=== PATIENT | female | born 1990 | race Caucasian/White ===

== ENCOUNTER → 2022-05-14 09:16 | Outpatient (CLI) | payer OTHER, SELFPAY | PROVIDERS: Visit Provider Obstetrics & Gynecology | DX: N39.0 Urinary tract infection, site not specified (principal) | CPT/HCPCS: 87086 ==

== ENCOUNTER 2022-07-12 09:39 | Emergency (ER) | payer OTHER, SELFPAY ==
[2022-07-12 10:25] VITALS: BP 140/89; PULSE 85; RESP 19; TEMP 36.8; O2SAT 98; BMI 41.3
--- NOTE | 2022-07-12 10:51 | EXP.UTC ---
Discharge Plan Disposition Patient Disposition: Home, Self-Care Condition: Good Prescriptions Prescriptions: New methylprednisolone [Medrol (Isreal)] 4 mg tablets,dose pack See Rx Instructions .Route .COMPLEX 6 Days Qty: 21 0RF Rx Instructions: taper pack; gsjiqhyxykxlhij-cvxcclscu-YY [Bromfed DM] 2-30-10 mg/5 mL Syrup 10 ml PO Q4H PRN (Reason: Cough) Qty: 240 0RF amoxicillin-pot clavulanate 875-125 mg Tablet 1 tab PO Q12H Qty: 20 0RF No Action cholecalciferol (vitamin D3) 1,250 mcg (50,000 unit) capsule 1,250 mcg PO WEEKLY ascorbic acid (vitamin C) 500 mg capsule PO omeprazole magnesium [Acid [employer] Programs Director (omeprazole)] 20 mg capsule,delayed release(DR/EC) 20 mg PO DAILY Referrals Follow up/Referrals: Provider,Referral, MD [Primary Care Provider] - See instructions Activity Restrictions/Add. Instructions Additional Instructions/Restrictions: *Monitor Temp, Over the counter Motrin or Tylenol as directed/as needed Tylenol every 4 hours and Motrin every 6 hours (as long as your family doctor has told you that you can take it) for fever or pain. and straight to ER if unable to lower temp less than 101.0 after medication given *Warm salt water gargles may help to soothe the throat *Throat Lozenges? *Warm fluids like tea with honey may help to soothe the throat? *Sleep elevated *Humidifier/Vaporizer *Bromfed may cause drowsiness. Know how it effects you (your child) before driving, caring for small child, or sending your child to school. Not other antihistamines/allergy medications while taking bromfed Follow up IMMEDIATELY for new or worsening symptoms or no Noticeable improvement over the next 48-72 hours. 911 for difficulty breathing or swallowing Clinical Impressions Clinical Impression: Sinusitis Instructions Patient Instructions: DI for Sinusitis, Sinusitis Discharge ED Provider: Gill Tsai [facility] HPI General Stated complaint: Congestion, cough Mode of Arrival: Ambulatory Source of Information: Patient Limitations: No Limitations Time Seen by Provider: 07/12/22 10:52 Description of Symptoms (Recalled from Triage Doc. by RN): PATIENT C/O PRODUCTIVE COUGH X 1 WEEK HEENT Symptoms (Recalled from RN notes): No Resp Symptoms (Recalled from RN notes): Yes Skin Symptoms (Recalled from RN notes): No MS Symptoms (Recalled from RN notes): No Functional Status (Recalled from RN notes): WNL History of Present Illness Provider Complaint: Patient states that she has been having sinus pain and pressure, cough and when she wakes up in the morning at times she can cough up some mucous States that today she was still having pressure behind her eyes so she came in to get checked Related Data Home Medications Medication Instructions Recorded Confirmed ascorbic acid (vitamin C) 500 mg mg PO 05/13/22 05/13/22 capsule cholecalciferol (vitamin D3) 1,250 1,250 mcg PO WEEKLY 05/13/22 05/13/22 mcg (50,000 unit) capsule omeprazole magnesium 20 mg 20 mg PO DAILY 05/13/22 05/13/22 capsule,delayed release (Acid [employer] Programs Director (omeprazole)) Previous Rx's Medication Instructions Recorded amoxicillin 875 mg-potassium 1 tab PO Q12H #20 tabs 07/12/22 clavulanate 125 mg tablet ssjgbczrxsmuyst-ripshiewxdxfkhw-FD 10 ml PO Q4H PRN Cough #240 mL 07/12/22 2 mg-30 mg-10 mg/5 mL oral syrup (Bromfed DM) methylprednisolone 4 mg tablets in See Rx Instructions .Route 07/12/22 a dose pack (Medrol (Isreal)) .COMPLEX 6 days #21 tabs Allergies Allergy/AdvReac Type Severity Reaction Status Date / Time codeine Allergy Mild nauseated Verified 05/13/22 14:18 Worker's Comp Is this a Worker's Comp case?: No PFSH PFSH Medical History (Updated 07/12/22 @ 11:03 by Gill Tsai APRN) Anxiety Depression Social History (Updated 07/12/22 @ 10:39 by Nohemi David RN) Smoking Status: Never smoker second hand exposure: No alcohol intake: never
[2022-07-12 11:03] VITALS: BP 140/89; PULSE 85; RESP 19; TEMP 36.8; O2SAT 98
== END 2022-07-12 11:09 | disposition home or self-care (01) ==
PROVIDERS: Emergency Provider Nurse Practitioner
DX: J32.9 Chronic sinusitis, unspecified (principal)
CPT/HCPCS: 99212; G0463

== ENCOUNTER 2022-07-31 14:28 | Emergency (ER) | payer OTHER, SELFPAY ==
[2022-07-31 15:45] VITALS: BP 141/77; PULSE 78; RESP 18; TEMP 36.6; O2SAT 99; BMI 46.0
--- NOTE | 2022-07-31 16:07 | EXP.UTC ---
Discharge Plan Disposition Patient Disposition: Home, Self-Care Condition: Good Prescriptions Prescriptions: New phenazopyridine [Pyridium] 200 mg tablet 200 mg PO Q8H 2 Days Qty: 6 0RF nitrofurantoin monohyd/m-cryst [Macrobid] 100 mg capsule 100 mg PO Q12H 5 Days Qty: 10 0RF Rx Instructions: must administer with a meal/food No Action cholecalciferol (vitamin D3) 1,250 mcg (50,000 unit) capsule 1,250 mcg PO WEEKLY ascorbic acid (vitamin C) 500 mg capsule PO omeprazole magnesium [Acid [employer]ler (omeprazole)] 20 mg capsule,delayed release(DR/EC) 20 mg PO DAILY methylprednisolone [Medrol (Isreal)] 4 mg tablets,dose pack See Rx Instructions .Route .COMPLEX 6 Days Qty: 21 0RF Rx Instructions: taper pack; kvoyuxeazwhqvee-protorszf-AM [Bromfed DM] 2-30-10 mg/5 mL Syrup 10 ml PO Q4H PRN (Reason: Cough) Qty: 240 0RF amoxicillin-pot clavulanate 875-125 mg Tablet 1 tab PO Q12H Qty: 20 0RF Referrals Follow up/Referrals: Ish Deng [Primary Care Provider] - See instructions Activity Restrictions/Add. Instructions Additional Instructions/Restrictions: *Increase fluids. Water not Soda or Tea *Start antibiotic immediately and be sure to take as ordered for the FULL length of time although you should start to see improvement over the next 48 hours *Pyridium as needed Remember this medication will turn your urine . This is normal but it will stain what ever it gets on *You should not use Pyridium for more than 48 hours. If so , follow up with your primary physician to review urine culture and ensure that antibiotic is adequate for infection *Be SURE to follow up anytime for new or worsening symptoms with your family doctor. AND in 48 hours for urine culture results with your family doctor, if you do not have a doctor then you may call back to the [facility] for urine culture results and further treatment. We do recommend that you choose and establish care with a Primary Care Physician. ?AND follow up with them ?in 10-14 days to repeat UA to ensure infection is resolved and blood no longer present *Be sure to let your PCP know that we sent urine cultures from the [facility] so they can follow up to ensure that you area the on the correct antibiotic Call your doctor office and make appointment for 48 hours (2 days from today) ?to follow up and get the results of your urine culture and further treatment Clinical Impressions Clinical Impression: Urinary tract infection Instructions Patient Instructions: DI for Urinary Tract Infection (UTI) Discharge ED Provider: Gill Tsai [facility] HPI General Stated complaint: Possible bladder infection, burning, urgency, pain Mode of Arrival: Ambulatory Source of Information: Patient Limitations: No Limitations Time Seen by Provider: 07/31/22 16:08 Description of Symptoms (Recalled from Triage Doc. by RN): PATIENT C/O BLADDER PRESSURE AND BURNING WITH URINATION THAT STARTED THIS MORNING HEENT Symptoms (Recalled from RN notes): No Resp Symptoms (Recalled from RN notes): No Skin Symptoms (Recalled from RN notes): No MS Symptoms (Recalled from RN notes): No Functional Status (Recalled from RN notes): WNL History of Present Illness Provider Complaint: Patient states that this morning she started having some burning with urination and the feeling like she had to go States that she has been having pressure and urinating more frequently than usual and feels like it did when she had UTI Related Data Home Medications Medication Instructions Recorded Confirmed ascorbic acid (vitamin C) 500 mg mg PO 05/13/22 05/13/22 capsule cholecalciferol (vitamin D3) 1,250 1,250 mcg PO WEEKLY 05/13/22 05/13/22 mcg (50,000 unit) capsule omeprazole magnesium 20 mg 20 mg PO DAILY 05/13/22 05/13/22 capsule,delayed release (Acid [employer]ler (omeprazole)) Previous Rx's Medication Instructions Recorded amoxicillin 875 mg-potassium 1 tab PO Q12H #20 tabs 07/12/22 c
[2022-07-31 16:13] VITALS: BP 141/77; PULSE 78; RESP 18; TEMP 36.6; O2SAT 99
[2022-07-31 16:15] LABS: Apearance,Urine Clear (Clear); Bilirubin,Urine Negative (Negative); Blood, Urine Trace (Negative); Color,Urine Yellow (Yellow); Glucose,Urine (UA) Negative (Negative); Ketones,Urine Negative (Negative); Protein,Urine Negative (Negative); UTC Leukocyte Esterase,Urine Negative (Negative); UTC Nitrate,Urine Negative (Negative); Urobilinogen,Urine 1 EU/dl (0.2)
== END 2022-07-31 16:24 | disposition home or self-care (01) ==
PROVIDERS: Emergency Provider Nurse Practitioner; PCP Pediatrics
DX: N39.0 Urinary tract infection, site not specified (principal)
CPT/HCPCS: 81003; 87086; 87088; 87186; 99212; G0463

== ENCOUNTER 2022-09-03 09:59 | Emergency (ER) | payer OTHER, SELFPAY ==
[2022-09-03 10:18] VITALS: BP 145/80; PULSE 60; RESP 19; TEMP 36.8; O2SAT 98; BMI 46.0
--- NOTE | 2022-09-03 10:32 | EXP.UTC ---
Discharge Plan Disposition Patient Disposition: Home, Self-Care Condition: Good Prescriptions Prescriptions: New onwtqwifgqhjfoc-ikexforkc-ZS [Bromfed DM] 2-30-10 mg/5 mL Syrup 10 ml PO Q4H PRN (Reason: Cough) Qty: 240 0RF amoxicillin-pot clavulanate 875-125 mg Tablet 1 tab PO Q12H Qty: 20 0RF polymyxin B sulf-trimethoprim [Polytrim] 10,000 unit- 1 mg/mL drops 2 drp ophthalmic (eye) Q6H 7 Days Qty: 10 0RF Rx Instructions: right eye while awake; do not exceed 6 doses in 24 hours methylprednisolone [Medrol (Isreal)] 4 mg tablets,dose pack See Rx Instructions .Route .COMPLEX 6 Days Qty: 21 0RF Rx Instructions: taper pack; No Action cholecalciferol (vitamin D3) 1,250 mcg (50,000 unit) capsule 1,250 mcg PO WEEKLY ascorbic acid (vitamin C) 500 mg capsule PO omeprazole magnesium [Acid Program Support Assistant (omeprazole)] 20 mg capsule,delayed release(DR/EC) 20 mg PO DAILY methylprednisolone [Medrol (Isreal)] 4 mg tablets,dose pack See Rx Instructions .Route .COMPLEX 6 Days Qty: 21 0RF Rx Instructions: taper pack; adnfyxolmjidwyu-zqyfpucua-UN [Bromfed DM] 2-30-10 mg/5 mL Syrup 10 ml PO Q4H PRN (Reason: Cough) Qty: 240 0RF amoxicillin-pot clavulanate 875-125 mg Tablet 1 tab PO Q12H Qty: 20 0RF phenazopyridine [Pyridium] 200 mg tablet 200 mg PO Q8H 2 Days Qty: 6 0RF nitrofurantoin monohyd/m-cryst [Macrobid] 100 mg capsule 100 mg PO Q12H 5 Days Qty: 10 0RF Rx Instructions: must administer with a meal/food Referrals Follow up/Referrals: Ish Sherwood MD [Primary Care Provider] - See instructions Activity Restrictions/Add. Instructions Additional Instructions/Restrictions: *Monitor Temp, Over the counter Motrin or Tylenol as directed/as needed Tylenol every 4 hours and Motrin every 6 hours (as long as your family doctor has told you that you can take it) for fever or pain. and straight to ER if unable to lower temp less than 101.0 after medication given *Warm salt water gargles may help to soothe the throat *Throat Lozenges? *Warm fluids like tea with honey may help to soothe the throat? *Sleep elevated *Humidifier/Vaporizer *Flonase 2 sprays in each nostril daily but be aware that it may take 2-3 days before you notice improvement Follow up IMMEDIATELY for new or worsening symptoms or no Noticeable improvement over the next 48-72 hours. 911 for difficulty breathing or swallowing Clinical Impressions Clinical Impression: Sinusitis, Conjunctivitis Instructions Patient Instructions: Conjunctivitis, DI for Conjunctivitis, DI for Sinusitis, Sinusitis Discharge ED Provider: Gill Tsai [facility] [place] General Stated complaint: Sinus pain, drainage, congestion, RT eye redness Mode of Arrival: Ambulatory Source of Information: Patient Limitations: No Limitations Time Seen by Provider: 09/03/22 10:32 Description of Symptoms (Recalled from Triage Doc. by RN): sinus pressure, nasal drainage (Yellow/green), and right eye is pink HEENT Symptoms (Recalled from RN notes): Yes Resp Symptoms (Recalled from RN notes): Yes Skin Symptoms (Recalled from RN notes): No MS Symptoms (Recalled from RN notes): No Functional Status (Recalled from RN notes): n/a History of Present Illness Provider Complaint: Patient states that for about a week she has been having sinus congestion and pressure along with cough States that today she woke up and her right eye was matted shut so she came in to get checked Related Data Home Medications Medication Instructions Recorded Confirmed ascorbic acid (vitamin C) 500 mg mg PO 05/13/22 05/13/22 capsule cholecalciferol (vitamin D3) 1,250 1,250 mcg PO WEEKLY 05/13/22 05/13/22 mcg (50,000 unit) capsule omeprazole magnesium 20 mg 20 mg PO DAILY 05/13/22 05/13/22 capsule,delayed release (Acid Program Support Assistant (omeprazole)) Previous Rx's Medication Instructions Recorded amoxicillin 875 mg-p
[2022-09-03 11:02] VITALS: BP 145/80; PULSE 60; RESP 19; TEMP 36.8; O2SAT 98
== END 2022-09-03 11:02 | disposition home or self-care (01) ==
PROVIDERS: Emergency Provider Nurse Practitioner; PCP Pediatrics
DX: J32.9 Chronic sinusitis, unspecified (principal); H10.9 Unspecified conjunctivitis
CPT/HCPCS: 99212; 99213; G0463

== ENCOUNTER → 2023-06-24 08:12 | Outpatient (CLI) | payer OTHER, SELFPAY ==
--- NOTE | 2023-06-24 08:16 | XR_ITS ---
FINAL REPORT CLINICAL HISTORY: Lt Hand Pain..fx 4th ring finger..shielded COMPARISON: None FINDINGS: LEFT HAND: 3 views of the left hand were obtained. There is an oblique nondisplaced fracture of the fourth metacarpal diaphysis. Dorsal soft tissue swelling is identified. Visualized joint spaces are normally aligned. Soft tissues are unremarkable. IMPRESSION: Oblique nondisplaced fracture fourth metacarpal diaphysis as described with associated soft tissue swelling. Reviewed, Interpreted and Dictated by Acosta Arita III, MD Transcribed by Ewa Soto Authenticated and [facility]
== END ==
PROVIDERS: PCP Pediatrics; Visit Provider Orthopaedic Surgery
DX: M79.642 Pain in left hand (principal)
CPT/HCPCS: 73130

== ENCOUNTER → 2023-07-15 08:47 | Outpatient (CLI) | payer OTHER, SELFPAY ==
--- NOTE | 2023-07-15 08:52 | XR_ITS ---
FINAL REPORT CLINICAL HISTORY: left hand fx 3 weeks ago COMPARISON: 06/24/2023 FINDINGS: Left hand Three views were obtained. There is a healing fracture of the proximal 4th metacarpal diaphysis with callus formation. The joint spaces appear normal. No soft tissue abnormality is identified. IMPRESSION: Healing fracture as above. Reviewed, Interpreted and Dictated by Justin Garcia MD Transcribed by Ree Malloy Authenticated and [facility]
== END ==
PROVIDERS: PCP Pediatrics; Visit Provider Orthopaedic Surgery
DX: S62.92XA Unspecified fracture of left hand, initial encounter for closed fracture (principal); Y99.9 Unspecified external cause status
CPT/HCPCS: 73120

== ENCOUNTER 2023-07-30 09:48 | Emergency (ER) | payer OTHER, SELFPAY ==
[2023-07-30 09:55] VITALS: BP 141/92; PULSE 70; RESP 18; TEMP 36.7; O2SAT 98; BMI 49.6
--- NOTE | 2023-07-30 10:11 | EXP.UTC ---
Discharge Plan Disposition Patient Disposition: Home, Self-Care Condition: Good Prescriptions Prescriptions: New methylprednisolone [Medrol (Isreal)] 4 mg tablets,dose pack See Rx Instructions .Route .COMPLEX 6 Days Qty: 21 0RF Rx Instructions: taper pack; ondansetron 4 mg tablet,disintegrating 4 mg PO Q8H PRN (Reason: nausea and vomiting) Qty: 10 0RF amoxicillin-pot clavulanate 875-125 mg Tablet 1 tab PO Q12H Qty: 20 0RF guaifenesin [Mucinex] 600 mg tablet extended release 12hr 1,200 mg PO BID PRN (Reason: cough) Qty: 20 0RF No Action paroxetine HCl 20 mg tablet 20 mg PO DAILY Patient Comments: TAKE 1 TABLET BY MOUTH ONCE DAILY omeprazole 20 mg Capsule,Delayed Release(Dr/Ec) 20 mg PO DAILY Referrals Follow up/Referrals: Ish Sherwood MD [Primary Care Provider] - See instructions Activity Restrictions/Add. Instructions Additional Instructions/Restrictions: *Monitor Temp, Over the counter Motrin or Tylenol as directed/as needed Tylenol every 4 hours and Motrin every 6 hours (as long as your family doctor has told you that you can take it) for fever or pain. and straight to ER if unable to lower temp less than 101.0 after medication given *Warm salt water gargles may help to soothe the throat *Throat Lozenges? *Warm fluids like tea with honey may help to soothe the throat? *Sleep elevated *Humidifier/Vaporizer Take medication as prescribed Follow up IMMEDIATELY for new or worsening symptoms or no Noticeable improvement over the next 48-72 hours. 911 for difficulty breathing or swallowing Clinical Impressions Clinical Impression: Sinusitis Qualifiers: Sinusitis location: unspecified location Chronicity: unspecified Qualified Code(s): J32.9 - Chronic sinusitis, unspecified Instructions Patient Instructions: DI for Sinusitis, Sinusitis Discharge ED Provider: Gill Tsai [facility] General Stated complaint: congestion, headache, nauseous Mode of Arrival: Ambulatory Source of Information: Patient Limitations: No Limitations Time Seen by Provider: 07/30/23 10:11 Description of Symptoms (Recalled from Triage Doc. by RN): PATIENT C/O HEADACHE, COUGH, AND NAUSEA SINCE YESTERDAY HEENT Symptoms (Recalled from RN notes): Yes Resp Symptoms (Recalled from RN notes): Yes Skin Symptoms (Recalled from RN notes): No MS Symptoms (Recalled from RN notes): No Functional Status (Recalled from RN notes): WNL History of Present Illness Provider Complaint: Patient states that she has been having sinus congsetion and pressure for about 2 weeks that has continued to get worse States that yesterday she started with cough and nausea so today when she was still not feeling any better she came in to get checked Related Data Home Medications Medication Instructions Recorded Confirmed omeprazole 20 mg capsule,delayed 20 mg PO DAILY 07/30/23 07/30/23 release paroxetine HCl 20 mg tablet 20 mg PO DAILY 07/30/23 07/30/23 Previous Rx's Medication Instructions Recorded amoxicillin 875 mg-potassium 1 tab PO Q12H #20 tabs 07/30/23 clavulanate 125 mg tablet guaifenesin 600 mg tablet, 1,200 mg PO BID PRN cough #20 tabs 07/30/23 extended release 12 hr (Mucinex) methylprednisolone 4 mg tablets in See Rx Instructions .Route 07/30/23 a dose pack (Medrol (Isreal)) .COMPLEX 6 days #21 tabs ondansetron 4 mg disintegrating 4 mg PO Q8H PRN nausea and 07/30/23 tablet vomiting #10 tabs Allergies Allergy/AdvReac Type Severity Reaction Status Date / Time codeine Allergy Mild nauseated Verified 07/15/23 09:05 nut - unspecified Allergy Verified 07/30/23 10:10 Worker's Comp Is this a Worker's Comp case?: [facility] Dis[facility]: The information contained in this section may have been updated after the patient was seen, as this information can be updated by other users. Medical History (Reviewed 07/15/23 @ 09:05 by Selin Cameron
[2023-07-30 10:20] VITALS: BP 141/92; PULSE 70; RESP 18; TEMP 36.7; O2SAT 98
== END 2023-07-30 10:23 | disposition home or self-care (01) ==
PROVIDERS: Emergency Provider Nurse Practitioner; PCP Pediatrics
DX: J01.90 Acute sinusitis, unspecified (principal); R51.9 Headache, unspecified; R05.9 Cough, unspecified; R09.81 Nasal congestion; R11.0 Nausea
CPT/HCPCS: 99212; 99214; G0463

== ENCOUNTER 2023-08-30 12:06 | Emergency (ER) | payer OTHER, SELFPAY ==
[2023-08-30 12:45] VITALS: BP 132/66; PULSE 77; RESP 21; TEMP 36.7; O2SAT 97; BMI 48.0
--- NOTE | 2023-08-30 12:51 | EXP.UTC ---
Discharge Plan Disposition Patient Disposition: Home, Self-Care Condition: Good Prescriptions Prescriptions: New promethazine-DM 6.25-15 mg/5 mL Syrup 5 ml PO Q6H PRN (Reason: Cough) Qty: 240 0RF methylprednisolone 4 mg Tablets,Dose Pack 4 mg PO DIRECTED 6 Days Qty: 21 0RF Rx Instructions: Take 1 pack as directed for 6 days albuterol sulfate [Ventolin HFA] 90 mcg/actuation HFA aerosol inhaler 2 puff inhalation Q6H PRN (Reason: shortness of breath or wheezing) Qty: 6.7 0RF amoxicillin-pot clavulanate 875-125 mg Tablet 1 tab PO Q12H Qty: 20 0RF guaifenesin [Mucinex] 600 mg tablet extended release 12hr 600 - 1,200 mg PO BIDP PRN (Reason: Congestion) Qty: 30 0RF No Action diclofenac sodium [Voltaren Arthritis Pain] 1 % gel 2 g topical QID Qty: 100 3RF Rx Instructions: apply to single elbow, wrist or hand; for hand includes palm/fingers/back of hand paroxetine HCl 20 mg tablet 20 mg PO DAILY Patient Comments: TAKE 1 TABLET BY MOUTH ONCE DAILY omeprazole 20 mg Capsule,Delayed Release(Dr/Ec) 20 mg PO DAILY methylprednisolone [Medrol (Isreal)] 4 mg tablets,dose pack See Rx Instructions .Route .COMPLEX 6 Days Qty: 21 0RF Rx Instructions: taper pack; ondansetron 4 mg tablet,disintegrating 4 mg PO Q8H PRN (Reason: nausea and vomiting) Qty: 10 0RF amoxicillin-pot clavulanate 875-125 mg Tablet 1 tab PO Q12H Qty: 20 0RF guaifenesin [Mucinex] 600 mg tablet extended release 12hr 1,200 mg PO BID PRN (Reason: cough) Qty: 20 0RF Referrals Follow up/Referrals: Ish Sherwood MD [Primary Care Provider] - See instructions Activity Restrictions/Add. Instructions Additional Instructions/Restrictions: Drink plenty of fluids. Take tylenol or ibuprofen for pain or fever. Take the medications as directed. Follow up with your regular doctor. GO TO THE ER FOR ANY WORSENING SYMPTOMS Clinical Impressions Clinical Impression: Sinusitis Instructions Patient Instructions: Sinusitis, DI for Sinusitis [place] ED [place] Bashir [place] [facility] [place] General Stated complaint: congestion cough Mode of Arrival: Ambulatory Source of Information: Patient Limitations: No Limitations Time Seen by Provider: 08/30/23 12:51 Description of Symptoms (Recalled from Triage Doc. by RN): PATIENT C/O COUGH AND CONGESTION SINCE LAST FRIDAY HEENT Symptoms (Recalled from RN notes): Yes Resp Symptoms (Recalled from RN notes): Yes Skin Symptoms (Recalled from RN notes): No MS Symptoms (Recalled from RN notes): No Functional Status (Recalled from RN notes): WNL History of Present Illness Provider Complaint: She states that for the past 5 days she has had sinus congestion, cough, and malaise. Related Data Home Medications Medication Instructions Recorded Confirmed omeprazole 20 mg capsule,delayed 20 mg PO DAILY 07/30/23 08/05/23 release paroxetine HCl 20 mg tablet 20 mg PO DAILY 07/30/23 08/30/23 Previous Rx's Medication Instructions Recorded amoxicillin 875 mg-potassium 1 tab PO Q12H #20 tabs 07/30/23 clavulanate 125 mg tablet guaifenesin 600 mg tablet, 1,200 mg PO BID PRN cough #20 tabs 07/30/23 extended release 12 hr (Mucinex) methylprednisolone 4 mg tablets in See Rx Instructions .Route 07/30/23 a dose pack (Medrol (Isreal)) .COMPLEX 6 days #21 tabs ondansetron 4 mg disintegrating 4 mg PO Q8H PRN nausea and 07/30/23 tablet vomiting #10 tabs diclofenac sodium 1 % topical gel 2 g topical QID #100 grams 08/05/23 (Voltaren Arthritis Pain) albuterol sulfate 90 mcg/actuation 2 puff inhalation Q6H PRN 08/30/23 aerosol inhaler (Ventolin HFA) shortness of breath or wheezing #6.7 grams amoxicillin 875 mg-potassium 1 tab PO Q12H #20 tabs 08/30/23 clavulanate 125 mg tablet guaifenesin 600 mg tablet, 600 - 1,200 mg PO BIDP PRN 08/30/23 extended release 12 hr (Mucinex) Congestion #30 tabs methylprednisolone 4 mg tablets in 4 mg PO DIRECTED 6 days #21 tabs 08/30/23 a dose pack promethazine-DM 6.25 mg-15 mg/5 mL 5 ml PO Q6H PRN Cough #240 mL 08/30/23 oral syrup Allergies Allergy/AdvReac Type Severity Reaction Status Date / Time codeine Allergy Mild nauseated Verified 08/05/23 10:22 nut - unspecified Allergy Verified 08/05/23 10:22 Worker's Comp Is this a Worker's Comp case?: No [facility] Disclaimer: The information contained in this section may have been updated after the patient was seen, as this information can be updated by other users. Medical History Anxiety Depression History of anemia Urinary tract infection Surgical History History of wisdom tooth extraction Social History Smoking Status: Never smoker second hand exposure: No alcohol intake: never substance use type: denies use current occupational status: employed Travel in the last 8 weeks: None housing: house current occupational exposures/hazards: No ROS Obtained: Yes All systems reviewed & no additional complaints except as documented Constitutional Constitutional: Reports poor appetite Eyes Eyes: Reports system reviewed and no additional complaints, except as documented ENT Ears, Nose, Mouth, and Throat: Reports as per HPI Cardiovascular Cardiovascular: Reports system reviewed and no additional complaints, except as documented and Denies chest pain Respiratory Respiratory: Denies shortness of breath, Reports chest congestion, Reports cough, Denies stridor and Denies wheezing Gastrointestinal Gastrointestingal: Reports system reviewed and no additional complaints, except as documented; Denies abdominal pain, diarrhea or vomiting Musculoskeletal Musculoskeletal: Reports system reviewed and no additional complaints, except as documented and Denies arthralgias Integumentary/Breasts Skin/Breast: Reports system reviewed and no additional complaints, except as documented and Denies rash Neurologic Neurologic: Denies paresthesias Allergic/Immunologic Allergic/Immunologic: Denies wheezing Physical Exam General General appearance: alert and in no apparent distress Eye Eye exam: Present normal appearance, PERRL and EOMI ENT ENT exam: Present mucous membranes moist and normal external ear exam Expanded ENT Exam External ear exam: Present normal external inspection TM/Canal exam: Bilateral TM: erythema and bulging Nose exam: Absent sinus tenderness Nasal speculum exam: Bilateral: normal Mouth exam: Present normal external inspection; Absent drooling Teeth exam: Present normal inspection Throat exam: Present tonsillar erythema and tonsillomegaly Neck Neck exam: Present normal inspection, full ROM and trachea midline; Absent tenderness, lymphadenopathy or thyromegaly Chest Chest inspection: Present normal inspection and symmetric chest wall rise; Absent tenderness or rash Respiratory Respiratory exam: Present normal lung sounds bilaterally; Absent respiratory distress, wheezes, stridor or accessory muscle use Cardiovascular Cardiovascular exam: Present regular rate, normal rhythm and normal heart sounds Abdominal Exam Abdominal exam: Present soft; Absent distention, tenderness, guarding, rebound or rigidity Extremities Exam Extremities exam: Present normal inspection, full ROM and normal capillary refill; Absent tenderness or calf tenderness Back Exam Back exam: Present normal inspection and full ROM; Absent tenderness Neurological Exam Neurological exam: Present alert and oriented X3 Psychiatric Psychiatric exam: Present normal affect and normal mood Skin Skin exam: Present warm, dry, intact and normal color Lymphatic Lymphatic Findings: no adenopathy Medical Decision Making Medical Records Medical records reviewed: No I reviewed the patient's medical records. Luis Antonio Inquiry Pt receiving controlled substance: No Vital Signs: 08/30/23 12:45 Temperature 98.0 F Temperature Source Oral Pulse Rate [Left Brachial] 77 Respiratory Rate 21 Blood Pressure [Left Arm] 132/66 Blood Pressure Mean [Left Arm] 88 Blood Pressure Source [Left Arm] Automatic Cuff Blood Pressure Position [Left Arm] Sitting 02 Sat by Pulse Oximetry 97 Oxygen Delivery Method Room Air Lab Data Lab results reviewed: Yes I reviewed the patient's lab results.
[2023-08-30 13:12] VITALS: BP 132/66; PULSE 77; RESP 21; TEMP 36.7; O2SAT 97
== END 2023-08-30 13:19 | disposition home or self-care (01) ==
PROVIDERS: Emergency Provider Nurse Practitioner Family; PCP Pediatrics
DX: J01.90 Acute sinusitis, unspecified (principal); R05.9 Cough, unspecified; R09.81 Nasal congestion; R53.81 Other malaise
CPT/HCPCS: 99212; 99214; G0463

== ENCOUNTER 2023-09-14 09:43 | Emergency (ER) | payer OTHER, SELFPAY ==
--- NOTE | 2023-09-14 10:00 | EXP.UTC ---
Discharge Plan Disposition Patient Disposition: Home, Self-Care Condition: Good Prescriptions Prescriptions: New prednisone 10 mg tablet 10 mg PO DIRECTED 9 Days Qty: 21 0RF Rx Instructions: Take 4 tablets daily for 3 days, then take 2 tablets daily for 3 days, then take 1 tablet daily for 3 days, then stop. benzonatate [benzonatate] 100 mg capsule 100 mg PO TIDP PRN (Reason: Cough) Qty: 30 0RF polymyxin B sulf-trimethoprim 10,000 unit- 1 mg/mL drops 1 drp ophthalmic (eye) Q3H 7 Days Qty: 10 0RF Rx Instructions: while awake; do not exceed 6 doses in 24 hours No Action diclofenac sodium [Voltaren Arthritis Pain] 1 % gel 2 g topical QID Qty: 100 3RF Rx Instructions: apply to single elbow, wrist or hand; for hand includes palm/fingers/back of hand paroxetine HCl 20 mg tablet 20 mg PO DAILY Patient Comments: TAKE 1 TABLET BY MOUTH ONCE DAILY omeprazole 20 mg Capsule,Delayed Release(Dr/Ec) 20 mg PO DAILY albuterol sulfate [Ventolin HFA] 90 mcg/actuation HFA aerosol inhaler 2 puff inhalation Q6H PRN (Reason: shortness of breath or wheezing) Qty: 6.7 0RF prednisone 20 mg tablet See Rx Instructions .ROUTE .COMPLEX Patient Comments: TAKE 2 TABLETS BY MOUTH ONCE DAILY FOR 3 DAYS Rx Instructions: TAKE 2 TABLETS BY MOUTH ONCE DAILY FOR 3 DAYS cefdinir 300 mg capsule 300 mg PO BID Patient Comments: TAKE 1 CAPSULE BY MOUTH TWICE DAILY FOR 10 DAYS Referrals Follow up/Referrals: Ish Sherwood MD [Primary Care Provider] - See instructions Activity Restrictions/Add. Instructions Additional Instructions/Restrictions: Drink plenty of fluids. Take tylenol or ibuprofen for pain or fever. Continue the cefdinir (antibiotic) that you are on. Start the prednisone taper dose. Follow up with your regular doctor. GO TO THE ER FOR ANY WORSENING SYMPTOMS Clinical Impressions Clinical Impression: Acute bronchitis, Conjunctivitis Instructions Patient Instructions: Acute Bronchitis, DI for Acute Bronchitis [place]charge ED Provider[place] Bashir [place] [facility] [place] General Stated complaint: congestion pink eye cough Time Seen by Provider: 09/14/23 10:00 History of Present Illness Provider Complaint: She states that she has developed chest congestion again. She is currently taking cefdinir that was prescribed by her pcp for this. She was on oral steroids but she states that she finished them 2 days ago. She states that while she was on the steroids she was feeling better, but since finishing them her cough has returned. She also c/o left eye irritation with yellowish discharge and matting. She denies any injury or foreign body to the eye. Related Data Home Medications Medication Instructions Recorded Confirmed omeprazole 20 mg capsule,delayed 20 mg PO DAILY 07/30/23 08/05/23 release paroxetine HCl 20 mg tablet 20 mg PO DAILY 07/30/23 08/30/23 cefdinir 300 mg capsule 300 mg PO BID 09/14/23 09/14/23 prednisone 20 mg tablet See Rx Instructions .Route .COMPLEX 09/14/23 09/14/23 Previous Rx's Medication Instructions Recorded diclofenac sodium 1 % topical gel 2 g topical QID #100 grams 08/05/23 (Voltaren Arthritis Pain) albuterol sulfate 90 mcg/actuation 2 puff inhalation Q6H PRN 08/30/23 aerosol inhaler (Ventolin HFA) shortness of breath or wheezing #6.7 grams benzonatate 100 mg capsule 100 mg PO TIDP PRN Cough #30 caps 09/14/23 polymyxin B sulfate 10,000 1 drp ophthalmic (eye) Q3H 7 days 09/14/23 unit-trimethoprim 1 mg/mL eye drops #10 mL prednisone 10 mg tablet 10 mg PO DIRECTED 9 days #21 09/14/23 tabs Allergies Allergy/AdvReac Type Severity Reaction Status Date / Time codeine Allergy Mild nauseated Verified 09/14/23 10:24 nut - unspecified Allergy Verified 09/14/23 10:24 PFSH PFS Disclaimer: The information contained in this section may have been updated after the patient was seen, as this information can be updated by other users. Medical History Anxiety Depression History of anemia Urinary tract infection Surgical History History of wisdom tooth extraction Social History Smoking Status: Never smoker second hand exposure: No alcohol intake: never substance use type: denies use current occupational status: employed Travel in the last 8 weeks: None housing: house current occupational exposures/hazards: No ROS Obtained: Yes All systems reviewed & no additional complaints except as documented Constitutional Constitutional: Reports poor appetite Eyes Eyes: Reports system reviewed and no additional complaints, except as documented ENT Ears, Nose, Mouth, and Throat: Reports as per HPI Cardiovascular Cardiovascular: Reports system reviewed and no additional complaints, except as documented and Denies chest pain Respiratory Respiratory: Denies shortness of breath, Reports chest congestion, Reports cough, Denies stridor and Denies wheezing Gastrointestinal Gastrointestingal: Reports system reviewed and no additional complaints, except as documented; Denies abdominal pain, diarrhea or vomiting Musculoskeletal Musculoskeletal: Reports system reviewed and no additional complaints, except as documented and Denies arthralgias Integumentary/Breasts Skin/Breast: Reports system reviewed and no additional complaints, except as documented and Denies rash Neurologic Neurologic: Denies paresthesias Allergic/Immunologic Allergic/Immunologic: Denies wheezing Physical Exam General General appearance: alert and in no apparent distress Eye Eye exam: Present normal appearance, PERRL and EOMI ENT ENT exam: Present mucous membranes moist and normal external ear exam Expanded ENT Exam External ear exam: Present normal external inspection TM/Canal exam: Bilateral TM: erythema and bulging Nose exam: Absent sinus tenderness Nasal speculum exam: Bilateral: normal Mouth exam: Present normal external inspection; Absent drooling Teeth exam: Present normal inspection Throat exam: Present tonsillar erythema and tonsillomegaly Neck Neck exam: Present normal inspection, full ROM and trachea midline; Absent tenderness, lymphadenopathy or thyromegaly Chest Chest inspection: Present normal inspection and symmetric chest wall rise; Absent tenderness or rash Respiratory Respiratory exam: Present normal lung sounds bilaterally; Absent respiratory distress, wheezes, stridor or accessory muscle use Cardiovascular Cardiovascular exam: Present regular rate, normal rhythm and normal heart sounds Abdominal Exam Abdominal exam: Present soft; Absent distention, tenderness, guarding, rebound or rigidity Extremities Exam Extremities exam: Present normal inspection, full ROM and normal capillary refill; Absent tenderness or calf tenderness Back Exam Back exam: Present normal inspection and full ROM; Absent tenderness Neurological Exam Neurological exam: Present alert and oriented X3 Psychiatric Psychiatric exam: Present normal affect and normal mood Skin Skin exam: Present warm, dry, intact and normal color Lymphatic Lymphatic Findings: no adenopathy Medical Decision Making Medical Records Medical records reviewed: No I reviewed the patient's medical records. Luis Antonio Inquiry Pt receiving controlled substance: No Radiology Data #1: Image(s): Chest Image Reviewed: Yes I reviewed the patient's radiology image and Yes I have reviewed radiologist's interpretation Preliminary Findings: Normal/NAD and No Infiltrates Seen PROCEDURE INFORMATION: Exam: XR Chest Exam date and time: 09/14/2023 10:24 AM Age: 32 years old Clinical indication: Cough and shortness of breath and other: Cough with white sputum TECHNIQUE: Imaging protocol: Radiologic exam of the chest. Views: 2 views. COMPARISON: No relevant prior studies available. FINDINGS: Lungs: Unremarkable. No consolidation. Pleural spaces: Unremarkable. No pleural effusion. No pneumothorax. Heart/Mediastinum: Unremarkable. No cardiomegaly. Bones/joints: Unremarkable. IMPRESSION: No acute findings.
[2023-09-14 10:10] VITALS: BP 171/89; PULSE 86; RESP 18; TEMP 36.5; O2SAT 99; BMI 47.9
--- NOTE | 2023-09-14 10:26 | XR_ITS ---
PROCEDURE INFORMATION: Exam: XR Chest Exam date and time: 09/14/2023 10:24 AM Age: 32 years old Clinical indication: Cough and shortness of breath and other: Cough with white sputum TECHNIQUE: Imaging protocol: Radiologic exam of the chest. Views: 2 views. COMPARISON: No relevant prior studies available. FINDINGS: Lungs: Unremarkable. No consolidation. Pleural spaces: Unremarkable. No pleural effusion. No pneumothorax. Heart/Mediastinum: Unremarkable. No cardiomegaly. Bones/joints: Unremarkable. IMPRESSION: No acute findings.
--- NOTE | 2023-09-14 10:31 | PC.NURSE ---
Went to RAD
--- NOTE | 2023-09-14 10:37 | PC.NURSE ---
Pt's back from RAD
[2023-09-14 11:06] LABS: Adenovirus,PCR Not Detected (NotDetected); Coronavirus 19, PCR Not Detected (NotDetected); Coronavirus 229E Not Detected (NotDetected); Coronavirus NL63 Not Detected (NotDetected); Coronavirus OC43 Not Detected (NotDetected); Coronovirus HKU1,PCR Not Detected (NotDetected); Human Metapneumovirus Not Detected (NotDetected); Influenza A, PCR Not Detected (NotDetected); Influenza AH1, 2009 Not Detected (NotDetected); Influenza AH1, PCR Not Detected (NotDetected); Influenza AH3,PCR Not Detected (NotDetected); Influenza B, PCR Not Detected (NotDetected); Parainfluenza 1, PCR Not Detected (NotDetected); Parainfluenza 2, PCR Not Detected (NotDetected); Parainfluenza 3, PCR Not Detected (NotDetected); Parainfluenza 4, PCR Not Detected (NotDetected); Respiratory Syncytial Virus Not Detected (NotDetected); Rhinovirus/Enterovirus Not Detected (NotDetected)
[2023-09-14 11:11] VITALS: BP 171/89; PULSE 86; RESP 18; TEMP 36.5; O2SAT 99
== END 2023-09-14 11:11 | disposition home or self-care (01) ==
PROVIDERS: Emergency Provider Nurse Practitioner Family; PCP Pediatrics
DX: J20.9 Acute bronchitis, unspecified (principal); H10.32 Unspecified acute conjunctivitis, left eye; R09.89 Other specified symptoms and signs involving the circulatory and respiratory systems; R05.9 Cough, unspecified
CPT/HCPCS: 71046; 87632; 87635; 99212; 99214; G0463

== ENCOUNTER 2024-03-01 08:42 | Emergency (ER) | payer OTHER, SELFPAY ==
[2024-03-01 08:50] VITALS: BP 125/76; PULSE 90; RESP 22; TEMP 37.6; O2SAT 96; BMI 48.2
--- NOTE | 2024-03-01 09:00 | ED_ITS ---
Discharge Plan Disposition Patient Disposition: Home, Self-Care Condition: Good Prescriptions Prescriptions: New cefdinir 300 mg capsule 300 mg PO Q12H 10 Days Qty: 20 0RF [id number] [Bromfed DM] 2-30-10 mg/5 mL syrup 10 ml PO Q4-6H PRN (Reason: cough/sinus symptoms) Qty: 200 0RF No Action paroxetine HCl 30 mg tablet 30 mg PO DAILY losartan 25 mg tablet 25 mg PO DAILY lisinopril 5 mg tablet 5 mg PO DAILY etonogestrel-ethinyl estradiol [EluRyng] 0.12-0.015 mg/24 hr ring 1 vag ring VAGINAL ONCE Patient Comments: INSERT 1 RING VAGINALLY EVERY [address] FOR 3 WEEKS OF A 4 WEEK CYCLE Referrals Follow up/Referrals: Ish Deng [Primary Care Provider] - See instructions Activity Restrictions/Add. Instructions Additional Instructions/Restrictions: If symptoms persist or worsen, return to clinic or go to PCP. Take medication as prescribed. Increase fluids and rest. Call back this evening for results of respiratory panel Clinical Impressions Clinical Impression: Strep throat, Viral upper respiratory illness Instructions Patient Instructions: DI for Strep Throat, DI for Viral Upper Respiratory Infection -- Adult Discharge ED Provider: Tracey Santiago [facility] [place] General Stated complaint: chills head congestion body aches Time Seen by Provider: 03/01/24 09:00 History of Present Illness Provider Complaint: Pt relates that she started feeling poorly yesterday and woke up this morning feeling worse. She states that she has had a headache, sore throat, upset stomach, sinus drainage/congestion, cough, and general malaise. She has taken Zyrtec, Zinc, and Motrin for her symptoms. Related Data Home Medications Medication Instructions Recorded Confirmed etonogestrel 0.12 mg-ethinyl 1 vag ring vaginal ONCE 03/01/24 03/01/24 estradiol 0.015 mg/24 hr vaginal ring (EluRyng) lisinopril 5 mg tablet 5 mg PO DAILY 03/01/24 03/01/24 losartan 25 mg tablet 25 mg PO DAILY 03/01/24 03/01/24 paroxetine HCl 30 mg tablet 30 mg PO DAILY 03/01/24 03/01/24 Previous Rx's Medication Instructions Recorded uiushegmjajcgon-qmypsnyjpsjbofn-JO 10 ml PO Q4-6H PRN cough/sinus 03/01/24 2 mg-30 mg-10 mg/5 mL oral syrup symptoms #200 mL (Bromfed DM) cefdinir 300 mg capsule 300 mg PO Q12H 10 days #20 caps 03/01/24 Allergies Allergy/AdvReac Type Severity Reaction Status Date / Time codeine Allergy Mild nauseated Verified 12/12/23 10:16 nut - unspecified Allergy Verified 12/12/23 10:16 PFSH [facility] Disclaimer: The information contained in this section may have been updated after the patient was seen, as this information can be updated by other users. Medical History (Updated 03/01/24 @ 09:11 by Tracey Santiago APRN) Hypertension Menorrhagia Dysmenorrhea History of anemia Depression Anxiety Surgical History History of wisdom tooth extraction Family History Other No significant family history Social History Smoking Status: Never smoker second hand exposure: No alcohol intake: never substance use type: denies use current occupational status: employed Travel in the last 8 weeks: None housing: house current occupational exposures/hazards: No ROS Obtained: Yes All systems reviewed & no additional complaints except as documented Constitutional Constitutional: Reports system reviewed and no additional complaints, except as documented, Reports body ache, Reports chills, Reports headache(s) and Reports malaise Eyes Eyes: Reports system reviewed and no additional complaints, except as documented ENT Ears, Nose, Mouth, and Throat: Reports system reviewed and no additional complaints, except as documented, Reports otalgia, Reports headache(s), Reports nasal congestion and Reports nasal discharge Cardiovascular Cardiovascular: Reports system reviewed and no additional complaints, except as documented Respiratory Respiratory: Reports system reviewed and no additional complaints, except as documented and Reports non-productive cough Gastrointestinal Gastrointestingal: Reports system reviewed and no additional complaints, except as documented and nausea Genitourinary Female Genitourinary: Reports system reviewed and no additional complaints, except as documented Musculoskeletal Musculoskeletal: Reports system reviewed and no additional complaints, except as documented Integumentary/Breasts Skin/Breast: Reports system reviewed and no additional complaints, except as documented Neurologic Neurologic: Reports system reviewed and no additional complaints, except as documented and Reports headache(s) Endocrine Endocrine: Reports system reviewed and no additional complaints, except as documented Hematologic/Lymphatic Henatologic/Lymphatic: Reports system reviewed and no additional complaints, except as documented Allergic/Immunologic Allergic/Immunologic: Reports system reviewed and no additional complaints, except as documented Physical Exam General General appearance: alert Comment: ill appearing Head Head exam: atraumatic and normocephalic Eye Eye exam: Present normal appearance ENT ENT exam: Present mucous membranes moist Expanded ENT Exam External ear exam: Present normal external inspection TM/Canal exam: Right TM: bulging and effusion (clear bubbles) Nasal speculum exam: Bilateral: other (clear drainage; edematous mucosa) Mouth exam: Present normal external inspection Teeth exam: Present normal inspection Throat exam: Present normal inspection Neck Neck exam: Present normal inspection; Absent lymphadenopathy Chest Chest inspection: Present normal inspection and symmetric chest wall rise Respiratory Respiratory exam: Present normal lung sounds bilaterally Cardiovascular Cardiovascular exam: Present normal rhythm, tachycardia and normal heart sounds Abdominal Exam Abdominal exam: Present soft and normal bowel sounds Extremities Exam Extremities exam: Present normal inspection Back Exam Back exam: Present normal inspection Neurological Exam Neurological exam: Present alert and oriented X3 Psychiatric Psychiatric exam: Present normal affect and normal mood Skin Skin exam: Present warm and dry Lymphatic Lymphatic Findings: no adenopathy Medical Decision Making Luis Antonio Inquiry Pt receiving controlled substance: No Luis Antonio was queried for this patient: No
[2024-03-01 09:12] LABS: UTC Strep Screen (Rapid) Positive (Negative)
[2024-03-01 09:13] VITALS: BP 125/76; PULSE 90; RESP 22; TEMP 37.6; O2SAT 96
[2024-03-01 09:43] LABS: Adenovirus,PCR Not Detected (NotDetected); Bordetella Pertussis Not Detected (NotDetected); Chlamydophila Pneumoniae, PCR Not Detected (NotDetected); Coronavirus 229E Not Detected (NotDetected); Coronavirus NL63 Not Detected (NotDetected); Coronavirus OC43 Not Detected (NotDetected); Coronovirus HKU1,PCR Not Detected (NotDetected); Human Metapneumovirus Not Detected (NotDetected); Influenza A, PCR Not Detected (NotDetected); Influenza AH1, 2009 Not Detected (NotDetected); Influenza AH1, PCR Not Detected (NotDetected); Influenza AH3,PCR Not Detected (NotDetected); Influenza B, PCR Not Detected (NotDetected); Mycoplasma Pneumoniae, PCR Not Detected (NotDetected); Parainfluenza 1, PCR Not Detected (NotDetected); Parainfluenza 2, PCR Not Detected (NotDetected); Parainfluenza 3, PCR Not Detected (NotDetected); Parainfluenza 4, PCR Not Detected (NotDetected); Respiratory Syncytial Virus Not Detected (NotDetected); Rhinovirus/Enterovirus Not Detected (NotDetected)
[2024-03-01 11:48] LABS: Coronavirus 19, PCR Detected (NotDetected)
--- NOTE | 2024-03-01 11:55 | PC.NURSE ---
PATIENT NOTIFIED OF POSITIVE COVID TEST AT THIS TIME
== END 2024-03-01 09:16 | disposition home or self-care (01) ==
PROVIDERS: Emergency Provider Nurse Practitioner Family; PCP Pediatrics
DX: U07.1 COVID-19 (principal); J02.0 Streptococcal pharyngitis; R51.9 Headache, unspecified; R05.9 Cough, unspecified; R11.0 Nausea
CPT/HCPCS: 87581; 87632; 87635; 87798; 87880; 99212; 99214; G0463

== ENCOUNTER 2024-08-25 14:57 | Emergency (ER) | payer OTHER, SELFPAY ==
[2024-08-25 14:59] VITALS: BP 156/70; PULSE 72; RESP 18; TEMP 36.8; O2SAT 99; BMI 48.0
--- NOTE | 2024-08-25 15:05 | PC.NURSE ---
DR MOSQUERA AT BEDSIDE
--- NOTE | 2024-08-25 15:09 | HMH.EDGENADL ---
Discharge Plan Disposition Patient Disposition: Home, Self-Care Condition: Good Prescriptions Prescriptions: New amoxicillin-pot clavulanate 875-125 mg tablet 1 tab PO BID Qty: 20 0RF No Action paroxetine HCl 30 mg tablet 30 mg PO DAILY losartan 25 mg tablet 25 mg PO DAILY lisinopril 5 mg tablet 5 mg PO DAILY etonogestrel-ethinyl estradiol [EluRyng] 0.12-0.015 mg/24 hr ring 1 vag ring VAGINAL ONCE Patient Comments: INSERT 1 RING VAGINALLY EVERY [address] FOR 3 WEEKS OF A 4 WEEK CYCLE cefdinir 300 mg capsule 300 mg PO Q12H 10 Days Qty: 20 0RF [id number]-[id number]-[id number] [Bromfed DM] 2-30-10 mg/5 mL syrup 10 ml PO Q4-6H PRN (Reason: cough/sinus symptoms) Qty: 200 0RF Referrals Follow up/Referrals: Provider,Referral, MD [Referring] - See instructions Activity Restrictions/Add. Instructions Additional Instructions/Restrictions: You were evaluated in the emergency department today. Dog bites are very high risk for infection, so we loosely closed the wounds with sutures. Expect that they will continue draining clear to blood-tinged fluid. Monitor for any redness, warmth, or pus draining from the wounds. Return to the emergency department if you have any new concerns. Keep your wounds clean and dry. Do not submerge under any water. It is okay to wash in the shower, just pat dry with a clean cloth. You may use antibiotic ointment to help keep the area moist and prevent infection. Take Tylenol and ibuprofen every 4-6 hours as needed for pain. Follow-up closely with primary care for wound check. 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 Clinical Impressions Clinical Impression: Dog bite of face Stand Alone Forms Stand Alone Forms: Work/School Release Instructions Patient Instructions: Animal Bites, DI for Laceration Repair -- Complex Suture Print Language Print Language: Somali Discharge ED Provider: Angelica Matamoros General Adult HPI General Chief complaint: Animal Bite Stated complaint: AO 12- BITE BY DOG Time Seen by Provider: 08/25/24 15:02 History of Present Illness HPI narrative: This patient is a 33-year-old female with a history of obesity, hypertension, and anxiety presenting to the emergency department for evaluation with concern for a dog bite to the left side of the face. Patient states that it was her sister's dog who is a large breed mix. Dog is up-to-date on vaccinations. Patient is unsure when her last tetanus shot was but she does not think it was within the last 5 years. This happened just prior to arrival. She states that it was unintentional with the dog jumping up in an excited manner and catching her with her teeth. No other injuries noted. Related Data Home Medications ?Medication ?Instructions ?Recorded ?Confirmed etonogestrel 0.12 mg-ethinyl 1 vag ring vaginal ONCE 03/01/24 03/01/24 estradiol 0.015 mg/24 hr vaginal ring (Lj) lisinopril 5 mg tablet 5 mg PO DAILY 03/01/24 03/01/24 losartan 25 mg tablet 25 mg PO DAILY 03/01/24 03/01/24 paroxetine HCl 30 mg tablet 30 mg PO DAILY 03/01/24 03/01/24 Previous Rx's ?Medication ?Instructions ?Recorded [id number]-[id number]-GL 10 ml PO Q4-6H PRN cough/sinus 03/01/24 2 mg-30 mg-10 mg/5 mL oral syrup symptoms #200 mL (Bromfed DM) cefdinir 300 mg capsule 300 mg PO Q12H 10 days #20 caps 03/01/24 amoxicillin 875 mg-potassium 1 tab PO BID #20 tabs 08/25/24 clavulanate 125 mg tablet Allergies Allergy/AdvReac Type Severity Reaction Status Date / Time codeine Allergy Mild nauseated Verified 12/12/23 10:16 nut - unspecified Allergy Verified 12/12/23 10:16 [facility] Disclaimer: The information contained in this section may have been updated after the patient was seen, as this information can be updated by other users. Medical History Hypertension Menorrhagia Dysmenorrhea History of anemia Depression Anxiety Surgical History History of wisdom tooth extraction Family History Other No significant family history Social History Smoking Status: Never smoker second hand exposure: No alcohol intake: never substance use type: denies use current occupational status: employed Travel in the last 8 weeks: None housing: house current occupational exposures/hazards: No Have you lived/traveled outside [place] in past 30 days?: No Contact w/someone who lives/traveled outside [place] past 30 days?: No Exposure to someone with infectious disease in past 14 days?: No Do you have a fever (greater than 100.4 F or 38 C)?: No Have you tested positive for COVID-19: No Exposed to someone with COVID-19 in past 14 days?: No Do you have a sore throat?: No Do you have a cough?: No Do you have any weakness?: No Do you have any diarrhea?: No Are you experiencing any unusual bleeding?: No Do you have any muscle aches/pain?: No Do you have any abdominal pain?: No Are you experiencing loss of taste or smell?: No Other Medical History Have you received the Pneumonia Vaccine: No ROS Obtained: Yes All systems reviewed & no additional complaints except as documented Physical Exam General General appearance: alert and in no apparent distress Head Head exam: normocephalic Expanded Head Exam Head image: 1. 1cm laceration, skin thickness, no foreign body 2. 2 cm laceration, skin thickness, no foreign body 3. superficial 1cm laceration/abrasion Eye Eye exam: Present normal appearance, PERRL and EOMI ENT ENT exam: Present normal exam, normal oropharynx, mucous membranes moist and normal external ear exam Neck Neck exam: Present normal inspection, full ROM, trachea midline and other (No bruit, no hematoma, no significant swelling, no palpable thrill. Good pulses. No significant soft tissue swelling); Absent tenderness Chest Chest inspection: Present normal inspection and symmetric chest wall rise; Absent tenderness Respiratory Respiratory exam: Present normal lung sounds bilaterally; Absent respiratory distress, wheezes, stridor or accessory muscle use Cardiovascular Cardiovascular exam: Present regular rate and normal rhythm Abdominal Exam Abdominal exam: Present soft; Absent distention, tenderness or guarding Extremities Exam Extremities exam: Present normal inspection, full ROM and normal capillary refill; Absent tenderness or edema Back Exam Back exam: Present normal inspection and full ROM; Absent tenderness Neurological Exam Neurological exam: Present alert, oriented X3, CN II-XII intact and normal gait; Absent motor sensory deficit Psychiatric Psychiatric exam: Present normal affect and normal mood Skin Skin exam: Present warm and dry Medical Decision Making Medical Records Medical records reviewed: Yes I reviewed the patient's medical records. Screening: Per USPSTF and CDC recommendations, given the prevalence of disease in our region, it is our hospital?s policy to screen for HIV and viral Hepatitis for all patients aged 18 and over and those with ongoing risk factors. Luis Antonio Inquiry Pt receiving controlled substance: No Vital Signs: 08/25/24 14:59 08/25/24 15:31 08/25/24 16:01 Temperature 98.2 F Temperature Source Oral Pulse Rate 63 66 Pulse Rate [Radial] 72 Respiratory Rate 18 Blood Pressure 153/87 H 118/63 Blood Pressure [Right Arm] 156/70 H Blood Pressure Mean [Right Arm] 98 Blood Pressure Source [Right Arm] Automatic Cuff Blood Pressure Position [Right Arm] Sitting 02 Sat by Pulse Oximetry 99 100 100 Oxygen Delivery Method Room Air Room Air Room Air Lab Data Lab results reviewed: Yes I reviewed the patient's lab results. Orders (Tests/Meds): ED MEDICATIONS Discontinued Medications Generic Name Dose Route Start Last Admin Trade Name Freq PRN Reason Stop Dose Admin Acetaminophen 1,000 mg 08/25/24 15:07 08/25/24 15:17 Acetaminophen 500mg Tab PO 08/25/24 15:08 1,000 mg ONCE ONE Administration Amoxicillin/Clavulanate Potassium 1 each 08/25/24 15:07 08/25/24 15:19 Amoxicillin/Clavulanate Potassium 875/125mg Tablet PO 08/25/24 15:08 1 each ONCE ONE Administration Bacitracin 1 gm 08/25/24 16:07 08/25/24 16:13 Bacitracin Zinc Oint 30gm Tube TP 08/25/24 16:08 1 dose ONCE ONE Administration Ibuprofen 800 mg 08/25/24 15:07 08/25/24 15:17 Ibuprofen 400 Mg Tablet PO 08/25/24 15:08 800 mg ONCE ONE Administration Lidocaine/Epinephrine 20 ml 08/25/24 15:07 08/25/24 15:19 Lidocaine 1% W/Epi 1:100,000 20ml Vial IJ 08/25/24 15:08 20 ml ONCE ONE Administration Ondansetron HCl 4 mg 08/25/24 15:07 08/25/24 15:16 Ondansetron 4mg Odt SL 08/25/24 15:08 4 mg ONCE ONE Administration Tetanus/Reduced Diphtheria/Acell Pertussis 0.5 ml 08/25/24 15:07 08/25/24 15:17 Tet/Diphth/Pert-Adult 0.5ml Syringe IM 08/25/24 15:08 0.5 ml .ONCE ONE Administration Medical Decision Narrative: In summary, this patient is a 33-year-old female presenting to the Emergency Department for evaluation of dog bite to the face. Differential diagnoses considered include but are not limited to laceration, abrasion, foreign body, open fracture. Ruling out the most morbid conditions drove assessment. It should be noted patient's history includes obesity, hypertension which may or may not be at goal therapy. This complicates all aspects of care by increasing patient's risk for morbidity. On exam, the patient is sitting upright in no acute distress. She has superficial lacerations to her face as detailed in physical exam. No significant neck swelling, hematoma, bruit, or other concern. She is neurologically intact. 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 She states that she feels okay and does not think that there is any deep injury. She was given oral Tylenol, ibuprofen, Zofran, Augmentin, and Tdap booster. She is agreeable for loose approximation of the larger wounds. I do not feel that wound #3 labeled on physical exam requires repair, as it is very superficial and already well-approximated. Wounds were copiously irrigated with Betadine and saline and anesthetic was applied with lidocaine with epinephrine. Larger lacerations were loosely approximated. Patient tolerated this very well without complication. Please see procedure notes for further documentation. At this time, she is deemed to be appropriate for discharge. Her wounds were covered with bacitracin prior to discharge and she was given very strict return precautions and instructions for supportive management. She was given prescription for Augmentin. She was discharged after all questions were answered. Procedures Laceration Laceration 1: Site: face Side (If applicable): left Size (cm): 2 Description: linear Depth: simple, single layer Local Anesthetic: lidocaine 1% and with epi Amount of anesthesia used (mL): 5 Pre-repair: wound explored, irrigated extensively and deep structures intact Skin layer closed with: nylon Size (cm): 5-0 Number of sutures: 3 Technique: simple, interrupted Laceration 2: Site: face Side (If applicable): left Size (cm): 1 Description: linear Depth: simple, single layer Local Anesthetic: lidocaine 1% and with epi Amount of anesthesia used (mL): 3 Pre-repair: wound explored, irrigated extensively and deep structures intact Skin layer closed with: nylon Size (cm): 5-0 Number of sutures: 1 Technique: simple, interrupted Critical Care Critical Care Time Critical Care Time: No
[2024-08-25] MEDS: ONDANSETRON 4MG ODT 4 MG SL (15:16)
[2024-08-25] MEDS: TET/DIPHTH/PERT-ADULT 0.5ML SYRINGE 0.5 ML IM (15:17)
[2024-08-25] MEDS: ACETAMINOPHEN 500MG TAB 1000 MG PO (15:17)
[2024-08-25] MEDS: IBUPROFEN 400 MG TABLET 800 MG PO (15:17)
[2024-08-25] MEDS: AMOXICILLIN/CLAVULANATE POTASSIUM 875/125MG TABLET 1 EACH PO (15:19)
[2024-08-25] MEDS: LIDOCAINE 1% W/EPI 1:100,000 20ML VIAL 20 ML IJ (15:19)
[2024-08-25 15:31] VITALS: BP 153/87; PULSE 63; O2SAT 100
[2024-08-25 16:01] VITALS: BP 118/63; PULSE 66; O2SAT 100
[2024-08-25] MEDS: BACITRACIN ZINC OINT 30GM TUBE TP (16:13)
[2024-08-25 16:21] VITALS: BP 118/63; PULSE 60; RESP 18; TEMP 36.8; O2SAT 99
== END 2024-08-25 16:22 | disposition home or self-care (01) ==
PROVIDERS: Emergency Provider Emergency Medicine; PCP Pediatrics
DX: S01.85XA Open bite of other part of head, initial encounter (principal); G50.1 Atypical facial pain; Z23 Encounter for immunization; W54.0XXA Bitten by dog, initial encounter; Y93.89 Activity, other specified
CPT/HCPCS: 90471; 90715; 99283; Q0162

== ENCOUNTER 2024-12-15 12:38 | Outpatient (CLI) | payer OTHER, SELFPAY ==
--- OUTSIDE RECORDS SUMMARY | 2024-12-15 12:40 | XMS_ITS | Data Portability ---
Author Organization [facility] & JASON Decker ADMIN Address [address] [place] [id number] Care Team Providers Care Account Executive Key Accounts Name Role Phone JADIEL HUYNH Primary Care Provider [phone] Assessment Encounter Date Assessment Date Assessment LastModified by Organization Details LastModified Time 11/19/2023 11/19/2023 A total of 30 minutes was spent on this patient's visit including review of available labs/imaging, review of patient records, conducting a physical exam, preparing a treatment plan, and discussing the treatment plan, risks, and benefits with patient today. [email or web address] Not available 11/20/2023 19:21:04 Plan of Treatment Reminders Order Date Submit Date Provider Last Modified By Organization Details Last Modified Time Details Appointments None recorded. Lab CBC w/ auto diff 2023 024 [facility], [address], [address], [place], [address], 4 06:38:33 TSH + free T4, serum 2023 024 [facility], [address], [address], [place], [address], 4 06:38:32 vitamin D, 25-hydroxy , total, serum 2023 024 [facility], [address], [address], [place], [address], 4 06:38:37 lipid panel, serum 2023 024 [facility], [address], [address], [place], [address], 4 06:38:35 CMP, serum or plasma 2023 024 [facility], [address], [address], [place], [address], 4 06:38:34 HbA1c (hemoglobi n A1c), blood 2023 024 [facility], [address], [address], [place], [address], 4 06:38:36 urinalysis , dipstick 2023 024 [facility], [address], [address], [place], [address], 4 11:18:39 culture, urine [address] [facility], [address], [address], [place], [address], 4 06:37:52 urinalysis , complete [address] [facility], [address], [address], [place], [address], 4 06:37:51 Referral otolaryngo logist referral 2023 024 [facility], [address] , [place], [address], 4 11:30:16 Procedures None recorded. Surgeries None recorded. Imaging None recorded. Medication Orders losartan 25 mg tablet 2023 024 [facility], [address], [address], 4 21:53:06 lisinopril 5 mg tablet 2023 024 [facility], [address] [place], [address], 4 21:54:31 paroxetine 30 mg tablet 2023 024 [facility], [address] [place], [address], 4 11:18:46 buspirone 5 mg tablet 2023 024 [facility], [address] [place], [address], 4 11:18:47 azithromyc in 250 mg tablet 2023 024 [facility], [address] [place], [address], 4 11:07:09 benzonatat e 200 mg capsule 2023 024 [facility], [address] [place], [address], 4 11:07:15 albuterol sulfate HFA 90 mcg/actuat ion aerosol inhaler 2023 024 [facility], [address] [place], [address], 4 11:56:50 Patient TargetsNo targets recorded. Patient InstructionsNo instructions recorded. 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 5 Not Available [facility] ([facility]) [address] [facility], [place], [address], 11/21/2023 06:37:50 11/19/19 24 11/20/2023 URINA LYSIS , COMPL ETE urine-color YELLOW yellow Not Available [facility]) [address] [facility], [place], [address], 11/21/2023 06:37:50 11/19/19 24 11/20/2023 URINA LYSIS , COMPL ETE appearance CLEAR clear Not Available [facility] ([facility]) [address] [facility], [place], [address], 11/21/2023 06:37:50 11/19/19 24 11/20/2023 URINA LYSIS , COMPL ETE WBC esterase NEGATI VE negati ve Not Available [facility] ([facility]) [address] [place], [address], 11/21/2023 06:37:50 11/19/19 24 11/20/2023 URINA LYSIS , COMPL ETE protein NEGATI VE negati ve/tra ce Not Available [facility] ([facility]) [address] [place], [address], 11/21/2023 06:37:50 11/19/19 24 11/20/2023 URINA LYSIS , COMPL ETE glucose NEGATI VE negati ve Not Available [facility] ([facility]) [address] [place], [address], 11/21/2023 06:37:50 11/19/19 24 11/20/2023 URINA LYSIS , COMPL ETE ketones NEGATI VE negati ve Not Available [facility] ([facility]) [address] [place], [address], 11/21/2023 06:37:50 11/19/19 24 11/20/2023 URINA LYSIS , COMPL ETE occult blood 1+ negati ve abnormal Not Available [facility] ([facility]) [address] [place], [address], 11/21/2023 06:37:50 11/19/19 24 11/20/2023 URINA LYSIS , COMPL ETE bilirubin NEGATI VE negati ve Not Available [facility] ([facility]) [address] [place], [address], 11/21/2023 06:37:50 11/19/19 24 11/20/2023 URINA LYSIS , COMPL ETE urobilinogen ,semi-qn 0.2 mg/dL 0.2-1. 0 Not Available [facility] ([facility]) [address] [place], [address], 11/21/2023 06:37:50 11/19/19 24 11/20/2023 URINA LYSIS , COMPL ETE nitrite, urine NEGATI VE negati ve Not Available [facility] ([facility]) [address] [place], [address], 11/21/2023 06:37:50 11/19/19 24 11/20/2023 URINA LYSIS , COMPL ETE microscopic examination SEE BELOW: Micro scopi c was indic ated and was perfo rmed. Not Available [facility] ([facility]) [address] [place], [address], 11/21/2023 06:37:50 11/19/19 24 11/20/2023 URINA LYSIS , COMPL ETE WBC NONE SEEN /hpf 0 - 5 Not Available [facility] ([facility]) [address], [place], [address], 11/21/2023 06:37:50 11/19/19 24 11/20/2023 URINA LYSIS , COMPL ETE RBC NONE SEEN /hpf 0 - 2 Not Available [facility] ([facility]) [address] [facility], [place], [address], 11/21/2023 06:37:50 11/19/19 24 11/20/2023 URINA LYSIS , COMPL ETE epithelial cells (non renal) 0-10 /hpf 0 - 10 Not Available [facility]) [address] [facility], [place], [address], 11/21/2023 06:37:50 11/19/19 24 11/20/2023 URINA LYSIS , COMPL ETE epithelial cells (renal) WINE MANAGER Not Available [facility] ([facility]) [address] [facility], [place], [address], 11/21/2023 06:37:50 11/19/19 24 11/20/2023 URINA LYSIS , COMPL ETE casts NONE SEEN /lpf none seen Not Available [facility] ([facility]) [address] [facility], [place], [address], 11/21/2023 06:37:50 11/19/19 24 11/20/2023 URINA LYSIS , COMPL ETE cast type WINE MANAGER Not Available [facility] ([facility]) [address] [facility], [place], [address], 11/21/2023 06:37:50 11/19/19 24 11/20/2023 URINA LYSIS , COMPL ETE crystals WINE MANAGER Not Available [facility] ([facility]) [address] [facility], [place], [address], 11/21/2023 06:37:50 11/19/19 24 11/20/2023 URINA LYSIS , COMPL ETE crystal type WINE MANAGER Not Available [facility] [address] [facility], [place], [address], 11/21/2023 06:37:50 11/19/19 24 11/20/2023 URINA LYSIS , COMPL ETE mucus threads WINE MANAGER Not Available [facility]) [address] [facility], [place], [address], 11/21/2023 06:37:50 11/19/19 24 11/20/2023 URINA LYSIS , COMPL ETE bacteria NONE SEEN none seen/f ew Not Available [facility] ([facility]) [address] [facility], [place], [address], 11/21/2023 06:37:50 11/19/19 24 11/20/2023 URINA LYSIS , COMPL ETE yeast WINE MANAGER Not Available [facility] ([facility]) [address] [facility], [place], [address], 11/21/2023 06:37:50 11/19/19 24 11/20/2023 URINA LYSIS , COMPL ETE trichomonas WINE MANAGER Not Available [facility]) [address] [facility], [place], [address], 11/21/2023 06:37:50 11/19/19 24 11/20/2023 URINA LYSIS , COMPL ETE comment WINE MANAGER Not Available [facility] ([facility]) [address] [place], [address], 11/21/2023 06:37:50 11/19/19 24 11/20/2023 URINA LYSIS , COMPL ETE microscopic examination WINE MANAGER Not Available [facility] [address] [place], [address], 11/21/2023 06:37:50 11/19/19 24 11/20/2023 URINE CULTU RE, ROUTI NE urine culture, routine FINAL REPORT Not Available [facility] ([facility]) [address] [facility], [place], [address], 11/21/2023 06:37:52 11/19/19 24 11/20/2023 URINE CULTU RE, ROUTI NE result 1 COMMEN T Mixed uroge nital rasheed 25,00 0-50, 000 colon y formi ng units per mL Not Available [facility] ([facility]) [address] [facility], [place], [address], 11/21/2023 06:37:52 11/19/19 24 11/19/2023 urina lysis , dipst ick Leukocytes (reference range) negati ve Not Available [facility] [address], [place], [address], 11/19/2023 10:46:24 11/19/19 24 11/19/2023 urina lysis , dipst ick Nitrite (reference range:) negati ve Not Available [facility] [address] , [place], [address], 11/19/2023 10:46:24 11/19/19 24 11/19/2023 urina lysis , dipst ick Urobilinogen (reference range) 0.2 Not Available [facility] [address] , [place], [address], 11/19/2023 10:46:24 11/19/19 24 11/19/2023 urina lysis , dipst ick Protein (reference range) negati ve Not Available [facility] [address] , [place], [address], 11/19/2023 10:46:24 11/19/19 24 11/19/2023 urina lysis , dipst ick pH (reference range 5-8.5) 5.5 Not Available [facility] [place] [address], [place], [address], 11/19/2023 10:46:24 11/19/19 24 11/19/2023 urina lysis , dipst ick Blood (reference range:) modera te Not Available [facility] [place] [address], [place], [address], 11/19/2023 10:46:24 11/19/19 24 11/19/2023 urina lysis , dipst ick Specific [place] (reference range) 1.025 Not Available [facility] [address], [place], [address], 11/19/2023 10:46:24 11/19/19 24 11/19/2023 urina lysis , dipst ick Ketone (reference range) negati ve Not Available [facility] [place] [address] [facility] [address], [place], [address], 11/19/2023 10:46:24 11/19/19 24 11/19/2023 urina lysis , dipst ick Bilirubin (reference range) negati ve Not Available [facility] [place], [address], 11/19/2023 10:46:24 11/19/19 24 11/19/2023 urina lysis , dipst ick Glucose (reference range) negati ve Not Available [facility] [address] , [place], [address], 11/19/2023 10:46:24 11/19/19 24 11/19/2023 urina lysis , dipst ick Color (reference range: yellow-brown ) Yellow Not Available [facility] [address], [place], [address], 11/19/2023 10:46:24 12/24/19 24 12/25/2023 TSH+F REE T4 TSH 1.700 uIU/m L 0.450- 4.500 Not Available [facility] ([facility]) [address] [facility], [place], [address], 12/25/2023 06:38:32 12/24/19 24 12/25/2023 TSH+F REE T4 T4,free(dire ct) 1.13 NG/dL 0.82-1 .77 Not Available [facility] ([facility]) [address] [facility], [place], [address], 12/25/2023 06:38:32 12/24/19 24 12/24/2023 CBC WITH DIFFE RENTI AL/PL ATELE T WBC 7.8 x10e3 /uL 3.4-10 .8 Not Available [facility] ([facility]) [address] [place], [address], 12/25/2023 06:38:33 12/24/1912/24/2023 CBC WITH DIFFE RENTI AL/PL ATELE T RBC 4.89 x10e6 /uL 3.77-5 .28 Not Available [facility] ([facility]) [address] [facility], [place], [address], 12/25/2023 06:38:33 12/24/1912/24/2023 CBC WITH DIFFE RENTI AL/PL ATELE T hemoglobin 12.0 g/dL 11.1-1 5.9 Not Available [facility] ([facility]) [address] [place], [address], 12/25/2023 06:38:33 12/24/19 24 12/24/2023 CBC WITH DIFFE RENTI AL/PL ATELE T hematocrit 38.2 % 34.0-4 6.6 Not Available [facility] ([facility]) [address] [facility], [place], [address], 12/25/2023 06:38:33 12/24/1912/24/2023 CBC WITH DIFFE RENTI AL/PL ATELE T MCV 78 fL 79-97 below low normal Not Available [facility] ([facility]) [address] [facility], [place], [address], 12/25/2023 06:38:33 12/24/1912/24/2023 CBC WITH DIFFE RENTI AL/PL ATELE T MCH 24.5 pg 26.6-3 3.0 below low normal Not Available [facility] ([facility]) [address] [facility], [place], [address], 12/25/2023 06:38:33 12/24/1912/24/2023 CBC WITH DIFFE RENTI AL/PL ATELE T MCHC 31.4 g/dL 31.5-3 5.7 below low normal Not Available [facility] ([facility]) [address] [facility], [place], [address], 12/25/2023 06:38:33 12/24/19 24 12/24/2023 CBC WITH DIFFE RENTI AL/PL ATELE T RDW 14.4 % 11.7-1 5.4 Not Available [facility] ([facility]) [address] [facility], [place], [address], 12/25/2023 06:38:33 12/24/1912/24/2023 CBC WITH DIFFE RENTI AL/PL ATELE T platelets 291 x10e3 /uL 150-45 0 Not Available [facility] ([facility]) [address] [facility], [place], [address], 12/25/2023 06:38:33 12/24/19 24 12/24/2023 CBC WITH DIFFE RENTI AL/PL ATELE T neutrophils 72 % not estab. Not Available [facility] ([facility]) [address] [facility], [place], [address], 12/25/2023 06:38:33 12/24/19 24 12/24/2023 CBC WITH DIFFE RENTI AL/PL ATELE T lymphs 23 % not estab. Not Available [facility] ([facility]) [address] [facility], [place], [address], 12/25/2023 06:38:33 12/24/19 24 12/24/2023 CBC WITH DIFFE RENTI AL/PL ATELE T monocytes 5 % not estab. Not Available [facility] ([facility]) [address] [facility], [place], [address], 12/25/2023 06:38:33 12/24/19 24 12/24/2023 CBC WITH DIFFE RENTI AL/PL ATELE T eos 0 % not estab. Not Available [facility] ([facility]) [address] [facility], [place], [address], 12/25/2023 06:38:33 12/24/19 24 12/24/2023 CBC WITH DIFFE RENTI AL/PL ATELE T basos 0 % not estab. Not Available [facility] ([facility]) [address] [facility], [place], [address], 12/25/2023 06:38:33 12/24/1912/24/2023 CBC WITH DIFFE RENTI AL/PL ATELE T immature cells WINE MANAGER Not Available [facility] ([facility]) [address] [facility], [place], [address], 12/25/2023 06:38:33 12/24/1912/24/2023 CBC WITH DIFFE RENTI AL/PL ATELE T neutrophils (absolute) 5.5 x10e3 /uL 1.4-7. 0 Not Available [facility] ([facility]) [address] [facility], [place], [address], 12/25/2023 06:38:33 12/24/19 24 12/24/2023 CBC WITH DIFFE RENTI AL/PL ATELE T lymphs (absolute) 1.8 x10e3 /uL 0.7-3. 1 Not Available [facility] ([facility]) [address] [facility], [place], [address], 12/25/2023 06:38:33 12/24/1912/24/2023 CBC WITH DIFFE RENTI AL/PL ATELE T monocytes(ab solute) 0.4 x10e3 /uL 0.1-0. 9 Not Available [facility] ([facility]) [address] [facility], [place], [address], 12/25/2023 06:38:33 12/24/19 24 12/24/2023 CBC WITH DIFFE RENTI AL/PL ATELE T eos (absolute) 0.0 x10e3 /uL 0.0-0. 4 Not Available [facility] ([facility]) [address] [facility], [place], [address], 12/25/2023 06:38:33 12/24/19 24 12/24/2023 CBC WITH DIFFE RENTI AL/PL ATELE T baso (absolute) 0.0 x10e3 /uL 0.0-0. 2 Not Available [facility] ([facility]) [address] [facility], [place], [address], 12/25/2023 06:38:33 12/24/19 24 12/24/2023 CBC WITH DIFFE RENTI AL/PL ATELE T immature granulocytes 0 % not estab. Not Available [facility] ([facility]) [address] [facility], [place], [address], 12/25/2023 06:38:33 12/24/19 24 12/24/2023 CBC WITH DIFFE RENTI AL/PL ATELE T immature grans (abs) 0.0 x10e3 /uL 0.0-0. 1 Not Available [facility] ([facility]) [address] [facility], [place], [address], 12/25/2023 06:38:33 12/24/19 24 12/24/2023 CBC WITH DIFFE RENTI AL/PL ATELE T NRBC WINE MANAGER Not Available [facility] ([facility]) [address], [place], [address], 12/25/2023 06:38:33 12/24/19 24 12/24/2023 CBC WITH DIFFE RENTI AL/PL ATELE T hematology comments: WINE MANAGER Not Available [facility]) [address] [facility], [place], [address], 12/25/2023 06:38:33 12/24/19 24 12/25/2023 COMP. METAB OLIC PANEL (14) glucose 86 mg/dL 70-99 Not Available [facility] ([facility]) [address] [facility], [place], [address], 12/25/2023 06:38:34 12/24/19 24 12/25/2023 COMP. METAB OLIC PANEL (14) BUN 14 mg/dL 6-20 Not Available [facility] ([facility]) [address] [facility], [place], [address], 12/25/2023 06:38:34 12/24/19 24 12/25/2023 COMP. METAB OLIC PANEL (14) creatinine 0.73 mg/dL 0.57-1 .00 Not Available [facility] ([facility]) [address] [facility], [place], [address], 12/25/2023 06:38:34 12/24/19 24 12/25/2023 COMP. METAB OLIC PANEL (14) BUN/creatini ne ratio 19 9-23 Not Available [facility]) [address] [facility], [place], [address], 12/25/2023 06:38:34 12/24/19 24 12/25/2023 COMP. METAB OLIC PANEL (14) sodium 139 mmol/ L 134-14 4 Not Available [facility] ([facility]) [address] [facility] [place], [address], 12/25/2023 06:38:34 12/24/19 24 12/25/2023 COMP. METAB OLIC PANEL (14) potassium 4.4 mmol/ L 3.5-5. 2 Not Available [facility] ([facility]) [address] [facility] [place], [address], 12/25/2023 06:38:34 12/24/19 24 12/25/2023 COMP. METAB OLIC PANEL (14) chloride 105 mmol/ L 96-106 Not Available [facility] ([facility]) [address] [facility] [place], [address], 12/25/2023 06:38:34 12/24/19 24 12/25/2023 COMP. METAB OLIC PANEL (14) carbon dioxide, total 20 mmol/ L 20-29 Not Available [facility] ([facility]) [address] [facility] [place], [address], 12/25/2023 06:38:34 12/24/19 24 12/25/2023 COMP. METAB OLIC PANEL (14) calcium 8.7 mg/dL 8.7-10 .2 Not Available [facility] ([facility]) [address] [facility] [place], [address], 12/25/2023 06:38:34 12/24/19 24 12/25/2023 COMP. METAB OLIC PANEL (14) protein, total 6.5 g/dL 6.0-8. 5 Not Available [facility] ([facility]) [address] [facility] [place], [address], 12/25/2023 06:38:34 12/24/19 24 12/25/2023 COMP. METAB OLIC PANEL (14) albumin 4.0 g/dL 3.9-4. 9 Not Available [facility] ([facility]) [address] [facility] [place], [address], 12/25/2023 06:38:34 12/24/19 24 12/25/2023 COMP. METAB OLIC PANEL (14) globulin, total 2.5 g/dL 1.5-4. 5 Not Available [facility] ([facility]) [address] [facility] [place], [address], 12/25/2023 06:38:34 12/24/19 24 12/25/2023 COMP. METAB OLIC PANEL (14) A/G ratio 1.6 1.2-2. 2 Not Available [facility] ([facility]) [address] [place], [address], 12/25/2023 06:38:34 12/24/19 24 12/25/2023 COMP. METAB OLIC PANEL (14) bilirubin, total 0.4 mg/dL 0.0-1. 2 Not Available [facility] ([facility]) [address] [place], [address], 12/25/2023 06:38:34 12/24/19 24 12/25/2023 COMP. METAB OLIC PANEL (14) alkaline phosphatase 87 IU/L 44-121 Not Available [facility]) [address] [place], [address], 12/25/2023 06:38:34 12/24/19 24 12/25/2023 COMP. METAB OLIC PANEL (14) AST (SGOT) 13 IU/L 0-40 Not Available [facility] ([facility]) [address] [place], [address], 12/25/2023 06:38:34 12/24/19 24 12/25/2023 COMP. METAB OLIC PANEL (14) ALT (SGPT) 15 IU/L 0-32 Not Available [facility] ([facility]) [address] [place], [address], 12/25/2023 06:38:34 12/24/19 24 12/25/2023 LIPID PANEL cholesterol, total 166 mg/dL 100-19 9 Not Available [facility] ([facility]) [address] [place], [address], 12/25/2023 06:38:35 12/24/1912/25/2023 LIPID PANEL triglyceride s 85 mg/dL 0-149 Not Available [facility] [address] [place], [address], 12/25/2023 06:38:35 12/24/1912/25/2023 LIPID PANEL HDL cholesterol 56 mg/dL >39 Not Available [facility] [address] [place], [address], 12/25/2023 06:38:35 12/24/19 24 12/25/2023 LIPID PANEL VLDL cholesterol malena 16 mg/dL 5-40 Not Available [facility] [address] [place], [address], 12/25/2023 06:38:35 12/24/1912/25/2023 LIPID PANEL LDL chol calc ([facility]) 94 mg/dL 0-99 Not Available [facility] [address] [place], [address], 12/25/2023 06:38:35 12/24/1912/25/2023 LIPID PANEL comment: WINE MANAGER Not Available [facility] ([facility]) [address] [place], [address], 12/25/2023 06:38:35 12/24/1912/25/2023 HEMOG LOBIN A1C hemoglobin A1C 5.6 % 4.8-5. 6 Predi abete s: 5.7 - 6.4 Diabe lilian: >6.4 Glyce rose contr ol for adult s with diabe lilian: <7.0 Not Available [facility] ([facility]) [address] [facility], [place], [address], 12/25/2023 06:38:36 12/24/19 24 12/25/2023 VITAM IN D, 25-HY DROXY vitamin D, 25-hydroxy 38.3 NG/mL 30.0-1 00.0 Vitam in D defic iency has been defin ed by the Insti tute of Medic ine and an Endoc rine Socie ty pract ice guide line as a level of serum 25-OH vitam in D less than 20 ng/mL (1,2) . The Endoc rine Socie ty went on to furth er defin e vitam in D insuf ficie ncy as a level betwe en 21 and 29 ng/mL (2). 1. IOM (Inst itute of Medic ine). 2010. Ana María ry refer ence brian es for calci um and D. Natalia he [place]: The Natio nal [facility] Press . 2. Reza lozada MF, Cadence vivar [place], Kasia off-F errar i EDWARD, et al. Evalu ation , treat ment, and preve ntion of vitam in D defic iency : an Endoc rine Socie ty clini malena pract ice guide line. JCEM. 2010; 96(7) :1911 -30. Not Available [facility] ([facility]) [address] [facility], [place], [address], 12/25/2023 06:38:37 09/14/19 24 09/14/2023 XR, chest No observ ation record ed. [facility] [address], [place], [address], 09/15/2023 09:38:22 03/09/20 24 03/09/2024 audio gram No observ ation record ed. [email or web address] Not Available 2023 10:40:10 Result Notes None recorded. Problems Name Problem SNOMED Code Status Onset Date Resolution Date Notes Provider Name and Address Organization Details Recorded Time Mixed anxiety and depressive disorder 232143553 Active 2022 Jadiel Huynh MD [address], [place], [id number] [place] [address] & [place] 3 12:24:54 Essential hypertensi on 76431317 Active 2023 Jadiel Huynh MD [address], [address] & [place] 4 17:37:34 Bilateral tinnitus 2925716987434 Active 2023 Jadiel Huynh MD [address], [address] & [place] 4 21:58:23 Bilateral subjective tinnitus of ears 2420935285773 104 Active 2023 JOHN PAUL HERRON [address], [address] & [place] 4 10:33:11 Problem Notes None recorded. Procedures Surgical History Date Name Laterality Status Provider Name and Address Organization Details Recorded Time 2017 esophagogastroduodenoscopy completed Phil Price [facility] & [place] 4 13:29:19 2017 Colonoscopy completed Tammy Price [facility] 4 13:29:31 extraction of wisdom tooth completed Justus Turner [facility] & [place] 3 20:38:14 Imaging Results Imaging Date Name Status LastModified by Organiz ation Details LastModified Time 09/14/2023 XR, chest completed [facility] [address], [place], [address], 09/15/2023 09:38:22 03/09/2024 audiogram completed [email or web address] Information no t available 03/09/2024 10:40:10 Procedure Notes None recorded. Medical Equipment None Reported. Allergies Allergen ID Allergen Name Allergen Category Reaction Reaction Severity Criticality Documentation Date Start Date Code Code System Note Provider Name and Address Organization Details Recorded Time 047157 nut - unspecifi ed food anaphylax is anaphylax is moderate moderate Not available 08/12/2023 76660 UNK Justus cottrell, [facility] & [place] 3 20:33:24 [id number] lisinopri l medicatio n cough Not available Not available 02/24/2024 77116 RxNorm Jadiel Huynh MD [address], [place], [address], [facility] - [facility] & [place] 4 15:15:16 74047 codeine medicatio n nausea other Not available Not available Not available 05/27/2023 2670 RxNorm GI intol eranc e Justus cottrell, [place] - [facility] & [place] 3 20:37:27 79424 peanut allergeni c extract food,medi cation Not available Not available Not available 05/27/2023 60574 8 RxNorm Jadiel Huynh MD [address] , [place], [address], [facility] & [place] 3 12:15:55 Medications Name Sig Start Date Stop Date Status Note LastModified by Organization Details LastModified Time mucus er 600mg tab TAKE 2 TABLETS BY MOUTH TWICE DAILY NEEDED FOR COUGH 08/22 completed Not Available Not Available Not Available amoxicillin 500 mg capsule TAKE 1 CAPSULE BY MOUTH THREE TIMES DAILY 05/27 completed Not Available Not Available Not Available buspirone 5 mg tablet Take 1 tablet twice a day by oral route as needed for 30 days. 2023 active Not Available Not Available Not Avai lable promethazin e-DM 6.25 mg-15 mg/5 mL oral syrup 09/24 completed Not Available Not Available Not Available prednisone 10 mg tablet TAKE 4 TABLETS BY MOUTH ONCE DAILY FOR 3 DAYS THEN 2 TABS ONCE DAILY FOR 3 DAYS THEN 1 TAB ONCE DAILY FOR 3 DAYS THEN STOP 09/24 completed Not Available Not Available Not Available azithromyci n 250 mg tablet TAKE 2 TABLETS BY MOUTH ON DAY 1, AND THEN TAKE 1 TABLET BY MOUTH ONCE A DAY ON DAY 2 THROUGH DAY 5 11/18 completed Not Available Not Available Not Available benzonatate 200 mg capsule TAKE 1 CAPSULE BY MOUTH EVERY 8 HOURS NEEDED 11/18 completed Not Available Not Available Not Available hydrocodone 5 mg-acetamin ophen 325 mg tablet TAKE 1 TABLET BY MOUTH EVERY 6 HOURS NEEDED FOR PAIN 08/22 completed Not Available Not Available Not Available promethazin e 12.5 mg tablet TAKE 1 TABLET BY MOUTH EVERY 6 HOURS NEEDED FOR NAUSEA AND VOMITING FOR 7 DAYS active Not Available Not Available No t Available phenazopyri dine 200 mg tablet TAKE 1 TABLET BY MOUTH EVERY 8 HOURS FOR PAIN FOR 2 DAYS 05/27 completed Not Available Not Available Not Available prednisone 20 mg tablet TAKE 2 TABLETS BY MOUTH ONCE DAILY FOR 3 DAYS 09/24 completed Not Available Not Available Not Available acetaminoph en 300 mg-codeine 30 mg tablet TAKE 1 TABLET BY MOUTH EVERY 6 HOURS 05/27 completed Not Available Not Available Not Available ketorolac 10 mg tablet TAKE 1 TABLET BY MOUTH EVERY 6 HOURS NEEDED FOR MILD PAIN active Not Available Not Available No t Available benzonatate 100 mg capsule TAKE 1 CAPSULE BY MOUTH THREE TIMES DAILY NEEDED FOR COUGH 11/18 completed Not Available Not Available Not Available paroxetine 30 mg tablet TAKE 1 TABLET BY MOUTH ONCE DAILY active Not Available Not Available No t Available paroxetine 20 mg tablet TAKE 1 TABLET BY MOUTH ONCE DAILY 08/22 completed Not Available Not Available Not Available polymyxin B sulfate 10,000 unit-trimet hoprim 1 mg/mL eye drops INSTILL 1 DROP INTO THE EYE(S) EVERY 3 HOURS FOR 7 DAYS WHILE AWAKE, DO NOT EXCEED 6 DOSES IN 24 HOURS 09/24 completed Not Available Not Available Not Available losartan 25 mg tablet TAKE 1 TABLET BY MOUTH ONCE DAILY active Not Available Not Available No t Available lisinopril 5 mg tablet Take 1 tablet every day by oral route for 30 days. 02/23 completed Not Available Not Available Not Available methylpredn isolone 4 mg tablets in a dose pack TAKE BY MOUTH DIRECTED ON INSIDE OF PACKAGE 09/24 completed Not Available Not Available Not Available albuterol sulfate HFA 90 mcg/actuati on aerosol inhaler Inhale 2 puffs every 6 hours by inhalatio n route as needed. 2023 active Not Available Not Available Not Avai lable bromphenira mine-pseudo ephedrine-D M 2 mg-30 mg-10 mg/5 mL oral syrup TAKE 10 ML BY MOUTH EVERY 4 TO 6 HOURS NEEDED FOR COUGH AND SINUS SYMPTOMS active Not Available Not Available No t Available ondansetron 4 mg disintegrat ing tablet DISSOLVE 1 TABLET IN MOUTH EVERY 8 HOURS NEEDED FOR NAUSEA AND VOMITING 08/22 completed Not Available Not Available Not Available cefdinir 300 mg capsule TAKE 1 CAPSULE BY MOUTH EVERY 12 HOURS FOR 10 DAYS active Not Available Not Available No t Available amoxicillin 875 mg-potassiu m clavulanate 125 mg tablet TAKE 1 TABLET BY MOUTH TWICE DAILY active Not Available Not Available No t Available nitrofurant oin monohydrate /macrocryst als 100 mg capsule TAKE 1 CAPSULE BY MOUTH EVERY 12 HOURS FOR 5 DAYS MUST ADMINISTE R WITH A MEAL/FOOD 05/27 completed Not Available Not Available Not Available Escobar 24 Fe 1 mg-20 mcg (24)/75 mg (4) tablet TAKE 1 TABLET BY MOUTH ONCE DAILY active Not Available Not Available No t Available EluRyng 0.12 mg-0.015 mg/24 hr vaginal ring INSERT 1 RING VAGINALLY EVERY [address] FOR 3 WEEKS OF A 4 WEEK CYCLE 12/23 completed Not Available Not Available Not Available Voltaren Arthritis Pain 1 % topical gel APPLY 2 GRAMS TO THE AFFECTED AREA(S) BY TOPICAL ROUTE 4 TIMES PER DAY active Not Available Not Available No t Available Vitals Date Recorded Body height Body mass index (BMI) Body weight Body temperature Heart rate Systolic blood pressure Diastolic blood pressure Provider Name and Address Organization Details Last Updated DateTime 4 162.56 cm 48.6 kg/m2 170673. 74 g 97.1 [degF] 56 /min 140 mm[Hg] 87 mm[Hg] Brandi Servin [facility] - [place] & [place] 4 11:38:53 Date Recorded Body height Body mass index (BMI) Body weight Heart rate Systolic blood pressure Diastolic blood pressure Provider Name and Address Organization Details Last Updated DateTime 4 162.56 cm 49.1 kg/m2 595818. 12 g 58 /min 118 mm[Hg] 68 mm[Hg] Brandi CONNELLY [facility] & [place] 4 10:41:15 Date Recorded Body height Body mass index (BMI) Body weight Body temperature Heart rate Systolic blood pressure Diastolic blood pressure Provider Name and Address Organization Details Last Updated DateTime 4 162.56 cm 49.3 kg/m2 924459. 01 g 96.1 [degF] 61 /min 159 mm[Hg] 85 mm[Hg] Brandi CONNELLY [facility] & [place] 4 09:47:15 Date Recorded Body height Body mass index (BMI) Body weight Body temperature Oxygen saturation Oxygen saturation in Arterial blood by Pulse oximetry Heart rate Systolic blood pressure Diastolic blood pressure Provider Name and Address Organization Details Last Updated DateTime 4 162.56 cm 49.6 kg/m2 616340. 19 g 97.8 [degF] 99 % 99 % 56 /min 118 mm[Hg] 70 mm[Hg] Lise Alcala [facility] & [place] 4 14:38:22 Social History Question Answer Notes LastModified by Organizat ion Details LastModified Time Tobacco Smoking Status [facility] [place] 08/12/2023 20:34:10 Do You Have An Advance Directive? No [email or web address] Information not available 08/12/2023 What Is Your Level Of Alcohol Consumption? None [email or web address] Information not available 08/12/2023 Are You Blind Or Do You Have Difficulty Seeing? No [email or web address] Information not available 08/12/2023 What Was The Date Of Your Most Recent Tobacco Screening? 05/26/2023 [email or web address] Information not available 08/12/2023 Are You Passively Exposed To Smoke? No [email or web address] Information no t available 08/12/2023 Do You Or Have You Ever Used Smokeless Tobacco? [id number] [email or web address] Information not available 08/12/2023 How Much Tobacco Do You Smoke? No [email or web address] Information not available 08/12/2023 Do You Feel Stressed (tense, Restless, Nervous, Or Anxious, Or Unable To Sleep At Night)? [id number] [email or web address] Information not available 08/12/2023 Do You Use Any Illicit Or Recreational Drugs? No [email or web address] Information not available 08/12/2023 How Many Years Have You Smoked Tobacco? 0 [email or web address] Information not available 08/12/2023 Sex: Unknown Functional Status Question Answer Note LastModified by Organizat ion Details LastModified Time What is your exercise level? Occasional [email or web address] Information not available 08/12/2023 Mental Status None recorded. Family History Relationship Description Onset Age of this Age Resolved Age Notes LastModified by Organization Details LastModified Time Father Allergy pt. added direct ly (05/26) [email or web address] Not available 05/26/2023 15:38:32 Father Gastroesopha geal reflux disease pt. added direct ly (05/26) [email or web address] Not available 05/26/2023 15:39:15 Father Hypertensive disorder pt. added direct ly (05/26) [email or web address] Not available 05/26/2023 15:40:29 Father Obesity pt. added direct ly (05/26) [email or web address] Not available 05/26/2023 15:41:14 Father Sleep disorder pt. added direct ly (05/26) [email or web address] Not available 05/26/2023 15:41:27 Father Diabetes mellitus [email or web address] Not available 2023 13:28:43 Mother Anemia pt. added direct ly (05/26) [email or web address] Not available 05/26/2023 15:38:43 Mother Disorder of endocrine system pt. added direct ly (05/26) [email or web address] Not available 05/26/2023 15:39:03 Mother Hypertensive disorder pt. added direct ly (05/26) [email or web address] Not available 05/26/2023 15:40:29 Mother Obesity pt. added direct ly (05/26) [email or web address] Not available 05/26/2023 15:41:14 Sister Anemia pt. added direct ly (05/26) [email or web address] Not available 05/26/2023 15:38:43 Sister Disorder of endocrine system pt. added direct ly (05/26) [email or web address] Not available 05/26/2023 15:39:03 Sister Obesity pt. added direct ly (05/26) [email or web address] Not available 05/26/2023 15:41:14 Sister Disorder of thyroid gland pt. added direct ly (05/26) [email or web address] Not available 05/26/2023 15:41:44 Maternal Grandmother Disorder of endocrine system pt. added direct ly (05/26) [email or web address] Not available 05/26/2023 15:39:03 Maternal Grandmother Hearing loss pt. added direct ly (05/26) [email or web address] Not available 05/26/2023 15:40:00 Maternal Grandmother Obesity pt. added direct ly (05/26) [email or web address] Not available 05/26/2023 15:41:14 Maternal Grandmother Cerebrovascu lar accident pt. added direct ly (05/26) [email or web address] Not available 05/26/2023 15:41:35 Maternal Grandmother Diabetes mellitus [email or web address] Not available 2023 13:28:36 Maternal Grandfather Gastroesopha geal reflux disease pt. added direct ly (05/26) [email or web address] Not available 05/26/2023 15:39:15 Maternal Grandfather Myocardial infarction pt. added direct ly (05/26) [email or web address] Not available 05/26/2023 15:39:30 Maternal Grandfather Hearing loss pt. added direct ly (05/26) [email or web address] Not available 05/26/2023 15:40:00 Maternal Grandfather Obesity pt. added direct ly (05/26) [email or web address] Not available 05/26/2023 15:41:15 Maternal Grandfather Cerebrovascu lar accident pt. added direct ly (05/26) [email or web address] Not available 05/26/2023 15:41:35 Paternal Grandfather Heart disease pt. added direct ly (05/26) [email or web address] Not available 05/26/2023 15:39:40 Paternal Aunt Obesity pt. added direct ly (05/26) [email or web address] Not available 05/26/2023 15:41:15 Paternal Uncle Diabetes mellitus 1 [email or web address] Not available 2023 13:27:11 Paternal Grandmother Malignant tumor of breast [email or web address] Not available 2023 13:27:41 Unspecified Relation Lupus erythematosu s Aunt [email or web address] Not available 2023 13:28:15 Medical History Condition Response GI Problems Y Obesity Y Gynecological History Statement/Question Response Sexually Active? N Obstetrics History GPAL:G 0 P 0 0 0 0 Immunizations Vaccine Type Date Status Note Provider Nam e and Address Organization Details Recorded Time COVID-19, mRNA, LNP-S, PF, 30 mcg/0.3 mL dose 11/08/2020 completed Ebonie cottrell [place] - [facility] & [place] 04/28/2024 14:19:17 COVID-19, mRNA, LNP-S, PF, 30 mcg/0.3 mL dose 12/01/2020 completed Ebonei cotterll [place] - [facility] & [place] 04/28/2024 14:19:17 COVID-19, mRNA, LNP-S, PF, 30 mcg/0.3 mL dose 08/15/2021 completed GODWIN Francois - [facility] & [place] 04/28/2024 14:19:17 Influenza, split virus, quadrivalent, PF 06/30/2018 completed Ebonie cottrell [place] - [facility] & [place] 04/28/2024 14:19:17 Past Encounters Encounter ID Performer Location Encounter Start Date Encounter Closed Date Diagnosis/Indication Diagnosis SNOMED-CT Code Diagnosis ICD10 Code Diagnosis Note [id number] MD Hazel Jain and [address] [place] [address] 05/27/2023 11:37:54 05/27/2023 12:24:57 Mixed anxiety and depressive disorder 548773608 F41.8 [id number] MD Hazel Jain and [address] [place] [address] 08/22/2023 09:22:08 08/22/2023 10:04:41 Mixed anxiety and depressive disorder 308044692 F41.8 Increasing Paxil from 20mg to 30mg at this time. Continue Buspirone as needed. [id number] MD Hazel Jain and [address] [place] [address] 09/10/2023 10:09:37 09/10/2023 11:00:55 Acute sinusitis 20738782 J01.90 Tylenol/Mo ning p.r.n. fever. Push p.o. fluid intake. Patient to call if symptoms worsen. [id number] MD Hazel Jain and [address] [place] [address] 09/24/2023 11:29:52 09/24/2023 11:55:48 Acute sinusitis 73729815 J01.90 J20.9 Tylenol/Mo ning p.r.n. fever. Push p.o. fluid intake. Patient to call if symptoms worsen. [id number] MD Hazel Jain and [address] [place] [address] 11/19/2023 10:28:14 11/19/2023 11:18:20 Blood in urine 30932490 R31.9 Blood seen on UA again today in the office. Sending urine for full urinalysis and culture. Mixed anxi ety and depressive disorder 019813335 F41.8 Continue current medication s at this time. [id number] MD Hazel Jain and [address] [place] [address] 12/24/2023 09:39:19 12/24/2023 10:15:58 Essential hypertension 78142556 I10 Weight gain 1611412 R63. 5 R53.83 Family his tory of diabetes mellitus 980011566 Z83.3 Hyperlipid emia screening 054331935 Z13.347 [id number] MD Hazel Jain and [address] [place] [address] 02/24/2024 14:13:07 02/24/2024 15:15:08 Essential hypertension 50344761 I10 Changing from Lisinopril to Losartan due to the coughing on the Lisinopril . Bilateral tinnitus 78741 44310 102 H93.13 Referring to ENT for persistent ringing in ears. [id number] JOHN PAUL HERRON [facility] [address], [place] [address] 03/09/2024 09:52:48 03/09/2024 10:17:53 Bilateral subjective tinnitus of ears [id number] 451154 H93.13 Health Concerns Section Related Observation LastModified by Organization Detai ls LastModified Time None Recorded Concern Status LastModified by Organization Details LastModified Time None Recorded Advance Directives Directive N: Payers Encounter Date Sequence Insurance Name Policy Number Policy Garcia Covered Member ID Garcia Member ID Guarantor Name 09/24/2023 1 [employer] (H[employer]) [employer]IX[employer] Giuliana N Stamper [id number] Giuliana Stamper 11/19/2023 1 [employer] Giuliana N Stamper [id number] Giuliana Stamper 12/24/2023 1 [employer] (H[employer]) [employer] Giuliana N Stamper [id number] Giuliana Stamper 02/24/2024 1 [employer] (H[employer]) [employer] Giuliana N Stamper [id number] Giuliana Stamper 03/09/2024 1 [employer] (H[employer]) [employer]IX[employer] Giuliana N Stamper [id number] Giuliana Stamper Notes Date Note Type Note Provider Name and Address Organization Details Recorded Time 09/24/2023 text/html Was seen here 2 weeks ago and placed on Cefdinir and Prednisone. Went to [facility] a few days after her visit here. Had CXR done and told she had bronchitis but no pneumonia. Was told to continue the Cefdinir and was placed on more Prednisone. Still with tessalon perles at home from the [facility]. Here with continued c/o sinus drainage and coughing. Feeling some congestion in her chest now. No known fevers. No one else sick at home. Jadiel Huynh MD [address], [place], [address], [facility] & [place] 09/24/2023 12:23:18 11/19/2023 text/html Here for medicin e follow-up today.States the Paxil is working well. Trying to be consistent. Overall mood and anxiety seems to be improved. Denies side effects. Doesn't need to take the Buspirone very often.Was seen in ER recently and was diagnosed with ruptured ovarian cyst seen on CT scan. Had US of gallbladder and ovaries as well. Had blood work done and told it was normal. Was told she was constipated as well. Told she had blood in her urine also. Was started on Miralax which she has been taking. Started her period the day after being in the ER as well. Period stopped yesterday. Has appt with PSYCH NURSE tomorrow. Has also been trying to drink only water right now as well. Jadiel Huynh MD [address], [place], [address], [facility] & [place] 11/20/2023 19:21:56 12/24/2023 text/html States she had a NuvaRing placed just over a week ago. Had a headache, nausea, and cramping immediately. Symptoms did not resolve so she took it out about 4 days ago. Says her nausea improved but the headache and ringing in ears has continued. Pain is in the back of her head. No known fevers. Denies vomiting or diarrhea.States her BP has run on the higher side on several visits here and at [facility] in the past. Has family h/o HTN in her father, mother, and grandfather. Family h/o diabetes in mother and sister.Patient concerned that she has not had labs done in a long time. Has h/o low Vitamin D in the past but hasn't taken anything for a long time. Is fasting this morning. Jadiel Huynh MD [address], [place], [address], [facility] & [place] 12/25/2023 17:38:08 02/24/2024 text/html Here for medicin e follow-up. Had been started on Lisinopril about 2 months ago. Shortly after starting it, she developed a dry cough which is usually worse at night.Has not had her BP checked since being on the Lisinopril.States she continues having some ringing in both ears which has improved but not resolved despite the BP going down. Not sure about hearing loss.States father has issues of ear ringing. Jadiel Huynh MD [address], [place], [address], [facility] & [place] 02/24/2024 21:59:20 03/09/2024 text/html Ms. Rico was seen today for an audiologic evaluation due to ongoing ringing tinnitus bilaterally per Dr. Jadiel Huynh MD. Ms. Rico reports that her tinnitus has been ongoing for several months . 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 She denies hearing loss, dizziness/vertigo, drainage, aural fullness/pressure, and family hx of hearing loss. Otoscopic inspection was unremarkable bilaterally. Audiometric testing revealed normal hearing thresholds with good word rec scores bilaterally. Type A Tympanogram bilaterally 1-Discussed findings with Ms. Rico. 2-Discussed tinnitus management strategies. 3-F/u hearing testing as directed/necessary . JOHN PAUL HERRON [address], [place], [address], [facility] & [place] 03/09/2024 10:34:17 OBGyn Episode No OBEpisode recorded.
--- NOTE | 2024-12-15 12:43 | US_ITS ---
PROCEDURE: US TRANSVAGINAL CLINICAL INDICATION: f/u on ovarian cyst COMPARISON: No exams were available for comparison FINDINGS: Transvaginal sonographic images of the pelvis were obtained. UTERUS: 5.7 cm x 4.3cmx 3.9 cm with a combined endometrial thickness of 9.0 mm. There is a nabothian cyst in the cervix that measures 9 mm. LEFT OVARY: 5.9 cmx4.7 cmx3.3cm with a volume of 48ml. There is a cyst in the left ovary that has a ground-glass appearance consistent with an endometrioma. It measures 4.6 cm x 3.1 cm x 4.7 cm. RIGHT OVARY: 3.2cmx 2.1cmx 1.9 cm with a volume of 6.9ml. There is a follicle in the right ovary that measures 0.8 cm. Both ovaries are seen. Doppler flow to both ovaries are seen. There is no fluid in the cul-de-sac. IMPRESSION: 1. Anteverted uterus normal in shape and size. The endometrium measures 9.0 mm and appears normal. 2. The right ovary is seen and appears normal. The left ovary is enlarged and contains an endometrioma that measures 4.7 cm in size. 3. No fluid in the cul-de-sac. Dictated by: Augusto Rudolph MD 12/15/2024 15:03 Augusto Rudolph MD in OV 12/15/2024 15:03
== END 2024-12-15 23:59 | disposition home or self-care (01) ==
LOC: RAD 12:39
PROVIDERS: PCP Obstetrics & Gynecology; Visit Provider Obstetrics & Gynecology
DX: N83.202 Unspecified ovarian cyst, left side (principal)
CPT/HCPCS: 76830

== ENCOUNTER 2025-01-03 16:20 | Emergency (ER) | payer OTHER, SELFPAY ==
--- NOTE | 2025-01-03 16:26 | ED_ITS ---
Discharge Plan Disposition Patient Disposition: Home, Self-Care Condition: Fair Prescriptions Prescriptions: No Action buspirone 5 mg tablet 5 mg PO BID PRN omeprazole 20 mg capsule,delayed release(DR/EC) 20 mg PO DAILY doxycycline monohydrate 100 mg capsule 100 mg PO BID Qty: 20 0RF cephalexin 500 mg capsule 500 mg PO TID 7 Days Qty: 21 0RF drospirenone-ethinyl estradiol [JASMINA (28)] 3-0.02 mg tablet 1 tab PO DAILY Qty: 84 0RF paroxetine HCl 30 mg tablet 30 mg PO DAILY losartan 25 mg tablet 25 mg PO DAILY Referrals Follow up/Referrals: Ish Sherwood MD [Primary Care Provider] - See instructions Activity Restrictions/Add. Instructions Additional Instructions/Restrictions: Recommend taking Tylenol alternating with Motrin for pain and constitutional symptoms. If you have any increasing redness pain fever or any other concerning symptoms follow-up with your PCP return to the ER as needed. Clinical Impressions Clinical Impression: Cellulitis of chest wall Instructions Patient Instructions: DI for Skin Abscess Print Language Print Language: Belarusian Discharge ED Provider: Yahir Monk General Adult HPI <HUGH Akers - Last Filed: 01/03/25 21:09> General Chief complaint: Skin/Abscess/Foreign Body Stated complaint: Spider bite on right side waist line area Time Seen by Provider: 01/03/25 16:26 History of Present Illness HPI narrative: Patient presents for evaluation of spider bite . Patient reports that she was seen 2 days ago in the [facility] for a suspected spider bite . The borders were marked and the patient was started on Keflex and doxycycline. Location is on the right anterior chest and right lateral chest wall. The right anterior area has retreated from the marked borders however the right lateral has expanded beyond. It is gotten more painful and more swollen. She denies any fever chills hemoptysis hematochezia melena nausea vomiting diarrhea. Patient states that she believes it was a spider she saw spider in her vehicle on the way to work and then later in the day noticed that she was having some painful areas and then solve the potential affected areas. She does not recall being stung or bitten by anything else. Related Data Home Medications ?Medication ?Instructions ?Recorded ?Confirmed losartan 25 mg tablet 25 mg PO DAILY 03/01/24 01/02/25 paroxetine HCl 30 mg tablet 30 mg PO DAILY 03/01/24 01/02/25 buspirone 5 mg tablet 5 mg PO BID PRN 11/10/24 01/02/25 omeprazole 20 mg capsule,delayed 20 mg PO DAILY 11/10/24 01/02/25 release Previous Rx's ?Medication ?Instructions ?Recorded drospirenone 3 mg-ethinyl 1 tab PO DAILY #84 tabs 12/17/24 estradiol 0.02 mg tablet (JASMINA (28)) cephalexin 500 mg capsule 500 mg PO TID 7 days #21 caps 01/02/25 doxycycline monohydrate 100 mg 100 mg PO BID #20 caps 01/02/25 capsule Allergies Allergy/AdvReac Type Severity Reaction Status Date / Time codeine Allergy Mild nauseated Verified 01/02/25 08:12 nut - unspecified Allergy Verified 01/02/25 08:12 [facility] <HUGH Akers - Last Filed: 01/03/25 21:09> [facility] Disclaimer: The information contained in this section may have been updated after the patient was seen, as this information can be updated by other users. Medical History Ovarian cyst Pelvic pain Hypertension Menorrhagia Dysmenorrhea History of anemia Depression Anxiety Surgical History History of wisdom tooth extraction Family History Other No significant family history Social History Smoking Status: Never smoker second hand exposure: No alcohol intake: never substance use type: denies use current occupational status: employed Travel in the last 8 weeks?: None housing: house current occupational exposures/hazards: No Have you lived/traveled outside [place] in past 30 days?: No Contact w/someone who lives/traveled outside US past 30 days?: No Exposure to someone with infectious disease in past 14 days?: No Do you have a fever (greater than 100.4 F or 38 C)?: No Have you tested positive for COVID-19?: No Exposed to someone with COVID-19 in past 14 days?: No Do you have a sore throat?: No Do you have a cough?: No Do you have any weakness?: No Do you have any diarrhea?: No Are you experiencing any unusual bleeding?: No Do you have any muscle aches/pain?: No Do you have any abdominal pain?: No Are you experiencing loss of taste or smell?: No Other Medical History Have you received the Pneumonia Vaccine: No <HUGH Akers - Last Filed: 01/03/25 21:09> ROS Obtained: Yes Systems reviewed as appropriate & no additional complaints except as documented Physical Exam <HUGH Akers - Last Filed: 01/03/25 21:09> General General appearance: alert Respiratory Respiratory exam: Present normal lung sounds bilaterally Cardiovascular Cardiovascular exam: Present regular rate Neurological Exam Neurological exam: Present alert Medical Decision Making <HUGH Akers - Last Filed: 01/03/25 21:09> Medical Records Medical records reviewed: Yes I reviewed the patient's medical records. Screening: Per USPSTF and CDC recommendations, given the prevalence of disease in our region, it is our hospital?s policy to screen for HIV and viral Hepatitis for all patients aged 18 and over and those with ongoing risk factors. Luis Antonio Inquiry Pt receiving controlled substance: No Vital Signs: 01/03/25 16:33 01/03/25 17:01 01/03/25 17:31 Temperature 98.8 F Temperature Source Oral Pulse Rate 73 Pulse Rate [Right Radial] 71 Respiratory Rate 19 Blood Pressure 108/45 L 125/52 L Blood Pressure [Right Arm] 134/68 Blood Pressure Mean 66 75 Blood Pressure Mean [Right Arm] 90 Blood Pressure Source [Right Arm] Automatic Cuff Blood Pressure Position [Right Arm] Supine 02 Sat by Pulse Oximetry 97 98 Oxygen Delivery Method Room Air 01/03/25 18:01 01/03/25 21:47 Temperature 97.9 F Temperature Source Pulse Rate 75 88 Pulse Rate [Right Radial] Respiratory Rate 18 Blood Pressure 123/56 L 138/74 Blood Pressure [Right Arm] Blood Pressure Mean 78 Blood Pressure Mean [Right Arm] Blood Pressure Source [Right Arm] Blood Pressure Position [Right Arm] 02 Sat by Pulse Oximetry 97 Oxygen Delivery Method Room Air Lab Data Lab results reviewed: Yes I reviewed the patient's lab results. Lab Results 01/03/25 18:27: WBC 12.5 H, RBC 4.65, Hgb 11.2 L, Hct 35.1 L, MCV 75.5 L, MCH 24.1 L, MCHC 31.9, RDW 16.7, Plt Count 303, MPV 9.6, Neut % (Auto) 71.7, Lymph % (Auto) 19.3, Toole % (Auto) 8.3, Eos % (Auto) 0.1, Baso % (Auto) 0.2, Neut # (Auto) 9.0 H, Lymph # (Auto) 2.4, Toole # (Auto) 1.0, Eos # (Auto) 0.0, Baso # (Auto) 0.0, Sodium 133 L, Potassium 4.4, Chloride 108 H, Carbon Dioxide 24, Anion Gap 5.4, BUN 11, Creatinine 0.60, Estimated Creat Clear 112, Estimated GFR 113, Est GFR ( Amer) 137, Glucose 86, Calcium 8.4, Total Bilirubin 0.7, AST 28, ALT 18, Alkaline Phosphatase 79, Total Protein 6.6, Albumin 3.6, Globulin 3.0, Albumin/Globulin Ratio 1.2, Procalcitonin 0.081, Serum HCG, Qual Negative, HCV Ab AR w/Rflx PCR Qn Negative, HIV Ag/Ab Combo Qual Negative 01/03/25 18:27 01/03/25 18:27 Orders (Tests/Meds): ED MEDICATIONS Discontinued Medications Generic Name Dose Route Start Last Admin Trade Name Freq PRN Reason Stop Dose Admin Sodium Chloride 1,000 mls @ 999 mls/hr 01/03/25 18:11 01/03/25 19:14 Sod Chlor 0.9% 1000ml Bag IV 01/03/25 19:11 999 mls/hr .Q1H1M ONE Administration Dalbavancin 1,500 mg/ Dextrose 250 mls @ 500 mls/hr 01/03/25 20:35 01/03/25 20:58 IV 01/03/25 20:36 500 mls/hr ONCE ONE Administration Iopamidol 75 ml 01/03/25 20:23 01/03/25 20:24 Iopamidol-370 (76%);100ml Bottle IV 01/03/25 20:24 75 ml ONCE ONE Administration Ketorolac Tromethamine 15 mg 01/03/25 18:11 01/03/25 19:14 Ketorolac 30mg/Ml Vial IV 01/03/25 18:12 15 mg ONCE ONE Administration Sodium Chloride 10 ml 01/03/25 20:23 01/03/25 20:24 Sodium Chloride 0.9% 10ml Syr (Rad Only) IV 01/03/25 20:24 10 ml ONCE ONE Administration ORDERS Category Date Time Status CT abdomen pelvis w con Stat Cat Scan 01/03/25 18:[address] chest w con Stat Cat Scan 01/03/25 18:11 Completed POCUS Point of Care (ER Only) Stat Exams 01/03/25 16:36 Completed CBC w/Auto Diff [Complete Blood Count Auto Diff] Stat Lab 01/03/25 18:27 Completed CMP [Comprehensive Metabolic Panel] Stat Lab 01/03/25 18:27 Completed HCG Qualitative, Serum Stat Lab 01/03/25 18:27 Completed HIV Combo Stat Lab 01/03/25 18:27 Completed Hepatitis C Ab Qual. W/ RFX Stat Lab 01/03/25 18:27 Completed Procalcitonin Stat Lab 01/03/25 18:27 Completed Blood Culture Stat Micro 01/03/25 Received Tissue Perfus/Sepsis Re-Eval Sepsis Re-Evaluation Performed: Yes Date Performed: 01/03/25 Time Performed: 20:00 Medical Decision Narrative: In summary patient is a 34-year-old female who presents to the emergency department for evaluation of right anterior chest wall and left lateral flank cellulitis. Patient is hemodynamically stable upon arrival, afebrile. Physical exam reveals 2 areas of concern on her right chest wall. First area is anterior and inferior to her inferior mamillary fold that is approximately 3 cm in circumference with a very central area that appears to be the site of a bite or sting. It is not indurated is not tender and had marked borders that it is retreated well away from. The right lateral chest wall area however is in a similar line but is much much larger with a very large area of erythema and a central area of induration. It is very tender to palpation however I do not feel any fluctuance currently. It extends both anteriorly and posteriorly and encompasses most of the right flank. Differential diagnosis includes cellulitis versus abscess. Initial workup will be conducted with [facility] hematologic labs CT scan chest amount of pelvis given the large area of the chest. Initial interventions include IV Benadryl Toradol and Tylenol. Initial workup reviewed by me and her hematologic labs are significant for white count of 12.5 hemoglobin hematocrit 11.2 and 35.1 absolute neutrophil count of 9 serum hCG is negative procalcitonin is 0.081 and my informal interpretation of her CT imaging shows cellulitis of the right flank with no definitive fluid collection and likely represents early phlegmon formation. Please see final read for formal interpretation. Upon repeat evaluation patient reported improvement after initial intervention. Given this decision was made to DC oral antibiotics given the progression of her cellulitis and failure of outpatient treatment and give the patient a dose of Dalvance. Patient will be appropriate for discharge with strict return precautions. Patient verbalized understanding and agreement. <Yahir Monk MD - Last Filed: 01/04/25 15:40> Vital Signs: 01/03/25 16:33 01/03/25 17:01 01/03/25 17:31 Temperature 98.8 F Temperature Source Oral Pulse Rate 73 Pulse Rate [Right Radial] 71 Respiratory Rate 19 Blood Pressure 108/45 L 125/52 L Blood Pressure [Right Arm] 134/68 Blood Pressure Mean 66 75 Blood Pressure Mean [Right Arm] 90 Blood Pressure Source [Right Arm] Automatic Cuff Blood Pressure Position [Right Arm] Supine 02 Sat by Pulse Oximetry 97 98 Oxygen Delivery Method Room Air 01/03/25 18:01 01/03/25 21:47 Temperature 97.9 F Temperature Source Pulse Rate 75 88 Pulse Rate [Right Radial] Respiratory Rate 18 Blood Pressure 123/56 L 138/74 Blood Pressure [Right Arm] Blood Pressure Mean 78 Blood Pressure Mean [Right Arm] Blood Pressure Source [Right Arm] Blood Pressure Position [Right Arm] 02 Sat by Pulse Oximetry 97 Oxygen Delivery Method Room Air Lab Data Lab Results 01/03/25 18:27: WBC 12.5 H, RBC 4.65, Hgb 11.2 L, Hct 35.1 L, MCV 75.5 L, MCH 24.1 L, MCHC 31.9, RDW 16.7, Plt Count 303, MPV 9.6, Neut % (Auto) 71.7, Lymph % (Auto) 19.3, Toole % (Auto) 8.3, Eos % (Auto) 0.1, Baso % (Auto) 0.2, Neut # (Auto) 9.0 H, Lymph # (Auto) 2.4, Toole # (Auto) 1.0, Eos # (Auto) 0.0, Baso # (Auto) 0.0, Sodium 133 L, Potassium 4.4, Chloride 108 H, Carbon Dioxide 24, Anion Gap 5.4, BUN 11, Creatinine 0.60, Estimated Creat Clear 112, Estimated GFR 113, Est GFR ( Amer) 137, Glucose 86, Calcium 8.4, Total Bilirubin 0.7, AST 28, ALT 18, Alkaline Phosphatase 79, Total Protein 6.6, Albumin 3.6, Globulin 3.0, Albumin/Globulin Ratio 1.2, Procalcitonin 0.081, Serum HCG, Qual Negative, HCV Ab AR w/Rflx PCR Qn Negative, HIV Ag/Ab Combo Qual Negative Orders (Tests/Meds): ED MEDICATIONS Discontinued Medications Generic Name Dose Route Start Last Admin Trade Name Freq PRN Reason Stop Dose Admin Sodium Chloride 1,000 mls @ 999 mls/hr 01/03/25 18:11 01/03/25 19:14 Sod Chlor 0.9% 1000ml Bag IV 01/03/25 19:11 999 mls/hr .Q1H1M ONE Administration Dalbavancin 1,500 mg/ Dextrose 250 mls @ 500 mls/hr 01/03/25 20:35 01/03/25 20:58 IV 01/03/25 20:36 500 mls/hr ONCE ONE Administration Iopamidol 75 ml 01/03/25 20:23 01/03/25 20:24 Iopamidol-370 (76%);100ml Bottle IV 01/03/25 20:24 75 ml ONCE ONE Administration Ketorolac Tromethamine 15 mg 01/03/25 18:11 01/03/25 19:14 Ketorolac 30mg/Ml Vial IV 01/03/25 18:12 15 mg ONCE ONE Administration Sodium Chloride 10 ml 01/03/25 20:23 01/03/25 20:24 Sodium Chloride 0.9% 10ml Syr (Rad Only) IV 01/03/25 20:24 10 ml ONCE ONE Administration ORDERS Category Date Time Status CT abdomen pelvis w con Stat Cat Scan 01/03/25 18:[address] chest w con Stat Cat Scan 01/03/25 18:11 Completed POCUS Point of Care (ER Only) Stat Exams 01/03/25 16:36 Completed CBC w/Auto Diff [Complete Blood Count Auto Diff] Stat Lab 01/03/25 18:27 Completed CMP [Comprehensive Metabolic Panel] Stat Lab 01/03/25 18:27 Completed HCG Qualitative, Serum Stat Lab 01/03/25 18:27 Completed HIV Combo Stat Lab 01/03/25 18:27 Completed Hepatitis C Ab Qual. W/ RFX Stat Lab 01/03/25 18:27 Completed Procalcitonin Stat Lab 01/03/25 18:27 Completed Blood Culture Stat Micro 01/03/25 Received Medical Decision Narrative: In summary patient is a 34-year-old female who presents to the emergency department for evaluation of right anterior chest wall and left lateral flank cellulitis. Patient is hemodynamically stable upon arrival, afebrile. Physical exam reveals 2 areas of concern on her right chest wall. First area is anterior and inferior to her inferior mamillary fold that is approximately 3 cm in circumference with a very central area that appears to be the site of a bite or sting. It is not indurated is not tender and had marked borders that it is retreated well away from. The right lateral chest wall area however is in a similar line but is much much larger with a very large area of erythema and a central area of induration. It is very tender to palpation however I do not feel any fluctuance currently. It extends both anteriorly and posteriorly and encompasses most of the right flank. Differential diagnosis includes cellulitis versus abscess. Initial workup will be conducted with [facility] hematologic labs CT scan chest amount of pelvis given the large area of the chest. Initial interventions include IV Benadryl Toradol and Tylenol. Initial workup reviewed by me and her hematologic labs are significant for white count of 12.5 hemoglobin hematocrit 11.2 and 35.1 absolute neutrophil count of 9 serum hCG is negative procalcitonin is 0.081 and my informal interpretation of her CT imaging shows cellulitis of the right flank with no definitive fluid collection and likely represents early phlegmon formation. Please see final read for formal interpretation. Upon repeat evaluation patient reported improvement after initial intervention. Given this decision was made to DC oral antibiotics given the progression of her cellulitis and failure of outpatient treatment and give the patient a dose of Dalvance. Patient will be appropriate for discharge with strict return precautions. Patient verbalized understanding and agreement. I was consulted by the PATTY, and we discussed the complexity of the problems being addressed. I approved the treatment and management plan for this patient's care in the Emergency Department, thus performing a substantive portion of the medical decision making. Yahir Monk MD Critical Care <HUGH Akers - Last Filed: 01/03/25 21:09> Critical Care Time Critical Care Time: Yes Attestation: On 01/03/25, the high probability of a clinically significant, sudden or life threatening deterioration of the following system(s) required my full and direct attention, intervention and personal management. The time I documented below is in addition to time spent performing reported procedures but includes the following listed in this critical care notation. Total Time Total Critical Care Time: 35
--- OUTSIDE RECORDS SUMMARY | 2025-01-03 16:30 | XMS_ITS | Data Portability ---
Author Organization [facility] & JASON Decker ADMIN Address [address] [place] [id number] Care Team Providers Care Director Of Food And Nutrition Name Role Phone JADIEL HUYNH Primary Care Provider Assessment Encounter Date Assessment Date Assessment LastModified [...] Lab CBC w/ auto diff 2023 024 ION[facility], [address], [address], [place], [address], 4 06:38:33 TSH + free T4, serum 2023 024 IONIA [facility], [address], [address], [place], [address], 4 06:38:32 vitamin D, 25-hydroxy , total, serum 2023 024 IONIA [facility], [address], [address], [place], [address], 4 06:38:37 lipid panel, serum 2023 024 IONIA [facility], [address], [address], [place], [address], 4 06:38:35 CMP, serum or plasma 2023 024 IONIA [facility], [address], [address], [place], [address], 4 06:38:34 HbA1c (hemoglobi n A1c), blood 2023 024 IONIA [facility], [address], [address], [place], [address], 4 06:38:36 urinalysis , dipstick 2023 024 [facility], [address], [address], [place], [address], 4 11:18:39 culture, urine 2023 024 [facility], [address], [address], [place], [address], 4 06:37:52 urinalysis , complete 2023 024 [facility], [address], [address], [place], [address], 4 06:37:51 Referral otolaryngo logist referral 2023 024 C[facility]RIC [facility], [address] , [place], [address], 4 11:30:16 Procedures None recorded. Surgeries None recorded. Imaging None recorded. Medication Orders losartan 25 mg tablet 2023 024 [facility], [address], [address], 4 21:53:06 lisinopril 5 mg tablet 2023 024 [facility], [address] [place], [address], 4 21:54:31 paroxetine 30 mg tablet 2023 024 [facility], [address] [place], [address], 4 11:18:46 buspirone 5 mg tablet 2023 024 [facility], [address] [place], [address], 4 11:18:47 azithromyc in 250 mg tablet 2023 024 [facility], [address] [place], [address], 4 11:07:09 benzonatat e 200 mg capsule 2023 024 [facility], [address] [place], [address], 4 11:07:15 albuterol sulfate HFA 90 mcg/actuat ion aerosol inhaler 2023 024 [facility], [address] [place], [address], 4 11:56:50 Patient TargetsNo targets recorded. Patient InstructionsNo instructions recorded. Reason for Referral Telephone Recorder Referral fo r Bilateral tinnitus 33 yo female with persistent tinnitus Referring Physician: Jadiel Huynh, Internal Medicine, Encounter Date: 02/24/2024 Results Created Date Observation Date Name Description Value Unit Range Abnormal Flag Note LastModifiedBy Organization Detail LastModifiedTime 11/19/19 24 11/20/2023 URINA LYSIS , COMPL ETE specific gravity 1.012 1.005- 1.030 Not Available [facility] ([facility]) [address] [facility], [place], [address], 11/21/2023 06:37:50 11/19/19 24 11/20/2023 URINA LYSIS , COMPL ETE pH 6.0 5.0-7. 5 Not Available [facility] ([facility]) [address] [facility], [place], [address], 11/21/2023 06:37:50 11/19/19 24 11/20/2023 URINA LYSIS , COMPL ETE urine-color YELLOW yellow Not Available [facility] ([facility]) [address] [facility], [place], [address], 11/21/2023 06:37:50 11/19/19 24 11/20/2023 URINA LYSIS , COMPL ETE appearance CLEAR clear Not Available [facility] ([facility]) [address] [facility], [place], [address], 11/21/2023 06:37:50 11/19/19 24 11/20/2023 URINA LYSIS , COMPL ETE WBC esterase NEGATI VE negati ve Not Available [facility] ([facility]) [address] [place], [address], 11/21/2023 06:37:50 11/19/19 24 11/20/2023 URINA LYSIS , COMPL ETE protein NEGATI VE negati ve/tra ce Not Available [facility] ([facility]) [address] [place], [address], 11/21/2023 06:37:50 11/19/19 24 11/20/2023 URINA LYSIS , COMPL ETE glucose NEGATI VE negati ve Not Available [facility] ([facility]) [address] [place], [address], 11/21/2023 06:37:50 11/19/19 24 11/20/2023 URINA LYSIS , COMPL ETE ketones NEGATI VE negati ve Not Available [facility] ([facility]) [address] [place], [address], 11/21/2023 06:37:50 11/19/19 24 11/20/2023 URINA LYSIS , COMPL ETE occult blood 1+ negati ve abnormal Not Available [facility] ([facility]) [address] [place], [address], 11/21/2023 06:37:50 11/19/19 24 11/20/2023 URINA LYSIS , COMPL ETE bilirubin NEGATI VE negati ve Not Available [facility] ([facility]) [address] [place], [address], 11/21/2023 06:37:50 11/19/19 24 11/20/2023 URINA LYSIS , COMPL ETE urobilinogen ,semi-qn 0.2 mg/dL 0.2-1. 0 Not Available [facility] ([facility]) [address] [place], [address], 11/21/2023 06:37:50 11/19/19 24 11/20/2023 URINA LYSIS , COMPL ETE nitrite, urine NEGATI VE negati ve Not Available [facility] ([facility]) [address] [place], [address], 11/21/2023 06:37:50 11/19/19 24 11/20/2023 URINA LYSIS , COMPL ETE microscopic examination SEE BELOW: Micro scopi c was indic ated and was perfo rmed. Not Available [facility] ([facility]) [address] [place], [address], 11/21/2023 06:37:50 11/19/19 24 11/20/2023 URINA LYSIS , COMPL ETE WBC NONE SEEN /hpf 0 - 5 Not Available [facility] ([facility]) [address], [place], [address], 11/21/2023 06:37:50 11/19/19 24 11/20/2023 URINA LYSIS , COMPL ETE RBC NONE SEEN /hpf 0 - 2 Not Available [facility] ([facility]) [address] [facility], [place], [address], 11/21/2023 06:37:50 11/19/19 24 11/20/2023 URINA LYSIS , COMPL ETE epithelial cells (non renal) 0-10 /hpf 0 - 10 Not Available [facility] ([facility]) [address] [facility], [place], [address], 11/21/2023 06:37:50 11/19/19 24 11/20/2023 URINA LYSIS , COMPL ETE epithelial cells (renal) INTERN PRODUCT MARKETING MANAGER Not Available [facility] ([facility]) [address] [facility], [place], [address], 11/21/2023 06:37:50 11/19/19 24 11/20/2023 URINA LYSIS , COMPL ETE casts NONE SEEN /lpf none seen Not Available [facility] ([facility]) [address] [facility], [place], [address], 11/21/2023 06:37:50 11/19/19 24 11/20/2023 URINA LYSIS , COMPL ETE cast type INTERN PRODUCT MARKETING MANAGER Not Available [facility] ([facility]) [address] [facility], [place], [address], 11/21/2023 06:37:50 11/19/19 24 11/20/2023 URINA LYSIS , COMPL ETE crystals INTERN PRODUCT MARKETING MANAGER Not Available [facility] ([facility]) [address] [facility], [place], [address], 11/21/2023 06:37:50 11/19/19 24 11/20/2023 URINA LYSIS , COMPL ETE crystal type INTERN PRODUCT MARKETING MANAGER Not Available [facility] ([facility]) [address] [facility], [place], [address], 11/21/2023 06:37:50 11/19/19 24 11/20/2023 URINA LYSIS , COMPL ETE mucus threads INTERN PRODUCT MARKETING MANAGER Not Available [facility] ([facility]) [address] [facility], [place], [address], 11/21/2023 06:37:50 11/19/19 24 11/20/2023 URINA LYSIS , COMPL ETE bacteria NONE SEEN none seen/f ew Not Available [facility] ([facility]) [address] [facility], [place], [address], 11/21/2023 06:37:50 11/19/19 24 11/20/2023 URINA LYSIS , COMPL ETE yeast INTERN PRODUCT MARKETING MANAGER Not Available [facility] ([facility]) [address] [facility], [place], [address], 11/21/2023 06:37:50 11/19/19 24 11/20/2023 URINA LYSIS , COMPL ETE trichomonas INTERN PRODUCT MARKETING MANAGER Not Available [facility] ([facility]) [address] [facility], [place], [address], 11/21/2023 06:37:50 11/19/19 24 11/20/2023 URINA LYSIS , COMPL ETE comment INTERN PRODUCT MARKETING MANAGER Not Available [facility] ([facility]) [address] [place], [address], 11/21/2023 06:37:50 11/19/19 24 11/20/2023 URINA LYSIS , COMPL ETE microscopic examination INTERN PRODUCT MARKETING MANAGER Not Available [facility]) [address] [place], [address], 11/21/2023 06:37:50 11/19/19 24 11/20/2023 URINE CULTU RE, ROUTI NE urine culture, routine FINAL REPORT Not Available [facility] ([facility]) [address] [facility], [place], [address], 11/21/2023 06:37:52 11/19/19 24 11/20/2023 URINE CULTU RE, ROUTI NE result 1 COMMEN T Mixed uroge nital rasheed 25,00 0-50, 000 colon y formi ng units per mL Not Available [facility] ([facility]) [address] [facility], [place], [address], 11/21/2023 06:37:52 11/19/19 24 11/19/2023 urina lysis , dipst ick Leukocytes (reference range) negati ve Not Available [facility] [address], [place], [address], 11/19/2023 10:46:24 11/19/19 24 11/19/2023 urina lysis , dipst ick Nitrite (reference range:) negati ve Not Available [facility] [address] , [place], [address], 11/19/2023 10:46:24 11/19/19 24 11/19/2023 urina lysis , dipst ick Urobilinogen (reference range) 0.2 Not Available [facility] [address] , [place], [address], 11/19/2023 10:46:24 11/19/19 24 11/19/2023 urina lysis , dipst ick Protein (reference range) negati ve Not Available [facility] [address] , [place], [address], 11/19/2023 10:46:24 11/19/19 24 11/19/2023 urina lysis , dipst ick pH (reference range 5-8.5) 5.5 Not Available [facility] [place] [address], [place], [address], 11/19/2023 10:46:24 11/19/19 24 11/19/2023 urina lysis , dipst ick Blood (reference range:) modera te Not Available [facility] [place] [address], [place], [address], 11/19/2023 10:46:24 11/19/19 24 11/19/2023 urina lysis , dipst ick Specific [place] (reference range) 1.025 Not Available [facility] [address], [place], [address], 11/19/2023 10:46:24 11/19/19 24 11/19/2023 urina lysis , dipst ick Ketone (reference range) negati ve Not Available [facility] [place] [address] [facility] [address], [place], [address], 11/19/2023 10:46:24 11/19/19 24 11/19/2023 urina lysis , dipst ick Bilirubin (reference range) negati ve Not Available [facility] [address] [facility] [place], [address], 11/19/2023 10:46:24 11/19/19 24 11/19/2023 urina lysis , dipst ick Glucose (reference range) negati ve Not Available [facility] [address] , [place], [address], 11/19/2023 10:46:24 11/19/19 24 11/19/2023 urina lysis , dipst ick Color (reference range: yellow-brown ) Yellow Not Available [facility] [address], [place], [address], 11/19/2023 10:46:24 12/24/19 24 12/25/2023 TSH+F REE T4 TSH 1.700 uIU/m L 0.450- 4.500 Not Available [facility] ([facility]) [address] [facility], [place], [address], 12/25/2023 06:38:32 12/24/19 24 12/25/2023 TSH+F REE T4 T4,free(dire ct) 1.13 NG/dL 0.82-1 .77 Not Available [facility] ([facility]) [address] [facility], [place], [address], 12/25/2023 06:38:32 12/24/19 24 12/24/2023 CBC WITH DIFFE RENTI AL/PL ATELE T WBC 7.8 x10e3 /uL 3.4-10 .8 Not Available [facility] ([facility]) [address] [place], [address], 12/25/2023 06:38:33 12/24/1912/24/2023 CBC WITH DIFFE RENTI AL/PL ATELE T RBC 4.89 x10e6 /uL 3.77-5 .28 Not Available [facility] ([facility]) [address] [facility], [place], [address], 12/25/2023 06:38:33 12/24/1912/24/2023 CBC WITH DIFFE RENTI AL/PL ATELE T hemoglobin 12.0 g/dL 11.1-1 5.9 Not Available [facility] ([facility]) [address] [place], [address], 12/25/2023 06:38:33 12/24/19 24 12/24/2023 CBC WITH DIFFE RENTI AL/PL ATELE T hematocrit 38.2 % 34.0-4 6.6 Not Available [facility] ([facility]) [address] [facility], [place], [address], 12/25/2023 06:38:33 12/24/1912/24/2023 CBC WITH DIFFE RENTI AL/PL ATELE T MCV 78 fL 79-97 below low normal Not Available [facility] ([facility]) [address] [facility], [place], [address], 12/25/2023 06:38:33 12/24/1912/24/2023 CBC WITH DIFFE RENTI AL/PL ATELE T MCH 24.5 pg 26.6-3 3.0 below low normal Not Available [facility] ([facility]) [address] [facility], [place], [address], 12/25/2023 06:38:33 12/24/1912/24/2023 CBC WITH DIFFE RENTI AL/PL ATELE T MCHC 31.4 g/dL 31.5-3 5.7 below low normal Not Available [facility] ([facility]) [address] [facility], [place], [address], 12/25/2023 06:38:33 12/24/19 24 12/24/2023 CBC WITH DIFFE RENTI AL/PL ATELE T RDW 14.4 % 11.7-1 5.4 Not Available [facility] ([facility]) [address] [facility], [place], [address], 12/25/2023 06:38:33 12/24/1912/24/2023 CBC WITH DIFFE RENTI AL/PL ATELE T platelets 291 x10e3 /uL 150-45 0 Not Available [facility] ([facility]) [address] [facility], [place], [address], 12/25/2023 06:38:33 12/24/19 24 12/24/2023 CBC WITH DIFFE RENTI AL/PL ATELE T neutrophils 72 % not estab. Not Available [facility] ([facility]) [address] [facility], [place], [address], 12/25/2023 06:38:33 12/24/19 24 12/24/2023 CBC WITH DIFFE RENTI AL/PL ATELE T lymphs 23 % not estab. Not Available [facility] ([facility]) [address] [facility], [place], [address], 12/25/2023 06:38:33 12/24/19 24 12/24/2023 CBC WITH DIFFE RENTI AL/PL ATELE T monocytes 5 % not estab. Not Available [facility] ([facility]) [address] [facility], [place], [address], 12/25/2023 06:38:33 12/24/19 24 12/24/2023 CBC WITH DIFFE RENTI AL/PL ATELE T eos 0 % not estab. Not Available [facility] ([facility]) [address] [facility], [place], [address], 12/25/2023 06:38:33 12/24/19 24 12/24/2023 CBC WITH DIFFE RENTI AL/PL ATELE T basos 0 % not estab. Not Available [facility] ([facility]) [address] [facility], [place], [address], 12/25/2023 06:38:33 12/24/1912/24/2023 CBC WITH DIFFE RENTI AL/PL ATELE T immature cells INTERN PRODUCT MARKETING MANAGER Not Available [facility] ([facility]) [address] [facility], [place], [address], 12/25/2023 06:38:33 12/24/1912/24/2023 CBC WITH DIFFE RENTI AL/PL ATELE T neutrophils (absolute) 5.5 x10e3 /uL 1.4-7. 0 Not Available [facility] ([facility]) [address] [facility], [place], [address], 12/25/2023 06:38:33 12/24/19 24 12/24/2023 CBC WITH DIFFE RENTI AL/PL ATELE T lymphs (absolute) 1.8 x10e3 /uL 0.7-3. 1 Not Available [facility] ([facility]) [address] [facility], [place], [address], 12/25/2023 06:38:33 12/24/1912/24/2023 CBC WITH DIFFE RENTI AL/PL ATELE T monocytes(ab solute) 0.4 x10e3 /uL 0.1-0. 9 Not Available [facility] ([facility]) [address] [facility], [place], [address], 12/25/2023 06:38:33 12/24/19 24 12/24/2023 CBC WITH DIFFE RENTI AL/PL ATELE T eos (absolute) 0.0 x10e3 /uL 0.0-0. 4 Not Available [facility] ([facility]) [address] [facility], [place], [address], 12/25/2023 06:38:33 12/24/19 24 12/24/2023 CBC WITH DIFFE RENTI AL/PL ATELE T baso (absolute) 0.0 x10e3 /uL 0.0-0. 2 Not Available [facility] ([facility]) [address] [facility], [place], [address], 12/25/2023 06:38:33 12/24/19 24 12/24/2023 CBC WITH DIFFE RENTI AL/PL ATELE T immature granulocytes 0 % not estab. Not Available [facility] ([facility]) [address] [facility], [place], [address], 12/25/2023 06:38:33 12/24/19 24 12/24/2023 CBC WITH DIFFE RENTI AL/PL ATELE T immature grans (abs) 0.0 x10e3 /uL 0.0-0. 1 Not Available [facility] ([facility]) [address] [facility], [place], [address], 12/25/2023 06:38:33 12/24/19 24 12/24/2023 CBC WITH DIFFE RENTI AL/PL ATELE T NRBC INTERN PRODUCT MARKETING MANAGER Not Available [facility] ([facility]) [address], [place], [address], 12/25/2023 06:38:33 12/24/19 24 12/24/2023 CBC WITH DIFFE RENTI AL/PL ATELE T hematology comments: INTERN PRODUCT MARKETING MANAGER Not Available [facility] ([facility]) [address] [facility], [place], [address], 12/25/2023 06:38:33 12/24/19 24 12/25/2023 COMP. METAB OLIC PANEL (14) glucose 86 mg/dL 70-99 Not Available [facility] ([facility]) [address] [facility], [place], [address], 12/25/2023 06:38:34 12/24/19 24 12/25/2023 COMP. METAB OLIC PANEL (14) BUN 14 mg/dL 6-20 Not Available [facility] ([facility]) [address] [facility], [place], [address], 12/25/2023 06:38:34 12/24/19 24 12/25/2023 COMP. METAB OLIC PANEL (14) creatinine 0.73 mg/dL 0.57-1 .00 Not Available [facility] ([facility]) [address] [facility], [place], [address], 12/25/2023 06:38:34 12/24/19 24 12/25/2023 COMP. METAB OLIC PANEL (14) BUN/creatini ne ratio 19 9-23 Not Available [facility] ([facility]) [address] [facility], [place], [address], 12/25/2023 06:38:34 12/24/19 24 12/25/2023 COMP. METAB OLIC PANEL (14) sodium 139 mmol/ L 134-14 4 Not Available [facility] ([facility]) [address] [facility] [place], [address], 12/25/2023 06:38:34 12/24/19 24 12/25/2023 COMP. METAB OLIC PANEL (14) potassium 4.4 mmol/ L 3.5-5. 2 Not Available [facility] ([facility]) [address] [facility] [place], [address], 12/25/2023 06:38:34 12/24/19 24 12/25/2023 COMP. METAB OLIC PANEL (14) chloride 105 mmol/ L 96-106 Not Available [facility] ([facility]) [address] [facility] [place], [address], 12/25/2023 06:38:34 12/24/19 24 12/25/2023 COMP. METAB OLIC PANEL (14) carbon dioxide, total 20 mmol/ L 20-29 Not Available [facility] ([facility]) [address] [facility] [place], [address], 12/25/2023 06:38:34 12/24/19 24 12/25/2023 COMP. METAB OLIC PANEL (14) calcium 8.7 mg/dL 8.7-10 .2 Not Available [facility] ([facility]) [address] [facility] [place], [address], 12/25/2023 06:38:34 12/24/19 24 12/25/2023 COMP. METAB OLIC PANEL (14) protein, total 6.5 g/dL 6.0-8. 5 Not Available [facility] ([facility]) [address] [facility] [place], [address], 12/25/2023 06:38:34 12/24/19 24 12/25/2023 COMP. METAB OLIC PANEL (14) albumin 4.0 g/dL 3.9-4. 9 Not Available [facility] ([facility]) [address] [facility] [place], [address], 12/25/2023 06:38:34 12/24/19 24 12/25/2023 COMP. METAB OLIC PANEL (14) globulin, total 2.5 g/dL 1.5-4. 5 Not Available [facility] ([facility]) [address] [facility] [place], [address], 12/25/2023 06:38:34 12/24/19 24 12/25/2023 COMP. METAB OLIC PANEL (14) A/G ratio 1.6 1.2-2. 2 Not Available [facility] ([facility]) [address] [place], [address], 12/25/2023 06:38:34 12/24/19 24 12/25/2023 COMP. METAB OLIC PANEL (14) bilirubin, total 0.4 mg/dL 0.0-1. 2 Not Available [facility] ([facility]) [address] [place], [address], 12/25/2023 06:38:34 12/24/19 24 12/25/2023 COMP. METAB OLIC PANEL (14) alkaline phosphatase 87 IU/L 44-121 Not Available [facility] ([facility]) [address] [place], [address], 12/25/2023 06:38:34 12/24/19 24 12/25/2023 COMP. METAB OLIC PANEL (14) AST (SGOT) 13 IU/L 0-40 Not Available [facility] ([facility]) [address] [place], [address], 12/25/2023 06:38:34 12/24/19 24 12/25/2023 COMP. METAB OLIC PANEL (14) ALT (SGPT) 15 IU/L 0-32 Not Available [facility] ([facility]) [address] [place], [address], 12/25/2023 06:38:34 12/24/19 24 12/25/2023 LIPID PANEL cholesterol, total 166 mg/dL 100-19 9 Not Available [facility] ([facility]) [address] [place], [address], 12/25/2023 06:38:35 12/24/1912/25/2023 LIPID PANEL triglyceride s 85 mg/dL 0-149 Not Available [facility] ([facility]) [address] [place], [address], 12/25/2023 06:38:35 12/24/1912/25/2023 LIPID PANEL HDL cholesterol 56 mg/dL >39 Not Available [facility] ([facility]) [address] [place], [address], 12/25/2023 06:38:35 12/24/19 24 12/25/2023 LIPID PANEL VLDL cholesterol malena 16 mg/dL 5-40 Not Available [facility] ([facility]) [address] [place], [address], 12/25/2023 06:38:35 12/24/1912/25/2023 LIPID PANEL LDL chol calc ([facility]) 94 mg/dL 0-99 Not Available [facility] ([facility]) [address] [place], [address], 12/25/2023 06:38:35 12/24/1912/25/2023 LIPID PANEL comment: INTERN PRODUCT MARKETING MANAGER Not Available [facility] ([facility]) [address] [place], [address], 12/25/2023 06:38:35 12/24/1912/25/2023 HEMOG LOBIN A1C hemoglobin A1C 5.6 % 4.8-5. 6 Predi abete s: 5.7 - 6.4 Diabe lilian: >6.4 Glyce rose contr ol for adult s with diabe lilian: <7.0 Not Available [facility] ([facility]) [address] [facility], [place], [address], 12/25/2023 06:38:36 12/24/19 24 12/25/2023 VITAM IN [...] Natalia he DC: The Natio nal [facility] Press . 2. Reza lozada MF, Cadence vivar [place], Kasia off-F errar i EDWARD, et al. Evalu ation , treat ment, and preve ntion of vitam in D defic iency : an Endoc rine Socie ty clini malena pract ice guide line. JCEM. 2010; 96(7) :1911 -30. Not Available [facility] ([facility]) [address] [facility], [place], [address], 12/25/2023 06:38:37 09/14/19 24 09/14/2023 XR, chest No observ ation record ed. [facility] [address], [place], [address], 09/15/2023 09:38:22 03/09/20 24 03/09/2024 audio gram No observ ation record ed. [email or web address] Not Available 2023 10:40:10 Result Notes None recorded. Problems Name Problem SNOMED Code Status Onset Date Resolution Date Notes Provider Name and Address Organization Details Recorded Time Mixed anxiety and depressive disorder 333689220 Active 2022 Jadiel Huynh MD [address], [place], [id number] [place] [address] & [place] 3 12:24:54 Essential hypertensi on 14149877 Active 2023 Jadiel Huynh MD [address], [address] & [place] 4 17:37:34 Bilateral tinnitus [id number] Active 2023 Jadiel Huynh MD [address], [address] & [place] 4 21:58:23 Bilateral subjective tinnitus of ears [id number] 104 Active 2023 JOHN PAUL HERRON [address], [address] & [place] 4 10:33:11 Problem Notes None recorded. Procedures Surgical History Date Name Laterality Status Provider Name and Address Organization Details Recorded Time 2017 esophagogastroduodenoscopy completed Phil Price [facility] & [place] 4 13:29:19 2017 Colonoscopy completed Tammy Price [facility] 4 13:29:31 extraction of wisdom tooth completed Justus Turner [facility] & [place] 3 20:38:14 Imaging Results Imaging Date Name Status LastModified by Organiz ation Details LastModified Time 09/14/2023 XR, chest completed [facility] [address], [place], [address], 09/15/2023 09:38:22 03/09/2024 audiogram completed [email or web address] Information no t available 03/09/2024 10:40:10 Procedure Notes None recorded. Medical Equipment None Reported. Allergies Allergen ID Allergen Name Allergen Category Reaction Reaction Severity Criticality Documentation Date Start Date Code Code System Note Provider Name and Address Organization Details Recorded Time 859836 nut - unspecifi ed food anaphylax is anaphylax is moderate moderate Not available 08/12/2023 76988 UNK Justus cottrell, [facility] & [place] 3 20:33:24 211376 lisinopri l medicatio n cough Not available Not available 02/24/2024 21603 RxNorm Jadiel Huynh MD [address], [place], [address], [facility] - [facility] & [place] 4 15:15:16 26434 codeine medicatio n nausea other Not available Not available Not available 05/27/2023 2670 RxNorm GI intol eranc e Justus cottrell, [place] - [facility] & [place] 3 20:37:27 41298 peanut allergeni c extract food,medi cation Not available Not available Not available 05/27/2023 62154 8 RxNorm Jadiel Huynh MD [address] , [place], [address], [facility] & [place] 3 12:15:55 Medications Name Sig Start Date [...] Updated DateTime 4 162.56 cm 48.6 kg/m2 562847. 74 g 97.1 [degF] 56 /min 140 mm[Hg] 87 mm[Hg] Brandi Servin [facility] - [place] & [place] 4 11:38:53 Date Recorded Body height Body mass index (BMI) Body weight Heart rate Systolic blood pressure Diastolic blood pressure Provider Name and Address Organization Details Last Updated DateTime 4 162.56 cm 49.1 kg/m2 954669. 12 g 58 /min 118 mm[Hg] 68 mm[Hg] Brandi CONNELLY [facility] & [place] 4 10:41:15 Date Recorded Body height Body mass index (BMI) Body weight Body temperature Heart rate Systolic blood pressure Diastolic blood pressure Provider Name and Address Organization Details Last Updated DateTime 4 162.56 cm 49.3 kg/m2 596285. 01 g 96.1 [degF] 61 /min 159 mm[Hg] 85 mm[Hg] Brandi CONNELLY [facility] & [place] 4 09:47:15 Date Recorded Body height Body mass index (BMI) Body weight Body temperature Oxygen saturation Oxygen saturation in Arterial blood by Pulse oximetry Heart rate Systolic blood pressure Diastolic blood pressure Provider Name and Address Organization Details Last Updated DateTime 4 162.56 cm 49.6 kg/m2 711712. 19 g 97.8 [degF] 99 % 99 % 56 /min 118 mm[Hg] 70 mm[Hg] Lise Alcala [facility] & [place] 4 14:38:22 Social History Question Answer Notes LastModified by Organizat ion Details LastModified Time Tobacco Smoking Status [facility] [place] 08/12/2023 20:34:10 Do You Have An Advance Directive? No Information not available 08/12/2023 What Is Your Level Of Alcohol Consumption? None Information not available 08/12/2023 Are You Blind Or Do You Have Difficulty Seeing? No [email or web address] Information not available 08/12/2023 What Was The Date Of Your Most Recent Tobacco Screening? 05/26/2023 [email or web address] Information not available 08/12/2023 Are You Passively Exposed To Smoke? No [email or web address] Information no t available 08/12/2023 Do You Or Have You Ever Used Smokeless Tobacco? [id number] [email or web address] Information not available 08/12/2023 How Much Tobacco Do You Smoke? No [email or web address] Information not available 08/12/2023 Do You Feel Stressed (tense, Restless, Nervous, Or Anxious, Or Unable To Sleep At Night)? [id number] [email or web address] Information not available 08/12/2023 Do You Use Any Illicit Or Recreational Drugs? No [email or web address] Information not available 08/12/2023 How Many Years Have You Smoked Tobacco? 0 [email or web address] Information not available 08/12/2023 Sex: Unknown Functional Status Question Answer Note LastModified by Organizat ion Details LastModified Time What is your exercise level? Occasional Information not available 08/12/2023 Mental Status None [...] available 2023 13:28:15 Medical History Condition Response Obesity Y GI Problems Y Gynecological History Statement/Question Response Sexually Active? N Obstetrics History GPAL:G 0 P 0 0 0 0 Immunizations Vaccine Type Date Status Note Provider Nam e and Address Organization Details Recorded Time COVID-19, mRNA, LNP-S, PF, 30 mcg/0.3 mL dose 11/08/2020 completed Ebonie cottrell [place] - [facility] & [place] 04/28/2024 14:19:17 COVID-19, mRNA, LNP-S, PF, 30 mcg/0.3 mL dose 12/01/2020 completed Ebonie cottrell [place] - [facility] & [place] 04/28/2024 14:19:17 COVID-19, mRNA, LNP-S, PF, 30 mcg/0.3 mL dose 08/15/2021 completed GODWIN Francois - [facility] & [place] 04/28/2024 14:19:17 Influenza, split virus, quadrivalent, PF 06/30/2018 completed Ebonie cottrell [place] - [facility] & [place] 04/28/2024 14:19:17 Past Encounters Encounter ID Performer Location Encounter Start Date Encounter Closed Date Diagnosis/Indication Diagnosis SNOMED-CT Code Diagnosis ICD10 Code Diagnosis Note [id number] MD Hazel Jain and TRAC[address] [place] [address] 05/27/2023 11:37:54 05/27/2023 12:24:57 Mixed anxiety and depressive disorder 678584178 F41.8 [id number] MD Hazel Jain and [address] [place] [address] 08/22/2023 09:22:08 08/22/2023 10:04:41 Mixed anxiety and depressive disorder 247412824 F41.8 Increasing Paxil from 20mg to 30mg at this time. Continue Buspirone as needed. [id number] MD Hazel Jain and [address] [place] [address] 09/10/2023 10:09:37 09/10/2023 11:00:55 Acute sinusitis 84844705 J01.90 Tylenol/Mo ning p.r.n. fever. Push p.o. fluid intake. Patient to call if symptoms worsen. [id number] MD Hazel Jain and [address] [place] [address] 09/24/2023 11:29:52 09/24/2023 11:55:48 Acute sinusitis 36203967 J01.90 J20.9 Tylenol/Mo ning p.r.n. fever. Push p.o. fluid intake. Patient to call if symptoms worsen. [id number] MD Hazel Jain and [address] [place] [address] 11/19/2023 10:28:14 11/19/2023 11:18:20 Blood in urine 97245029 R31.9 Blood seen on UA again today in the office. Sending urine for full urinalysis and culture. Mixed anxi ety and depressive disorder 155283047 F41.8 Continue current medication s at this time. [id number] MD Hazel Jain and [address] [place] [address] 12/24/2023 09:39:19 12/24/2023 10:15:58 Essential hypertension 55006610 I10 Weight gain 4052320 R63. 5 R53.83 Family his tory of diabetes mellitus 433547991 Z83.3 Hyperlipid emia screening 470933335 Z13.132 [id number] MD Hazel Jain and [address] [place] [address] 02/24/2024 14:13:07 02/24/2024 15:15:08 Essential hypertension 45458027 I10 Changing from Lisinopril to Losartan due to the coughing on the Lisinopril . Bilateral tinnitus 45930 22596 102 H93.13 Referring to ENT for persistent ringing in ears. [id number] JOHN PAUL HERRON [facility] [address] [facility], [place] [address] 03/09/2024 09:52:48 03/09/2024 10:17:53 Bilateral subjective tinnitus of ears [id number] 879894 H93.13 Health Concerns Section Related Observation LastModified by Organization Detai ls LastModified Time None Recorded Concern Status LastModified by Organization Details LastModified Time None Recorded Advance Directives Directive N: Payers Encounter Date Sequence Insurance Name Policy Number Policy Garcia Covered Member ID Garcia Member ID Guarantor Name 09/24/2023 1 [employer] (H[employer]) [id number] Giuliana N Stamper [id number] Giuliana Stamper 11/19/2023 1 [id number] Giuliana N Stamper [id number] Giuliana Stamper 12/24/2023 1 [employer] (H[employer]) [employer] Giuliana N Stamper [id number] Giuliana Stamper 02/24/2024 1 [employer] (H[employer]) [employer] Giuliana N Stamper [id number] Giuliana Stamper 03/09/2024 1 [employer] (H[employer]) [employer] Giuliana N Stamper [id number] Giuliana Stamper Notes Date Note Type Note Provider Name and Address Organization Details Recorded Time 09/24/2023 text/html Was seen here 2 weeks ago and placed on Cefdinir and Prednisone. Went to [facility] a few days after her visit here. Had CXR done and told she had bronchitis but no pneumonia. Was told to continue the Cefdinir and was placed on more Prednisone. Still with tessalon perles at home from the [facility]. Here with continued c/o sinus drainage and coughing. Feeling some congestion in her chest now. No known fevers. No one else sick at home. Jadiel Huynh MD [address], [place], [address], [facility] & [place] 09/24/2023 12:23:18 11/19/2023 text/html Here for medicin [...] well. Period stopped yesterday. Has appt with [employer] tomorrow. Has also been trying to drink only water right now as well. Jadiel Huynh MD [address], [place], [address], [facility] & [place] 11/20/2023 19:21:56 12/24/2023 text/html States she had [...] side on several visits here and at [facility] in the past. Has family h/o HTN in her father, mother, and grandfather. Family h/o diabetes in mother and sister.Patient concerned that she has not had labs done in a long time. Has h/o low Vitamin D in the past but hasn't taken anything for a long time. Is fasting this morning. Jadiel Huynh MD [address], [place], [address], [facility] & [place] 12/25/2023 17:38:08 02/24/2024 text/html Here for medicin [...] ringing. Jadiel Huynh MD [address], [place], [address], [facility] & [place] 02/24/2024 21:59:20 03/09/2024 text/html Ms. Rico was seen today for an audiologic evaluation due to ongoing ringing tinnitus bilaterally per Dr. Jadiel Huynh MD. Ms. Rico reports that her tinnitus has been ongoing for several months . 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 She denies hearing loss, dizziness/vertigo, drainage, aural fullness/pressure, and family hx of hearing loss. Otoscopic inspection was unremarkable bilaterally. Audiometric testing revealed normal hearing thresholds with good word rec scores bilaterally. Type A Tympanogram bilaterally 1-Discussed findings with Ms. Rico. 2-Discussed tinnitus management strategies. 3-F/u hearing testing as directed/necessary . JOHN PAUL HERRON [address], [place], [address], [facility] & [place] 03/09/2024 10:34:17 OBGyn Episode No OBEpisode recorded.
[2025-01-03 16:33] VITALS: BP 134/68; PULSE 71; RESP 19; TEMP 37.1; O2SAT 97; BMI 46.3
[2025-01-03 17:01] VITALS: BP 108/45; PULSE 73; O2SAT 98
[2025-01-03 17:31] VITALS: BP 125/52
[2025-01-03 18:01] VITALS: BP 123/56; PULSE 75; O2SAT 97
--- NOTE | 2025-01-03 18:11 | CT_ITS ---
PROCEDURE INFORMATION: Exam: CT Chest With Contrast; Diagnostic Exam date and time: 01/03/2025 8:16 PM Age: 34 years old Clinical indication: Chest wall pain; Additional info: Cellulitis right flank/chest/abdomen TECHNIQUE: Imaging protocol: Diagnostic computed tomography of the chest with contrast. Radiation optimization: All CT scans at this facility use at least one of these dose optimization techniques: automated exposure control; mA and/or kV adjustment per patient size (includes targeted exams where dose is matched to clinical indication); or iterative reconstruction. Contrast material: ISOVUE; Contrast volume: 75 ml; Contrast route: IV; COMPARISON: CR XR CHEST 2V 09/14/2023 10:24 AM FINDINGS: Lungs: Unremarkable. No consolidation. No masses. Pleural spaces: Unremarkable. No pneumothorax. No pleural effusion. Heart: Unremarkable. No cardiomegaly. No pericardial effusion. Lymph nodes: Unremarkable. No enlarged lymph nodes. Vasculature: Unremarkable. No aortic aneurysm. Bones/joints: Unremarkable. No acute fracture. Soft tissues: Unremarkable. IMPRESSION: No acute findings.
--- NOTE | 2025-01-03 18:13 | CT_ITS ---
PROCEDURE INFORMATION: Exam: CT Abdomen And Pelvis With Contrast Exam date and time: 01/03/2025 8:16 PM Age: 34 years old Clinical indication: Abdominal pain; Flank; Right; Additional info: Cellulitis right flank/chest/abdomen TECHNIQUE: Imaging protocol: Computed tomography of the abdomen and pelvis with contrast. Radiation optimization: All CT scans at this facility use at least one of these dose optimization techniques: automated exposure control; mA and/or kV adjustment per patient size (includes targeted exams where dose is matched to clinical indication); or iterative reconstruction. Contrast material: ISOVUE; Contrast volume: 75 ml; Contrast route: IV; COMPARISON: US TRANSVAGINAL 12/15/2024 1:04 PM FINDINGS: Tubes, catheters and devices: None noted. Lungs: Lung bases appear clear. Heart: No significant coronary calcifications. No cardiomegaly. No significant pericardial effusion. Liver: Normal. No mass. Gallbladder and biliary ducts: Normal. No calcified stones. No ductal dilation. Pancreas: Normal. No ductal dilation. Spleen: Normal. No splenomegaly. Adrenal glands: Normal. No mass. Kidneys and ureters: Normal. No hydronephrosis. Stomach and bowel: Unremarkable. No obstruction. No mucosal thickening. Appendix: No evidence of appendicitis. Intraperitoneal space: Unremarkable. No free air. No significant fluid collection. Retroperitoneal space: No significant retroperitoneal inflammatory changes are noted. Vasculature: Unremarkable. No abdominal aortic aneurysm. Lymph nodes: Unremarkable. No enlarged lymph nodes. Urinary bladder: Unremarkable as visualized. Reproductive: Left ovarian cyst 5.5 x 4.1 cm. Bones/joints: Unremarkable. No acute fracture. Soft tissues: Right flank cellulitis. (series 2, image 212). IMPRESSION: 1. Left ovarian cyst 5.5 x 4.1 cm. Consider sonogram. 2. Right flank cellulitis. (series 2, image 212).
[2025-01-03 18:42] LABS: Basophils % 0.2 % (0.1-2.0); Eosinophils % 0.1 % (0.1-12.0); Hematocrit 35.1 % (37.0-47.0); Hemoglobin 11.2 g/dL (12.2-16.2); Lymphocytes # 2.4 K/mm3 (0.7-4.5); Lymphocytes % 19.3 % (10-50); Mean Corpuscular HGB Conc 31.9 g/dL (31.8-35.4); Mean Corpuscular Hemoglobin 24.1 pg (27.0-31.2); Mean Corpuscular Volume 75.5 fl (81-99); Mean Platelet Volume 9.6 fl (7.4-10.4); Monocytes % 8.3 % (1.7-9.3); Neutrophils % 71.7 % (37.0-80.0); Nucleated Red Blood Cells # 0 10^3/uL; Nucleated Red Blood Cells % 0 %; Platelet Count 303 K/mm3 (142-424); Red Blood Count 4.65 M/mm3 (4.20-5.40); Red Cell Distribution Width 16.7 % (11.5-17.5); Red Cell Distribution Width-SD 45.3 fL; White Blood Count 12.5 K/mm3 (4.8-10.8)
[2025-01-03 19:11] LABS: Alanine Aminotransferase 18 U/L (12-78); Albumin Level 3.6 g/dl (3.5-5.0); Albumin/Globulin Ratio 1.2 (1.1-1.8); Alkaline Phosphatase 79 U/L (38-126); Anion Gap 5.4 mEq/L (5-15); Aspartate Amino Transferase 28 U/L (14-36); Bilirubin,Total 0.7 mg/dl (0.2-1.3); Blood Urea Nitrogen 11 mg/dl (7-17); Calcium 8.4 mg/dl (8.4-10.2); Carbon Dioxide 24 mmol/L (22.0-30.0); Chloride 108 mmol/L (98-107); Creatinine Clearance Estimated 112 mL/min (50-200); Estimated Glomerular Filt Rate 113 ml/min (>60); GFR (African American) 137 ML/MIN (>60); Glucose 86 mg/dl (74-100); Potassium 4.4 mmoL/L (3.5-5.1); Sodium 133 mmol/L (136-145); Total Protein,Serum 6.6 g/dl (6.3-8.2)
[2025-01-03] MEDS: KETOROLAC 30MG/ML VIAL 15 MG IV (19:14)
[2025-01-03] MEDS: 0.9 % SODIUM CHLORIDE 1000ML 1,000 ML 999 ML IV (19:14)
[2025-01-03 19:15] LABS: HCG Qualitative, Serum Negative (Negative)
[2025-01-03 19:29] LABS: Procalcitonin 0.081 ng/mL (0.0-2.0)
[2025-01-03] MEDS: IOPAMIDOL-370 (76%);100ML BOTTLE 75 ML IV (20:24)
[2025-01-03] MEDS: SODIUM CHLORIDE 0.9% 10ML SYR (RAD ONLY) 10 ML IV (20:24)
[2025-01-03 20:55] LABS: HIV Combo NEGATIVE (Negative)
[2025-01-03] MEDS: DALBAVANCIN HCL 1,500 MG in DEXTROSE 5 % IN WATER 250 ML 500 MG IV (20:58)
[2025-01-03 21:04] LABS: Hepatitis C Ab Qual. W/ RFX NEGATIVE (Negative)
[2025-01-03 21:47] VITALS: BP 138/74; PULSE 88; RESP 18; TEMP 36.6; O2SAT 98
== END 2025-01-03 21:48 | disposition home or self-care (01) ==
PROVIDERS: Physician Assistant; Emergency Provider Emergency Medicine; PCP Pediatrics
DX: L03.313 Cellulitis of chest wall (principal)
CPT/HCPCS: 71260; 74177; 80053; 84145; 84703; 85025; 86803; 87040; 87389; 96361; 96374; 96375; 99291; J0875; J1885; J7030; J7060; Q9967

== ENCOUNTER 2025-02-10 08:55 | Outpatient (CLI) | payer OTHER, SELFPAY ==
--- NOTE | 2025-02-10 09:00 | US_ITS ---
PROCEDURE: US TRANSVAGINAL CLINICAL INDICATION: schedule for 8-12 weeks; left ovarian endometrioma COMPARISON: US US TRANSVAGINAL from 12/15/[address] ABDOMEN PELVIS W CON from 01/03/2025 FINDINGS: Transvaginal sonographic images of the pelvis were obtained. UTERUS: 5.9 cm x 4.7 cmx 3.7 cm with a combined endometrial thickness of 6.1mm. There a 0.7 cm nabothian cyst in the cervix. LEFT OVARY: 5.6cmx4.9 cmx3.6cm with a volume of 51.1ml. There continues to be endometrioma that measures 4.8 cm by 3.0 cm x 4.2 cm. This is similar in size from an ultrasound performed 12/15/2024. RIGHT OVARY: 2.6 cmx 2.2cmx1.8 cm with a volume of 5.2ml. Both ovaries are seen. Doppler flow to right ovary is seen. It was difficult to get good flow in the left ovary given the size of the endometrioma. There is no fluid in the cul-de-sac. IMPRESSION: 1. Anteverted uterus small in size and normal in shape. The endometrium is 6.1 mm. 2. The left ovary continues to have an endometrioma that measures 4.8 cm in size. This is similar in size to an ultrasound performed 12/15/2024. Difficult to get flow in the left ovary due to the size of the endometrioma. Right ovary appears normal. 3. No fluid in the cul-de-sac. Dictated by: Augusto Rudolph MD 02/10/2025 12:17 Augusto Rudolph MD in OV 02/10/2025 12:17
--- OUTSIDE RECORDS SUMMARY | 2025-02-10 09:00 | XMS_ITS | Referral Summary ---
Author Organization [facility] Address [address] [place] [address] Care Team Providers Care Firer Bisque Kiln Name Role Phone Ish Sherwood MD Primary Care Provider Encounters Date Type Department Care Team Description 11/11/2024 Travel 11/11/2024 3:11 PM EDT - 11/11/2024 6:07 PM EDT Emergency [facility] Emergency Department [address] [place] [id number] Rhiannon Jacobs MD Nausea and vomiting, unspecified vomiting type (Primary Dx); Diarrhea, unspecified type Discharge Disposition: Home or Self Care from Last 3 Months Allergies Active Allergy Reactions Criticality Noted Date Comments Codeine 11/11/2024 Tree Nuts 11/11/2024 Medications losartan (COZAAR) 25 MG tablet Take 1 tablet (25 mg total) by mouth daily. Active omeprazole (PriLOSEC OTC) 20 MG tablet Take 1 tablet (20 mg total) by mouth daily. Active PARoxetine (PAXIL) 10 mg/5 mL suspension Take by mouth every morning. Active Social History Tobacco Use Types Packs/Day Years Used Date Smoking Tobacco: Never Smokeless Tobacco: Never Tobacco Cessation:Counseling Given: Not Answered Alcohol Use Standard Drinks/Week Comments Never 0 (1 standard drink = 0.6 oz pur e alcohol) Comments Unknown Sex and Gender Information Value Date Recorded Sex Assigned at Not on file Legal Sex Female 2:08 PM CDT Gender Identity Not on file Sexual Orientation Not on file Last Filed Vital Signs Vital Sign Reading Time Taken Comments Blood Pressure 129/58 11/11/2024 5:50 PM EDT Pulse 55 11/11/2024 5:51 PM EDT Temperature 37.3 C (99.2 F) 11/11/2024 3:20 PM EDT Respiratory Rate 18 11/11/2024 3:20 PM EDT Oxygen Saturation 100% 11/11/2024 5:51 PM EDT Inhaled Oxygen Concentration - - Weight 127 kg (280 lb) 11/11/2024 3:20 PM EDT Height 162.6 cm (5' 4 ) 11/11/2024 3:20 PM EDT Body Mass Index 48.06 11/11/2024 3:20 PM EDT Plan of Treatment Not on file Procedures Procedure Name Priority Date/Time Associated Diagnosis Comments LIPASE STAT 11/11/2024 5:07 PM EDT MAGNESIUM STAT 11/11/2024 5:07 PM EDT COMPREHENSIVE METABOLIC PANEL STAT 11/11/2024 5:07 PM EDT CBC W/ AUTO DIFF STAT 11/11/2024 5:07 PM EDT COVID19 SARS-COV/COV-2 INFLUENZA A/B AG STAT 11/11/2024 4:36 PM EDT URINALYSIS MICROSCOPIC STAT 4:22 PM EDT URINALYSIS, REFLEX MICROSCOPIC AND CULTURE IF INDICATED STAT 11/11/2024 4:22 PM EDT FS_MODEL_IP POCT , URINE STAT 11/11/2024 4:20 PM EDT from Last 3 Months Results * (ABNORMAL) CBC with Auto Diff (11/11/2024 5:07 PM EDT) [facility] WBC 8.1 3.9 - 10.0 K/ L 11/11/2024 5:10 PM EDT [facility] RBC 4.94 3.93 - 6.08 M/ L 11/11/2024 5:10 PM EDT [facility] Hemoglobin 11.3 11.2 - 15.7 GM/DL 11/11/2024 5:10 PM EDT [facility] Hematocrit 37.1 34.1 - 44.9 % 11/11/2024 5:10 PM EDT [facility] MCV 75(L) 79 - 95 fL 11/11/2024 5:10 PM EDT [facility] MCH 22.9(L) 25.6 - 32.2 pg 11/11/2024 5:10 PM EDT [facility] MCHC 30.5(L) 32.2 - 36.5 GM/DL 11/11/2024 5:10 PM EDT [facility] RDW 16.2(H) 11.6 - 14.4 % 11/11/2024 5:10 PM EDT [facility] Platelets 263 163 - 369 K/CU MM 11/11/2024 5:10 PM EDT [facility] MPV 9.6 9.4 - 12.4 fL 11/11/2024 5:10 PM EDT [facility] % Neutros 89(H) 34 - 71 % 11/11/2024 5:10 PM EDT [facility] % Lymphs 7(L) 19 - 53 % 11/11/2024 5:10 PM EDT [facility] % Monos 4 4 - 13 % 11/11/2024 5:10 PM EDT [facility] % Eos 0(L) 1 - 7 % 11/11/2024 5:10 PM EDT [facility] % Baso 0 0 - 1 % 11/11/2024 5:10 PM EDT [facility] # Neutros 7.14(H) 1.56 - 6.13 K/ L 11/11/2024 5:10 PM EDT [facility] # Lymphs 0.53(L) 1.18 - 3.74 K/ L 11/11/2024 5:10 PM EDT [facility] # Monos 0.31 0.24 - 0.82 K/ L 11/11/2024 5:10 PM EDT [facility] # Eos 0.01(L) 0.04 - 0.54 K/ L 11/11/2024 5:10 PM EDT [facility] # Baso 0.02 0.01 - 0.08 K/ L 11/11/2024 5:10 PM EDT [facility] Immature Granulocytes-Re lative 0.50 0.00 - 0.60 % 11/11/2024 5:10 PM EDT [facility] # IG 0.04 0.00 - 0.05 K/uL 11/11/2024 5:10 PM EDT [facility] Blood Venipuncture / Unknown 11/11/2024 5:07 PM EDT 11/11/2024 5:07 PM EDT Narrative [facility] - 11/11/2024 5:10 PM EDT When CBC w/ Auto Diff is ordered the lab will add a Manual Differential as a quality check at no additional charge if: Lymphocytes greater than seventy five percent with normal or increased WBC Monocytes greater than Fifteen percent Basophil greater than four percent Bands >10% or several immature myeloids are seen on scan Blast? Flag noted Atypical Lymph flag noted Radha REESE-C LAB BLOOD ORDERABLES Final Re sult Performing Organization Address City/[facility]/ZIP Co de Phone Number [facility] [address] [phone] * Magnesium (11/11/2024 5:07 PM EDT) Magnesium 2.0 1.5 - 2.4 mg/dL 11/11/2024 5:26 PM EDT [facility] Blood Venipuncture / Unknown 11/11/2024 5:07 PM EDT 11/11/2024 5:07 PM EDT [employer] PA-C LAB BLOOD ORDERABLES Final Re sult Performing Organization Address City/[facility]/ZIP Co de Phone Number [facility] [address] [place] [address], [facility] [phone] * Lipase (11/11/2024 5:07 PM EDT) Lipase 19 13 - 75 U/L 11/11/2024 5:26 PM EDT [facility] Blood Venipuncture / Unknown 11/11/2024 5:07 PM EDT 11/11/2024 5:07 PM EDT Radha Lora PA-C LAB BLOOD ORDERABLES Final Re sult [facility] [address] [employer] [address] [phone] * (ABNORMAL) Comprehensive metabolic panel (11/11/2024 5:07 PM EDT) Sodium 142 136 - 146 meq/L 11/11/2024 5:26 PM EDT [facility] Potassium 3.8 3.5 - 5.1 meq/L 11/11/2024 5:26 PM EDT [facility] Chloride 112 102 - 112 meq/L 11/11/2024 5:26 PM EDT [facility] CO2 23 21 - 32 meq/L 11/11/2024 5:26 PM EDT [facility] Calcium 8.6 8.5 - 10.1 mg/dL 11/11/2024 5:26 PM EDT [facility] Glucose 91 74 - 106 mg/dL 11/11/2024 5:26 PM EDT [facility] BUN 19 7 - 22 mg/dL 11/11/2024 5:26 PM EDT [facility] Creatinine 0.81 0.55 - 1.02 mg/dL 11/11/2024 5:26 PM EDT [facility] BUN/Creatinine 23(H) 8 - 20 11/11/2024 5:26 PM EDT [facility] Albumin 3.3(L) 3.4 - 5.0 g/dL 11/11/2024 5:26 PM EDT [facility] Alkaline Phosphatase 85 27 - 136 U/L 11/11/2024 5:26 PM EDT [facility] ALT 18 12 - 78 U/L 11/11/2024 5:26 PM EDT [facility] AST 12 5 - 37 U/L 11/11/2024 5:26 PM EDT [facility] Total Bilirubin 0.6 0.2 - 1.3 mg/dL 11/11/2024 5:26 PM EDT [facility] Protein, Total 6.8 6.4 - 8.2 gm/dL 11/11/2024 5:26 PM EDT [facility] Anion Gap 11 9 - 20 11/11/2024 5:26 PM EDT [facility] A/G Ratio 0.9(L) 1.1 - 2.5 11/11/2024 5:26 PM EDT [facility] Globulin 3.5 1.5 - 4.5 g/dL 11/11/2024 5:26 PM EDT [facility] Osmolality Calc 285.0 5:26 PM EDT [facility] eGFR (mL/min/1.73m2) >60 >=60 mL/min/1.7 3m2 11/11/2024 5:26 PM EDT [facility] Comment:ESTIMATED GFR IS NOT ACCURATE CREATININE CLEARANCE IN PREDICTING GLOMERULAR FILTRATION RATE. ESTIMATED GFR IS NOT APPLICABLE FOR DIALYSIS PATIENTS. Blood Venipuncture / Unknown 11/11/2024 5:07 PM EDT 11/11/2024 5:07 PM EDT Radha Lora PA-C LAB BLOOD ORDERABLES Final Re sult [facility] [address] [place] [address] * COVID19 SARS-COV/COV-2 INFLUENZA A/B AG (11/11/2024 4:36 PM EDT) SARS-COV/COV 2 ANTIGEN Negative Negative, Invalid 11/11/2024 5:02 PM EDT [facility] INFLUENZA AAG Negative Negative, Invalid 11/11/2024 5:02 PM EDT [facility] INFLUENZA BAG Negative Negative, Invalid 11/11/2024 5:02 PM EDT [facility] Nasal Swab (Nasal) 11/11/2024 4:36 PM EDT 11/11/2024 4:37 PM EDT Narrative [facility] - 11/11/2024 5:02 PM EDT The [employer] System for Rapid Detection of SARS-CoV-2 & Flu A+B is only for in vitro diagnostic use under the Food and Drug Administration's Emergency Use Authorization (EUA). This product has not been FDA cleared or approved. Results should be correlated with the clinical history, epidemiological data, and other data available to the clinician evaluating the patient. SARS-CoV-2, influenza A, and influenza B viral antigens are generally detectable in anterior nasal swab specimens during the acute phase of infection. Positive results indicate the presence of viral antigens, but clinical correlation with patient history and other diagnostic information is necessary to determine infection status. Negative results are presumptive, do not rule out SARS-CoV-2 infection, and should not be used as the sole basis for treatment or patient management decisions, including infection control measures such as isolating from others and wearing masks. Serial testing should be performed in individuals with negative results at least twice over three days (with 48 hours between tests) for symptomatic individuals. Confirmation with a molecular assay may be necessary if there is a high likelihood of SARS-CoV-2 infection. All negative influenza A and B test results are presumptive and it is recommended that these results be confirmed by an FDA-cleared influenza A and B molecular assay. Negative results do not preclude influenza virus infection and should not be used as the sole basis for treatment or other management decisions. Radha Lora PA-C MICROBIOLOGY - GENERAL ORDERA BLES Final Result [facility] [address] [phone] * (ABNORMAL) Urinalysis, Reflex Microscopic and Culture If Indicated (11/11/2024 4:22 PM EDT) Color, UA Light Yellow 11/11/2024 4:32 PM EDT [facility] Clarity, UA Clear Clear 11/11/2024 4:32 PM EDT [facility] Specific [place], UA 1.014 1.005 - 1.030 11/11/2024 4:32 PM EDT [facility] pH, UA 7.0 6.0 - 8.0 11/11/2024 4:32 PM EDT [facility] Leukocytes, UA Negative Negative 11/11/2024 4:32 PM EDT [facility] Nitrite, UA Negative Negative 11/11/2024 4:32 PM EDT [facility] Protein, UA Negative Negative 11/11/2024 4:32 PM EDT [facility] Glucose, UA Normal Normal 11/11/2024 4:32 PM EDT [facility] Ketones, UA 1+(A) Negative 11/11/2024 4:32 PM EDT [facility] Bilirubin, UA Negative Negative 11/11/2024 4:32 PM EDT [facility] Blood, UA Trace(A) Negative 11/11/2024 4:32 PM EDT [facility] Urobilinogen, UA Normal Normal 11/11/2024 4:32 PM EDT [facility] Specimen Source Urine, Clean Catch 11/11/2024 4:32 PM EDT [facility] Urine URINE SPECIMEN COLLECTION, CLEAN CATCH / Unknown 11/11/2024 4:22 PM EDT 11/11/2024 4:22 PM EDT Radha Lora PA-C URINE ORDERABLES Final Result [facility] [address] [place] [address] * (ABNORMAL) Urinalysis Microscopic Only (11/11/2024 4:22 PM EDT) WBC, UA 0-2(A) None Seen /HPF 11/11/2024 4:31 PM EDT [facility] RBC, UA 0-2(A) None Seen /HPF 11/11/2024 4:31 PM EDT [facility] Bacteria, UA None Seen Trace, None Seen 11/11/2024 4:31 PM EDT [facility] SQUAMOUS EPITHELIAL 0-2(A) None Seen /HPF 11/11/2024 4:31 PM EDT [facility] Urine URINE SPECIMEN COLLECTION, CLEAN CATCH / Unknown 11/11/2024 4:22 PM EDT 11/11/2024 4:22 PM EDT Radha Lora PA-C URINE ORDERABLES Final Result [facility] [address] [place] [id number], [facility] [phone] * POCT , urine (11/11/2024 4:20 PM EDT) POC, URINE HCG Negative Negative INTERNAL QC (VALID/INVALID) Valid Kit Lot Number [id number] Expiration Date 01/14/26 11/11/2024 4:20 PM EDT Radha Lora PA-C FS_MODEL_IP_POINT OF CARE TEST ENTER/EDIT ORDERABLES Final Result from Last [address] [place] [address] [employer] Care Teams [employer] Relationship Specialty Start Date End Date Ish Sherwood MD [address] [place] [address] [address] [place] [address] PCP - General General Internal Medicine 11/11/24
--- OUTSIDE RECORDS SUMMARY | 2025-02-10 09:00 | XMS_ITS | Clinical Summary ---
Author Organization [facility] Address [address] [place] [address] Care Team Providers Care Door Furring Installer Name Role Phone Ish Sherwood Primary Care Provider [phone] Allergies Active Allergy Reactions Criticality Noted Date Comments Codeine Other - please docum ent in the comment field Low 05/13/2022 Peanut Allergen Powder-Dnfp Anaphylaxis High 11/14/2023 Tree Nuts Anaphylaxis High 06/18/2023 Social History Tobacco Use Types Packs/Day Years Used Date Smoking Tobacco: Never Assessed Comments Unknown Sex and Gender Information Value Date Recorded Sex Assigned at Not on file Legal Sex Female 10:19 AM EDT Gender Identity Not on file Sexual Orientation Not on file Last Filed Vital Signs Vital Sign Reading Time Taken Comments Blood Pressure 121/80 11/14/2023 5:55 PM EDT Pulse 70 11/14/2023 5:55 PM EDT Temperature 36.8 C (98.2 F) 11/14/2023 5:55 PM EDT Respiratory Rate 18 11/14/2023 5:55 PM EDT Oxygen Saturation 97% 11/14/2023 5:55 PM EDT Inhaled Oxygen Concentration - - Weight 127 kg (280 lb) 11/14/2023 10:31 AM EDT Height - - Body Mass Index - - Plan of Treatment Health Maintenance Due Date Last Done Comments [facility]-Depression Screening 1988 [facility]-/Child/Adol SDOH Screenings 1988 [facility]-Varicella Vaccines (1 of 2 - 13+ 2-dose series) 2001 HPV Vaccines (1 - 3-dose series) 2003 [facility]- SDOH Screenings 2006 [facility]-Adult SDOH Screenings 2006 [facility]-DTaP,Tdap,and Td Vaccines (1 - Tdap) 2007 [facility]-Hepatitis B Vaccines (1 of 3 - 19+ 3-dose series) 2007 [facility]-Pap Smear 2009 [facility]-Cervical Cancer Screening 2018 [facility]-HPV/Cotest 2018 [id number] Vaccine (4 - season) 2024 08/15/2021, 12/01/2020, 11/08/2020 [facility]-Influenza Vaccine (Season Ended) 2025 06/30/2018 [facility]-Zoster Vaccines (1 of 2) 2038 [facility]-HIV Screening Completed 11/14/2023 [facility]-Hepatitis C Screening Completed 11/14/2023 [facility]-HIB Vaccines Aged Out No longer e ligible based on patient's age to complete this topic [facility]-Hepatitis A Vaccines Aged Out No longer eligible based on patient's age to complete this topic [facility]-IPV Vaccines Aged Out No longer e ligible based on patient's age to complete this topic [facility]-Pneumococcal Vaccine: Pediatrics (0 to 5 Years) and At-Risk Patients (6 to 49 Years) Aged Out No longer eligible b ased on patient's age to complete this topic [facility]-Rotavirus Vaccines Aged Out No lo nger eligible based on patient's age to complete this topic Procedures Procedure Name Priority Date/Time Associated Diagnosis Comments HEPATITIS C ANTIBODY - ED W/REFLEX TO HCV QUANT PCR STAT 11/14/2023 11:17 AM EDT ED HIV 1/2 ANTIBODY/ANTIGEN SCREEN WITH REFLEX TO HIV I/II DIFFERENTIATION STAT 11/14/2023 11:17 AM EDT from Last 3 Months or Most Recently Relevant to Health Maintenance Results * ED HIV 1/2 Antibody/Antigen Screen w/Reflex to HIV 1/2 Differentiation (11/14/2023 11:17 AM EDT) HIV 1 & 2 Antibody/Antigen Screen Non Reactive Non Reactive 11/14/2023 12:06 PM EDT [facility] Comment:Screening for HIV 1 & 2 antibodies, and P24 antigen is NONREACTIVE. No confirmatory testing is required. Blood Venous blood specimen / Unknown Venipuncture / Unknown 11/14/2023 11:17 AM EDT 11/14/2023 11:26 AM EDT Ish Rai MD LAB BLOOD ORDERABLES Final Result [facility] [address] [place] [address] * Hepatitis C Antibody - ED (11/14/2023 11:17 AM EDT) [facility] Signature Hepatitis C Antibody Negative Negative 11/14/2023 12:07 PM EDT [facility] Blood Venous blood specimen / Unknown Venipuncture / Unknown 11/14/2023 11:17 AM EDT 11/14/2023 11:26 AM EDT Ish Rai MD LAB BLOOD ORDERABLES Final Result Performing Organization Address City/[facility] Co de Phone Number [facility] [address] [place] [address] from Last 3 Months or Most Recently Relevant to Health Maintenance Insurance [employer] Care Teams Door Furring Installer Relationship Specialty Start Date End Date Ish Sherwood [address] [place] [address] [facility] - General 11/14/23
--- OUTSIDE RECORDS SUMMARY | 2025-02-10 09:00 | XMS_ITS | Clinical Summary ---
Author Organization [facility] [email or web address] Address [address] [place] [address] Care Team Providers Care Welder Apprentice Arc Name Role Phone Ish Sherwood MD Primary Care Provider [phone] Allergies Active Allergy Reactions Criticality Noted Date Comments Codeine 11/11/2024 Tree Nuts 11/11/2024 Medications losartan (COZAAR) 25 MG tablet Take 1 tablet (25 mg total) by mouth daily. Active omeprazole (PriLOSEC OTC) 20 MG tablet Take 1 tablet (20 mg total) by mouth daily. Active PARoxetine (PAXIL) 10 mg/5 mL suspension Take by mouth every morning. Active Encounters Date Type Department Care Team Description 11/11/2024 3:11 PM EDT - 11/11/2024 6:07 PM EDT Emergency [facility] Emergency Department [address] [place] [phone] Rhiannon Jacobs MD Nausea and vomiting, unspecified vomiting type (Primary Dx); Diarrhea, unspecified type Discharge Disposition: Home or Self Care 11/11/2024 Travel from Last 3 Months Social History Tobacco Use Types Packs/Day Years [...] 11/11/2024 3:20 PM EDT Plan of Treatment Health Maintenance Due Date Last Done Comments Depression Screening (12+) 2000 HIV Screening 2003 Hepatitis C Screening 2006 Lipid Panel 2008 Pap Smear 2009 COVID-19 VACCINE (4 - 2023-2 5 season) 2024 08/15/2021, 12/01/2020, 11/08/2020 Influenza Vaccine (Season Ended) 2025 Tobacco Cessation Counseling and Screening (12+) 11/11/2025 11/11/2024 DTAP/TDAP/TD VACCINES (2 - T d or Tdap) 08/25/2034 08/25/2024 Pneumococcal Vaccine: 0-49 Years Aged Out No longer eligible b ased [...] with Auto Diff (11/11/2024 5:07 PM EDT) WBC 8.1 3.9 - 10.0 K/ L 11/11/2024 5:10 PM EDT [facility] RBC 4.94 3.93 - 6.08 M/ L 11/11/2024 5:10 PM EDT [facility] Hemoglobin 11.3 11.2 - 15.7 GM/DL 11/11/2024 5:10 PM EDT [facility] Hematocrit 37.1 34.1 - 44.9 % 11/11/2024 5:10 PM EDT [facility] MCV 75(L) 79 - 95 fL 11/11/2024 5:10 PM EDT [facility] MCH 22.9(L) 25.6 - 32.2 pg 11/11/2024 5:10 PM EDT [facility] MCHC 30.5(L) 32.2 - 36.5 GM/DL 11/11/2024 5:10 PM EDT [facility] RDW 16.2(H) 11.6 - 14.4 % 11/11/2024 5:10 PM EDT [facility] Platelets 263 163 - 369 K/CU MM 11/11/2024 5:10 PM EDT [facility] MPV 9.6 9.4 - 12.4 fL 11/11/2024 5:10 PM EDT [facility] % Neutros 89(H) 34 - 71 % 11/11/2024 5:10 PM EDT [facility] % Lymphs 7(L) 19 - 53 % 11/11/2024 5:10 PM EDT [facility] % Monos 4 4 - 13 % 11/11/2024 5:10 PM EDT [facility] % Eos 0(L) 1 - 7 % 11/11/2024 5:10 PM EDT [facility] % Baso 0 0 - 1 % 11/11/2024 5:10 PM EDT [facility] # Neutros 7.14(H) 1.56 - 6.13 K/ L 11/11/2024 5:10 PM EDT [facility] # Lymphs 0.53(L) 1.18 - 3.74 K/ L 11/11/2024 5:10 PM EDT [facility] # Monos 0.31 0.24 - 0.82 K/ L 11/11/2024 5:10 PM EDT [facility] # Eos 0.01(L) 0.04 - 0.54 K/ L 11/11/2024 5:10 PM EDT [facility] # Baso 0.02 0.01 - 0.08 K/ L 11/11/2024 5:10 PM EDT [facility] Immature Granulocytes-Re lative 0.50 0.00 - 0.60 % 11/11/2024 5:10 PM EDT [facility] # IG 0.04 0.00 - 0.05 K/uL 11/11/2024 5:10 PM EDT [facility] Blood Venipuncture / Unknown 11/11/2024 5:07 PM EDT 11/11/2024 5:07 PM EDT Narrative [facility] - 11/11/2024 5:10 PM EDT When [...] Blast? Flag noted Atypical Lymph flag noted us Radha Lora PA-C LAB BLOOD ORDERABLES Final Re sult [facility] [address] [place] [address], [facility] [phone] * Magnesium (11/11/2024 5:07 PM EDT) Pathologist [facility] Magnesium 2.0 1.5 - 2.4 mg/dL 11/11/2024 5:26 PM EDT [facility] Blood Venipuncture / Unknown 11/11/2024 5:07 PM EDT 11/11/2024 5:07 PM EDT Radha Lora PA-C LAB BLOOD ORDERABLES Final Re sult Performing Organization Address City/[facility] Co de Phone Number [facility] [address] [place] [address], [facility] [phone] * Lipase (11/11/2024 5:07 PM EDT) [facility] Lipase 19 13 - 75 U/L 11/11/2024 5:26 PM EDT [facility] Blood Venipuncture / Unknown 11/11/2024 5:07 PM EDT 11/11/2024 5:07 PM EDT [facility] LAB BLOOD ORDERABLES Final Re sult Performing Organization Address [facility] de Phone Number [facility] [address] [place] [address], [facility] [phone] * (ABNORMAL) Comprehensive metabolic panel (11/11/2024 5:07 PM EDT) Pathologist [facility] Sodium 142 136 - 146 meq/L 11/11/2024 5:26 PM EDT [facility] Potassium 3.8 3.5 - 5.1 meq/L 11/11/2024 5:26 PM EDT [facility] Chloride 112 102 - 112 meq/L 11/11/2024 5:26 PM EDT [facility] CO2 23 21 - 32 meq/L 11/11/2024 5:26 PM EDT [facility] Calcium 8.6 8.5 - 10.1 mg/dL 11/11/2024 5:26 PM EDT [facility] Glucose 91 74 - 106 mg/dL 11/11/2024 5:26 PM T [facility] BUN 19 7 - 22 mg/dL 11/11/2024 5:26 PM [facility] Creatinine 0.81 0.55 - 1.02 mg/dL 11/11/2024 5:26 PM [facility] BUN/Creatinine 23(H) 8 - 20 11/11/2024 5:26 PM [facility] Albumin 3.3(L) 3.4 - 5.0 g/dL 11/11/2024 5:26 PM [facility] Alkaline Phosphatase 85 27 - 136 U/L 11/11/2024 5:26 PM [facility] ALT 18 12 - 78 U/L 11/11/2024 5:26 PM [facility] AST 12 5 - 37 U/L 11/11/2024 5:26 PM [facility] Total Bilirubin 0.6 0.2 - 1.3 mg/dL 11/11/2024 5:26 PM [facility] Protein, Total 6.8 6.4 - 8.2 gm/dL 11/11/2024 5:26 PM [facility] Anion Gap 11 9 - 20 11/11/2024 5:26 PM [facility] A/G Ratio 0.9(L) 1.1 - 2.5 11/11/2024 5:26 PM [facility] Globulin 3.5 1.5 - 4.5 g/dL 11/11/2024 5:26 PM [facility] Osmolality Calc 285.0 5:26 PM [facility] eGFR (mL/min/1.73m2) >60 >=60 mL/min/1.7 3m2 11/11/2024 5:26 PM [facility] Comment:ESTIMATED GFR IS NOT ACCURATE CREATININE CLEARANCE IN PREDICTING GLOMERULAR FILTRATION RATE. ESTIMATED GFR IS NOT APPLICABLE FOR DIALYSIS PATIENTS. Blood Venipuncture / Unknown 11/11/2024 5:07 PM EDT 11/11/2024 5:07 PM EDT Radha Lora PA-C LAB BLOOD ORDERABLES Final Re sult [facility] [address] [place] [address], [facility] [phone] * COVID19 SARS-COV/COV-2 INFLUENZA A/B AG (11/11/2024 4:36 PM EDT) SARS-COV/COV 2 ANTIGEN Negative Negative, Invalid 11/11/2024 5:02 PM EDT [facility] INFLUENZA AAG Negative Negative, Invalid 11/11/2024 5:02 PM EDT [facility] INFLUENZA BAG Negative Negative, Invalid 11/11/2024 5:02 PM EDT [facility] Nasal Swab (Nasal) 11/11/2024 4:36 PM EDT 11/11/2024 4:37 PM EDT Narrative [facility] - 11/11/2024 5:02 PM EDT [employer] System for Rapid Detection of SARS-CoV-2 & [...] basis for treatment or other management decisions. us Radha Lora PA-C MICROBIOLOGY - GENERAL ORDERA BLES Final Result [facility] [address] [place] [address], [facility] [phone] * (ABNORMAL) Urinalysis, Reflex Microscopic and Culture If Indicated (11/11/2024 4:22 PM EDT) Color, UA Light Yellow 11/11/2024 4:32 PM EDT [facility] Clarity, UA Clear Clear 11/11/2024 4:32 PM EDT [facility] Specific [place] Light, UA 1.014 1.005 - 1.030 11/11/2024 4:32 PM EDT [facility] pH, UA 7.0 6.0 - 8.0 11/11/2024 4:32 PM EDT [facility] Leukocytes, UA Negative Negative 11/11/2024 4:32 PM EDT [facility] Nitrite, UA Negative Negative 11/11/2024 4:32 PM EDT [facility] Protein, UA Negative Negative 11/11/2024 4:32 PM EDT [facility] Glucose, UA Normal Normal 11/11/2024 4:32 PM EDT [facility] Ketones, UA 1+(A) Negative 11/11/2024 4:32 PM EDT [facility] Bilirubin, UA Negative Negative 11/11/2024 4:32 PM EDT [facility] Blood, UA Trace(A) Negative 11/11/2024 4:32 PM EDT [facility] Urobilinogen, UA Normal Normal 11/11/2024 4:32 PM EDT [facility] Specimen Source Urine, Clean Catch 11/11/2024 4:32 PM EDT [facility] Urine URINE SPECIMEN COLLECTION, CLEAN CATCH / Unknown 11/11/2024 4:22 PM EDT 11/11/2024 4:22 PM EDT us Radha Lora PA-C URINE ORDERABLES Final Result Performing Organization Address City/[facility]/ZIP Co de Phone Number [facility] [address] [phone] * (ABNORMAL) Urinalysis Microscopic Only (11/11/2024 4:22 PM EDT) WBC, UA 0-2(A) None Seen /HPF 11/11/2024 4:31 PM EDT [facility] RBC, UA 0-2(A) None Seen /HPF 11/11/2024 4:31 PM EDT [facility] Bacteria, UA None Seen Trace, None Seen 11/11/2024 4:31 PM EDT [facility] SQUAMOUS EPITHELIAL 0-2(A) None Seen /HPF 11/11/2024 4:31 PM EDT [facility] Urine URINE SPECIMEN COLLECTION, CLEAN CATCH / Unknown 11/11/2024 4:22 PM EDT 11/11/2024 4:22 PM EDT Radha Lora PA-C URINE ORDERABLES Final Result Performing Organization Address [facility] Co de Phone Number [facility] [address] [phone] * POCT , urine (11/11/2024 4:20 PM EDT) POC, URINE HCG Negative Negative INTERNAL QC (VALID/INVALID) Valid Kit Lot Number [id number] Expiration Date 01/14/26 11/11/2024 4:20 PM EDT Radha Lora PA-C FS_MODEL_IP_POINT OF CARE TEST ENTER/EDIT ORDERABLES Final Result from Last 3 Months Insurance [facility] [employer] Care Teams Welder Apprentice Arc Relationship Specialty Start Date End Date Ish Sherwood MD [address] [place] [address] [address] [place] [address] PCP - General General Internal Medicine 11/11/24
== END 2025-02-10 23:59 | disposition home or self-care (01) ==
PROVIDERS: PCP Pediatrics; Visit Provider Obstetrics & Gynecology
DX: N80.122 Deep endometriosis of left ovary (principal)
CPT/HCPCS: 76830